=== PATIENT | male | born 1945 | race Caucasian/White ===

== ENCOUNTER 2022-05-15 17:42 | Inpatient (IN) ==
--- NOTE | 2022-05-15 18:13 | Emergency Department Note ---
History of Present Illness General Chief complaint: Referred by Doctor Stated complaint: WHITE BLOOD COUNT ELEVATED, Time Seen by Provider: 05/15/22 17:55 History of Present Illness Maximum Pain Intensity: 0 76-year-old male presents emergency department with a an ongoing treatment for pneumonia that started a few weeks ago. Patient was on doxycycline he did stop taking that 1 week ago. Patient was on prednisone as well and stopped that this week. Patient's been feeling short of breath and had a outpatient evaluation from [facility] today and repeat labs is white blood cell count in April was 11.7 and today it is 40,000. There was a concern for increased potential for infection. Patient has some burning with urination a cough and complains of shortness of breath. Patient denies chest pain. Patient denies nausea vomiting diarrhea denies fever. There are no other mitigating or alleviating factors Home Medications Medication Instructions Recorded Confirmed Type albuterol sulfate 90 mcg/actuation 2 puff inhalation Q4 PRN Shortness 06/18/19 08/02/19 History aerosol inhaler (Ventolin HFA) Of Breath amlodipine 5 mg tablet 2.5 mg PO QAM 06/18/19 08/02/19 History amoxicillin 500 mg capsule 2,000 mg PO UD PRN prior to dental 06/18/19 08/02/19 History appointments aspirin 81 mg tablet,delayed 81 mg PO QAM 06/18/19 08/02/19 History release atorvastatin 80 mg tablet 80 mg PO PM 06/18/19 08/02/19 History hydrocodone 5 mg-acetaminophen 325 1 tab PO BID 06/18/19 08/02/19 History mg tablet isosorbide mononitrate 30 mg 30 mg PO QAM 06/18/19 08/02/19 History tablet,extended release 24 hr lamotrigine 100 mg tablet 100 mg PO BID 06/18/19 08/02/19 History (Lamictal) latanoprost 0.005 % eye drops 1 drp ophthalmic (eye) HS 06/18/19 08/02/19 Histor y levetiracetam 750 mg tablet 1,500 mg PO BID 06/18/19 08/02/19 History losartan 25 mg tablet 25 mg PO QAM 06/18/19 08/02/19 History nitroglycerin 0.4 mg sublingual 0.4 mg sublingual UD PRN Angina 06/18/19 06/18/19 History tablet warfarin 5 mg tablet 5 mg PO USEASDIRECTD 06/18/19 08/02/19 History white petrolatum-mineral oil 83 1 applic ophthalmic (eye) Q4 PRN 06/18/19 08/02/19 History %-15 % eye ointment Dry Eye(S) Jardiance 10 mg PO DAILY 05/15/22 05/15/22 History Vitamin D3 25 mcg PO DAILY 05/15/22 05/15/22 History atenolol 25 mg tablet 25 mg PO DAILY 05/15/22 05/15/22 History brimonidine 0.2 % eye drops 1 drp ophthalmic (eye) BID 05/15/22 05/15/22 History fluticasone 250 mcg-salmeterol 50 1 inh inhalation BID 05/15/22 05/15/22 History mcg/dose blistr powdr for inhalation furosemide 20 mg tablet 20 mg PO USEASDIRECTD 05/15/22 05/15/22 History levetiracetam 500 mg tablet 500 mg PO BID 05/15/22 05/15/22 History omeprazole 20 mg PO DAILY 05/15/22 05/15/22 History potassium chloride 10 mEq 10 meq PO USEASDIRECTD 05/15/22 05/15/22 History tablet,extended release(part/cryst) Allergies Allergy/AdvReac Type Severity Reaction Status Date / Time lisinopril Allergy Mild HIVES Verified 08/02/19 10:23 Past Med/Surg History Medical History (Updated 05/15/22 @ 21:32 by Deejay Palacios DO) Singh's palsy Bulging lumbar disc Diabetes mellitus, [facility]not on any medications Difficulty swallowing Glaucoma Heart disease "s/p PTCA and RCA stent placement in 2005" follows with Dr. 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 Escobar--on keppra/lamictal Sleep apnea 2L oxygen via N/C Tremor of right hand Surgical History History of arthroscopy of right knee History of cardiac cath x2---1 prior to 2006 ([place]) and then 2006 (@ [facility] [place], [place]) History of colonoscopy with polypectomy History of heart artery stent x2--last 2005 per pt 2 stents total History of tonsillectomy History of tooth extraction all upper teeth History of wisdom tooth extraction Family History Sister Family history of diabetes mellitus Sister Family history of diabetes mellitus Brother Family history of esophageal cancer Other No family history of adverse response to anesthesia Social History Smoking Status: Never smoker Second Hand Exposure: Yes (parents smoked/ environment); Hx Alcohol Use: Yes Alcohol type: hard liquor Hx Substance Use: No Preferred Language: Maltese Communication Ability: Effective Slackman Required: No Beliefs That Will Affect Care: None Current Living Situation: Spouse Feels Safe at Home: Yes Assistive Devices: Cane, Denture - Upper, Glasses and Oxygen - at Night Review of Systems A total of 10 systems reviewed and were otherwise negative Constitutional: + body aches; no fever Respiratory: + cough and + dyspnea Cardiovascular: no chest pain Gastrointestinal: no abdominal pain Genitourinary (Male): + urinary frequency and + urinary hesitancy Physical Exam Vital Signs Vital Signs - 24 hr 05/15/22 17:45 05/15/22 18:23 05/15/22 18:26 Temperature 37.1 C Temperature Source Temporal Artery Scan Pulse Rate 76 73 Pulse Rate [Apical] 67 Pulse Rate from SpO2 Sensor Pulse Rhythm Irregular Pulse Rhythm [Apical] Irregular Respiratory Rate 18 20 20 Respiratory Effort / Characteristics Non-Labored Respiratory Depth Normal Blood Pressure 121/81 Blood Pressure [Right Arm] 111/65 Blood Pressure Mean 94 Blood Pressure Mean [Right Arm] 80 Pulse Oximetry 92 90 94 Oxygen Delivery Method Room Air Room Air Room Air Oxygen Flow Rate Sepsis Recent Fever Within 48 Hours No Sepsis New/Unexplained Change in Mental Status No Sepsis Action Taken by Nursing No Action Required 05/15/22 18:30 05/15/22 18:45 05/15/22 18:46 Temperature Temperature Source Pulse Rate Pulse Rate [Apical] 63 67 Pulse Rate from SpO2 Sensor Pulse Rhythm Pulse Rhythm [Apical] Respiratory Rate 16 17 Respiratory Effort / Characteristics Respiratory Depth Blood Pressure Blood Pressure [Right Arm] 105/66 129/69 Blood Pressure Mean Blood Pressure Mean [Right Arm] 79 89 Pulse Oximetry 92 88 L 95 Oxygen Delivery Method Room Air Room Air Nasal Cannula Oxygen Flow Rate 2 Sepsis Recent Fever Within 48 Hours Sepsis New/Unexplained Change in Mental Status Sepsis Action Taken by Nursing 05/15/22 19:15 05/15/22 18:59 05/15/22 18:59 Temperature Temperature Source Pulse Rate 67 Pulse Rate [Apical] 71 Pulse Rate from SpO2 Sensor Pulse Rhythm Pulse Rhythm [Apical] Respiratory Rate 20 15 Respiratory Effort / Characteristics Respiratory Depth Blood Pressure 126/69 Blood Pressure [Right Arm] 136/85 Blood Pressure Mean 88 Blood Pressure Mean [Right Arm] 102 Pulse Oximetry 96 Oxygen Delivery Method Nasal Cannula Oxygen Flow Rate 2 Sepsis Recent Fever Within 48 Hours Sepsis New/Unexplained Change in Mental Status Sepsis Action Taken by Nursing 05/15/22 19:00 05/15/22 19:00 05/15/22 19:13 Temperature Temperature Source Pulse Rate 64 Pulse Rate [Apical] Pulse Rate from SpO2 Sensor Pulse Rhythm Pulse Rhythm [Apical] Respiratory Rate 19 18 Respiratory Effort / Characteristics Respiratory Depth Blood Pressure 101/70 Blood Pressure [Right Arm] Blood Pressure Mean 80 Blood Pressure Mean [Right Arm] Pulse Oximetry Oxygen Delivery Method Oxygen Flow Rate Sepsis Recent Fever Within 48 Hours Sepsis New/Unexplained Change in Mental Status Sepsis Action Taken by Nursing 05/15/22 19:15 05/15/22 19:15 05/15/22 19:20 Temperature Temperature Source Pulse Rate 71 68 Pulse Rate [Apical] Pulse Rate from SpO2 Sensor 71 67 Pulse Rhythm Pulse Rhythm [Apical] Respiratory Rate 18 22 Respiratory Effort / Characteristics Respiratory Depth Blood Pressure 136/85 Blood Pressure [Right Arm] Blood Pressure Mean 102 Blood Pressure Mean [Right Arm] Pulse Oximetry 95 97 Oxygen Delivery Method Oxygen Flow Rate Sepsis Recent Fever Within 48 Hours Sepsis New/Unexplained Change in Mental Status Sepsis Action Taken by Nursing 05/15/22 19:30 05/15/22 19:30 05/15/22 19:40 Temperature Temperature Source Pulse Rate 70 67 Pulse Rate [Apical] Pulse Rate from SpO2 Sensor 71 68 Pulse Rhythm Pulse Rhythm [Apical] Respiratory Rate 21 15 Respiratory Effort / Characteristics Respiratory Depth Blood Pressure 140/82 Blood Pressure [Right Arm] Blood Pressure Mean 101 Blood Pressure Mean [Right Arm] Pulse Oximetry 95 94 Oxygen Delivery Method Oxygen Flow Rate Sepsis Recent Fever Within 48 Hours Sepsis New/Unexplained Change in Mental Status Sepsis Action Taken by Nursing 05/15/22 20:00 05/15/22 19:50 05/15/22 20:00 Temperature Temperature Source Pulse Rate 67 Pulse Rate [Apical] 67 Pulse Rate from SpO2 Sensor 73 Pulse Rhythm Pulse Rhythm [Apical] Respiratory Rate 18 18 Respiratory Effort / Characteristics Respiratory Depth Blood Pressure 109/83 Blood Pressure [Right Arm] 109/83 Blood Pressure Mean 91 Blood Pressure Mean [Right Arm] 91 Pulse Oximetry 96 95 Oxygen Delivery Method Nasal Cannula Oxygen Flow Rate 2 Sepsis Recent Fever Within 48 Hours Sepsis New/Unexplained Change in Mental Status Sepsis Action Taken by Nursing 05/15/22 20:00 05/15/22 20:10 05/15/22 20:20 Temperature Temperature Source Pulse Rate 71 76 78 Pulse Rate [Apical] Pulse Rate from SpO2 Sensor 68 71 79 Pulse Rhythm Pulse Rhythm [Apical] Respiratory Rate 22 20 20 Respiratory Effort / Characteristics Respiratory Depth Blood Pressure Blood Pressure [Right Arm] Blood Pressure Mean Blood Pressure Mean [Right Arm] Pulse Oximetry 96 96 96 Oxygen Delivery Method Oxygen Flow Rate Sepsis Recent Fever Within 48 Hours Sepsis New/Unexplained Change in Mental Status Sepsis Action Taken by Nursing 05/15/22 20:30 05/15/22 20:30 05/15/22 20:40 Temperature Temperature Source Pulse Rate 69 79 Pulse Rate [Apical] Pulse Rate from SpO2 Sensor 75 76 Pulse Rhythm Pulse Rhythm [Apical] Respiratory Rate 21 22 Respiratory Effort / Characteristics Respiratory Depth Blood Pressure 126/91 Blood Pressure [Right Arm] Blood Pressure Mean 102 Blood Pressure Mean [Right Arm] Pulse Oximetry 93 93 Oxygen Delivery Method Oxygen Flow Rate Sepsis Recent Fever Within 48 Hours Sepsis New/Unexplained Change in Mental Status Sepsis Action Taken by Nursing GENERAL: Patient is awake alert in no acute distress patient is resting comfortably and showing no signs of anxiety; patient is smiling interactive and in great spirits when conversing with me EYES: The conjunctivae are clear. The pupils are round and reactive. EARS, NOSE, MOUTH AND THROAT: The nose is without any evidence of any deformity. Mucous membranes are moist. Tongue is midline. NECK: The neck is nontender and supple. RESPIRATORY: Normal respiratory effort is noted there is no evidence of wheezing rhonchi or rales CARDIOVASCULAR: Irregularly irregular noted there no murmurs rubs or gallops normal S1 normal S2. GASTROINTESTINAL: The abdomen is soft. Abdomen is nontender. PELVIS: The Pelvis is stable. No tenderness to palpation is noted. BACK: No midline tenderness or or step-off noted range of motion in flexion extension as well as rotation no signs of muscle spasm noted MUSCULOSKELETAL/EXTREMITIES: There is no evidence of gross deformity full range of motion is noted in the hips and shoulders. SKIN: There is no obvious evidence of any rash. There are no petechiae, pallor or cyanosis noted. Patient has bruising to the right lower extremity that appears to be in different stages of healing in the right medrano region NEUROLOGIC: Patient is awake alert and oriented x3 strength is symmetric Course Reevaluation(s) Reevaluation #1: Patient was started on oxygen at 2 L due to pulse ox of 88%, patient was given IV Lasix, patient was empirically given IV Rocephin. Patient has an elevated white blood cell count chest x-ray concerning for CHF questionable pneumonia. Patient has stable A. fib and is on Coumadin. Patient is resting in no distress conversant with me speaking in full sentences. Time: 19:11 Consultations Consultation #1: Case was discussed with the [facility] hospitalist for admission Time: 19:34 Administered Medications Discontinued Medications Furosemide (Furosemide 40 Mg/4 Ml Vial) 40 mg IV ONE ONE Stop: 05/15/22 19:02 Last Admin: 05/15/22 19:15 Dose: 40 mg Documented By: SHLEBY Ceftriaxone Sodium (Rocephin) 2,000 mg in 70 mls @ 140 mls/hr IV NOW STA Stop: 05/15/22 19:30 Last Infusion: 05/15/22 19:45 Dose: 0 mls/hr Documented By: Admin: 05/15/22 19:15 Dose: 140 mls/hr Documented By: SHELBY Medical Decision Making Medical Records Attestation: I reviewed the patient's medical records. Home Medications Current Medication List: was personally reviewed by me Laboratory Data Attestation: I reviewed the patient's lab results. Leukocytosis which is increasing since April when the patient had a white blood cell count of 11 Result diagrams: 05/15/22 18:15 05/15/22 18:15 Lab Results 05/15/22 05/15/22 05/15/22 Range/Units 18:15 18:15 18:15 WBC 40.80 H* (4.8-10.8) K/ul RBC 5.47 (4.63-6.08) M/uL Hgb 16.8 (14.0-18.0) g/dl Hct 49.4 (40.1-51.0) % MCV 90.3 (80.0-100.0) fL MCH 30.7 (25.0-34.0) pg MCHC 34.0 (32.0-36.0) g/dL RDW Std Deviation 47.3 H (36.4-46.3) fL RDW Coeff of Ton 14.4 (11.5-14.5) % Plt Count 157 (130-400) K/uL MPV 11.0 (9.4-12.4) fL Immature Gran % (Auto) 2.0 % Neut % (Auto) 64.8 % Lymph % (Auto) 9.8 % Kleberg % (Auto) 23.0 % Eos % (Auto) 0.2 % Baso % (Auto) 0.2 % Neut # (Auto) 26.39 H (1.4-6.5) K/uL Lymph # (Auto) 4.01 H (1.2-3.4) K/uL Kleberg # (Auto) 9.40 H (0.24-0.82) K/uL Eos # (Auto) 0.08 (0-0.50) K/uL Baso # (Auto) 0.10 (0-0.2) K/uL Immature Gran # (Auto) 0.82 H (0.00-0.02) K/uL Echinocytes 2+ Acanthocytes (Spur) 1+ PT (9.0-12.0) Seconds INR (0.9-1.1) Sodium 133 L (136-145) mmol/L Potassium 4.0 (3.5-5.1) mmol/L Chloride 100 (98-107) mmol/L Carbon Dioxide 27 (21-32) mmol/L Anion Gap 6 (3-11) BUN 22 (6-23) mg/dl Creatinine 0.77 (0.6-1.4) mg/dl Est Cr Clr Drug Dosing 111.4 ml/min Est GFR ( Amer) 102.9 ml/min Est GFR (Non-Af Amer) 88.8 ml/min BUN/Creatinine Ratio 28.6 H (10-20) Glucose 108 H (70-99(Fasting)) mg/dl Lactate 1.4 (0.4-2.0) mmol/L Calcium 8.8 (8.5-10.1) mg/dl Magnesium 2.5 H (1.7-2.4) mg/dl Total Bilirubin 1.7 H (0.2-1.0) mg/dl Direct Bilirubin 0.4 H (0-0.2) mg/dl AST 16 (13-39) U/L ALT 36 (7-52) U/L Alkaline Phosphatase 56 (34-104) U/L Troponin I High Sens 13.4 (0-20) pg/ml B-Natriuretic Peptide (0-100) pg/ml Total Protein 6.6 (6.0-8.3) gm/dl Albumin 3.6 (3.4-5.0) gm/dl Procalcitonin (0-0.5) ng/ml Urine Color Urine Appearance (Clear) Urine pH (4.5-7.5) Ur Specific [place] (1.000-1.030) Urine Protein (Negative) Urine Glucose (UA) (Negative) Urine Ketones (Negative) Urine Blood (Negative) Urine Nitrite (Negative) Urine Bilirubin (Negative) Urine Urobilinogen (Negative) Ur Leukocyte Esterase (Negative) Urine WBC (Auto) (0-5) /hpf Urine RBC (Auto) (0-4) /hpf U Hyaline Cast (Auto) (0-5) /lpf U Epithel Cells (Auto) (0-5) /lpf Urine Bacteria (Auto) (Negative) SARS-CoV-2, RNA, NAAT (NEGATIVE) 05/15/22 05/15/22 05/15/22 Range/Units 18:15 18:15 18:15 WBC (4.8-10.8) K/ul RBC (4.63-6.08) M/uL Hgb (14.0-18.0) g/dl Hct (40.1-51.0) % MCV (80.0-100.0) fL MCH (25.0-34.0) pg MCHC (32.0-36.0) g/dL RDW Std Deviation (36.4-46.3) fL RDW Coeff of Ton (11.5-14.5) % Plt Count (130-400) K/uL MPV (9.4-12.4) fL Immature Gran % (Auto) % Neut % (Auto) % Lymph % (Auto) % Kleberg % (Auto) % Eos % (Auto) % Baso % (Auto) % Neut # (Auto) (1.4-6.5) K/uL Lymph # (Auto) (1.2-3.4) K/uL Kleberg # (Auto) (0.24-0.82) K/uL Eos # (Auto) (0-0.50) K/uL Baso # (Auto) (0-0.2) K/uL Immature Gran # (Auto) (0.00-0.02) K/uL Echinocytes Acanthocytes (Spur) PT 24.0 H (9.0-12.0) Seconds INR 2.4 H (0.9-1.1) Sodium (136-145) mmol/L Potassium (3.5-5.1) mmol/L Chloride (98-107) mmol/L Carbon Dioxide (21-32) mmol/L Anion Gap (3-11) BUN (6-23) mg/dl Creatinine (0.6-1.4) mg/dl Est Cr Clr Drug Dosing ml/min Est GFR ( Amer) ml/min Est GFR (Non-Af Amer) ml/min BUN/Creatinine Ratio (10-20) Glucose (70-99(Fasting)) mg/dl Lactate (0.4-2.0) mmol/L Calcium (8.5-10.1) mg/dl Magnesium (1.7-2.4) mg/dl Total Bilirubin (0.2-1.0) mg/dl Direct Bilirubin (0-0.2) mg/dl AST (13-39) U/L ALT (7-52) U/L Alkaline Phosphatase (34-104) U/L Troponin I High Sens (0-20) pg/ml B-Natriuretic Peptide (0-100) pg/ml Total Protein (6.0-8.3) gm/dl Albumin (3.4-5.0) gm/dl Procalcitonin 0.17 (0-0.5) ng/ml Urine Color Urine Appearance (Clear) Urine pH (4.5-7.5) Ur Specific [place] (1.000-1.030) Urine Protein (Negative) Urine Glucose (UA) (Negative) Urine Ketones (Negative) Urine Blood (Negative) Urine Nitrite (Negative) Urine Bilirubin (Negative) Urine Urobilinogen (Negative) Ur Leukocyte Esterase (Negative) Urine WBC (Auto) (0-5) /hpf Urine RBC (Auto) (0-4) /hpf U Hyaline Cast (Auto) (0-5) /lpf U Epithel Cells (Auto) (0-5) /lpf Urine Bacteria (Auto) (Negative) SARS-CoV-2, RNA, NAAT NEGATIVE (NEGATIVE) 05/15/22 05/15/22 Range/Units 18:15 19:18 WBC (4.8-10.8) K/ul RBC (4.63-6.08) M/uL Hgb (14.0-18.0) g/dl Hct (40.1-51.0) % MCV (80.0-100.0) fL MCH (25.0-34.0) pg MCHC (32.0-36.0) g/dL RDW Std Deviation (36.4-46.3) fL RDW Coeff of Ton (11.5-14.5) % Plt Count (130-400) K/uL MPV (9.4-12.4) fL Immature Gran % (Auto) % Neut % (Auto) % Lymph % (Auto) % Kleberg % (Auto) % Eos % (Auto) % Baso % (Auto) % Neut # (Auto) (1.4-6.5) K/uL Lymph # (Auto) (1.2-3.4) K/uL Kleberg # (Auto) (0.24-0.82) K/uL Eos # (Auto) (0-0.50) K/uL Baso # (Auto) (0-0.2) K/uL Immature Gran # (Auto) (0.00-0.02) K/uL Echinocytes Acanthocytes (Spur) PT (9.0-12.0) Seconds INR (0.9-1.1) Sodium (136-145) mmol/L Potassium (3.5-5.1) mmol/L Chloride (98-107) mmol/L Carbon Dioxide (21-32) mmol/L Anion Gap (3-11) BUN (6-23) mg/dl Creatinine (0.6-1.4) mg/dl Est Cr Clr Drug Dosing ml/min Est GFR ( Amer) ml/min Est GFR (Non-Af Amer) ml/min BUN/Creatinine Ratio (10-20) Glucose (70-99(Fasting)) mg/dl Lactate (0.4-2.0) mmol/L Calcium (8.5-10.1) mg/dl Magnesium (1.7-2.4) mg/dl Total Bilirubin (0.2-1.0) mg/dl Direct Bilirubin (0-0.2) mg/dl AST (13-39) U/L ALT (7-52) U/L Alkaline Phosphatase (34-104) U/L Troponin I High Sens (0-20) pg/ml B-Natriuretic Peptide 163 H (0-100) pg/ml Total Protein (6.0-8.3) gm/dl Albumin (3.4-5.0) gm/dl Procalcitonin (0-0.5) ng/ml Urine Color Yellow Urine Appearance Cloudy A (Clear) Urine pH 5.0 (4.5-7.5) Ur Specific [place] 1.024 (1.000-1.030) Urine Protein Trace H (Negative) Urine Glucose (UA) 3+ H (Negative) Urine Ketones Negative (Negative) Urine Blood Trace H (Negative) Urine Nitrite Positive A (Negative) Urine Bilirubin Negative (Negative) Urine Urobilinogen Negative (Negative) Ur Leukocyte Esterase Trace H (Negative) Urine WBC (Auto) 10-30 H (0-5) /hpf Urine RBC (Auto) 0-4 (0-4) /hpf U Hyaline Cast (Auto) 1-5 (0-5) /lpf U Epithel Cells (Auto) 0-5 (0-5) /lpf Urine Bacteria (Auto) 4+ H (Negative) SARS-CoV-2, RNA, NAAT (NEGATIVE) Imaging Data Attestation: I personally reviewed and interpreted this imaging study as follows: Radiologist's Impression: Chest X-Ray 05/15/22 17:53 XR chest 1V portable HISTORY: Sepsis COMPARISON: Chest 02/23/2016. FINDINGS: No pneumothorax. No pleural effusions. The cardiac silhouette is mildly enlarged. There is perihilar interstitial/vascular thickening suggestive of mild congestive change. A few bibasilar linear densities favor subsegmental atelectasis. IMPRESSION: 1. Cardiomegaly and mild congestive change. 2. A few bibasilar linear densities favor subsegmental atelectasis. ACT 112: Negative or not required by law. Electronically signed by: Panchito Rivas M.D. 05/15/2022 6:24 PM ECG Data Attestation: I personally reviewed and interpreted this ECG as follows: Additional Comments: EKG interpreted by me atrial fibrillation rate of 66 left axis deviation no obvious ST segment elevation or depression MDM Narrative Medical decision making differential diagnosis includes sepsis, pneumonia, reaction to prednisone,urinary tract infection dehydration, chf. Plan is to initiate sepsis protocol and observe; patient was found to have CHF on chest x- ray possible pneumonia has an elevated white blood cell count this seems a lot higher than if the patient was on prednisone alone. Patient may have an inflammatory or infectious process. Patient was started on Lasix. Patient was also given empiric Rocephin. Patient started on oxygen. My concern is the patient has CHF has stable A. fib and potentially continued pulmonary infiltrate. Patient will be admitted to the hospitalist for further treatment and evaluation Impression & Plan CHF (congestive heart failure), Pneumonia, Leukocytosis, Hypoxia, Acute UTI (urinary tract infection) Discharge Plan Visit Data Chief Complaint: Referred by Doctor Stated Complaint: WHITE BLOOD COUNT ELEVATED, ED Provider: Deejay Palacios Discharge Problem: CHF (congestive heart failure), Pneumonia, Leukocytosis, Hypoxia, Acute UTI (ur inary tract infection) Patient Disposition: Being Evaluated by Hospitalist Forms Stand Alone Forms: [facility] Prescriptions Prescriptions: No Action amoxicillin 500 mg Capsule 2,000 mg PO UD PRN (Reason: prior to dental appointments) latanoprost 0.005 % Drops 1 drp OPHTHALMIC (EYE) HS atorvastatin 80 mg Tablet 80 mg PO PM hydrocodone-acetaminophen 5-325 mg Tablet 1 tab PO BID isosorbide mononitrate 30 mg Tablet Extended Release 24 Hr 30 mg PO QAM amlodipine 5 mg Tablet 2.5 mg PO QAM aspirin 81 mg Tablet,Delayed Release (Dr/Ec) 81 mg PO QAM warfarin 5 mg Tablet 5 mg PO USEASDIRECTD Rx Instructions: coumadin 7.5mg po every Tuesday and tuesday and 5mg po all other days. losartan 25 mg Tablet 25 mg PO QAM nitroglycerin 0.4 mg Tablet, Sublingual 0.4 mg sublingual UD PRN (Reason: Angina) Label Comments: Patient states "I've never head to use this yet" levetiracetam 750 mg Tablet 1,500 mg PO BID albuterol sulfate [Ventolin HFA] 90 mcg/actuation Hfa Aerosol Inhaler 2 puff INHALATION Q4 PRN (Reason: Shortness Of Breath) lamotrigine [Lamictal] 100 mg Tablet 100 mg PO BID white petrolatum-mineral oil 83-15 % Ointment 1 applic OPHTHALMIC (EYE) Q4 PRN (Reason: Dry Eye(S)) fluticasone propion-salmeterol 250-50 mcg/dose blister with device 1 inh INHALATION BID atenolol 25 mg Tablet 25 mg PO DAILY levetiracetam 500 mg tablet 500 mg PO BID furosemide 20 mg tablet 20 mg PO USEASDIRECTD potassium chloride 10 mEq tablet,ER particles/crystals 10 meq PO USEASDIRECTD Rx Instructions: two tab on tue, tue and tuesday and one tablet other days. brimonidine [Alphagan] 0.2 % Drops 1 drp OPHTHALMIC (EYE) BID Jardiance 10 mg PO DAILY Vitamin D3 25 mcg PO DAILY omeprazole 20 mg PO DAILY Referrals Referrals: Domo Mcfarlane MD [Primary Care Provider] -
--- NOTE | 2022-05-15 18:26 | XRay Report ---
XR chest 1V portable HISTORY: Sepsis COMPARISON: Chest 02/23/2016. FINDINGS: No pneumothorax. No pleural effusions. The cardiac silhouette is mildly enlarged. There is perihilar interstitial/vascular thickening suggestive of mild congestive change. A few bibasilar line ar densities favor subsegmental atelectasis. IMPRESSION: 1. Cardiomegaly and mild congestive change. 2. A few bibasilar linear densities favor subsegmental atelectasis. ACT 112: Negative or not required by law. Electronically signed by: Panchito Rivas M.D. 05/15/2022 6:24 PM
[2022-05-15 18:42] LABS: INR 2.4 (0.9-1.1)
[2022-05-15 18:52] LABS: Hematocrit (blood only) 49.4 % (40.1-51.0); Hemoglobin 16.8 g/dl (14.0-18.0); Mean Corpuscular Hemoglobin 30.7 pg (25.0-34.0); Mean Corpuscular Volume 90.3 fL (80.0-100.0); Platelet Count 157 K/uL (130-400); RDW Coefficient of Variation 14.4 % (11.5-14.5); RDW Standard Deviation 47.3 fL (36.4-46.3); Red Blood Count 5.47 M/uL (4.63-6.08)
[2022-05-15 18:57] LABS: Acanthocytes 1+; Basophils % (auto) 0.2 %; Echinocytes 2+; Eosinophils # (auto) 0.08 K/uL (0-0.50); Eosinophils % (auto) 0.2 %; Immature Granulocytes # (auto) 0.82 K/uL (0.00-0.02); Lymphocytes # (auto) 4.01 K/uL (1.2-3.4); Lymphocytes % (auto) 9.8 %; Neutrophils # (auto) 26.39 K/uL (1.4-6.5); Neutrophils % (auto) 64.8 %
[2022-05-15 18:58] LABS: Albumin Level 3.6 gm/dl (3.4-5.0); BUN Creatinine Ratio 28.6 (10-20); Bilirubin Direct 0.4 mg/dl (0-0.2); Bilirubin,Total 1.7 mg/dl (0.2-1.0); Calcium 8.8 mg/dl (8.5-10.1); Creatinine Clr Calc Pharmacy 111.4 ml/min; Est GFR (African American) 102.9 ml/min; Est GFR (Non-African American) 88.8 ml/min; Magnesium 2.5 mg/dl (1.7-2.4); Total Protein 6.6 gm/dl (6.0-8.3); Troponin I High Sensitivity 13.4 pg/ml (0-20)
[2022-05-15] MEDS ORDERED: FUROSEMIDE 40 MG/4 ML VIAL IV ONE (19:01)
[2022-05-15] MEDS ORDERED: cefTRIAXone SODIUM 2,000 MG/70 ML BAG IV STA (19:01)
[2022-05-15 19:32] LABS: Appearance Urine Cloudy (Clear); Bacteria Urine Automated 4+ (Negative); Bilirubin Urine Negative (Negative); Blood Urine Trace (Negative); Color Urine Yellow; Epithelial Cell Urine Auto 0-5 /lpf (0-5); Glucose Urine UA 3+ (Negative); Ketones Urine Negative (Negative); Leukocyte Esterase Urine Trace (Negative); Nitrite Urine Positive (Negative); Protein Urine Trace (Negative); RBC Urine Automated 0-4 /hpf (0-4); Specific Gravity Urine 1.024 (1.000-1.030); Urobilinogen Urine Negative (Negative)
[2022-05-15] MEDS ORDERED: POLYETHYLENE (MIRALAX) 17 GM PACK PO PRN (22:18)
[2022-05-15] MEDS ORDERED: ARTIFICIAL TEARS OP OINT 3.5 GM TUBE OP PRN (22:18)
[2022-05-15] MEDS ORDERED: levETIRAcetam 500 MG TAB PO SCH (22:18)
[2022-05-15] MEDS ORDERED: ACETAMINOPHEN 325 MG TAB PO PRN (22:18)
[2022-05-15] MEDS ORDERED: NITROGLYCERIN SL 0.4 MG/TAB TAB SL PRN ×2 (22:18)
[2022-05-15] MEDS ORDERED: ALBUTEROL HFA 8 GM INHALER INH PRN (22:18)
[2022-05-15] MEDS ORDERED: WARFARIN SOD 7.5 MG TAB PO SCH (23:00)
--- NOTE | 2022-05-15 23:00 | History and Physical Report ---
DATE OF ADMISSION: 05/15/2022. CHIEF COMPLAINT: Cough, shortness of breath. HISTORY OF PRESENT ILLNESS: This is a 76-year-old male with past medical history significant for type 2 diabetes, hyperlipidemia, male hypogonadism, Rathke's cleft cyst, dyspnea on exertion, nocturnal hypoxemia, paroxysmal atrial fibrillation, ascending aortic enlargement, CAD, hypertension, exercise-induced angina, diverticulosis, morbid obesity, GERD, history of dysphagia, glaucoma, seizure disorder, simple partial; retroperitoneal lymphadenopathy, leukocytosis, history of central sleep apnea, history of ITP, presents with ongoing cough and shortness of breath. Cough has been going on since April and he was initially treated for pneumonia with doxycycline and prednisone. He finished prednisone course 3 days ago, doxycycline 1 week ago. Cough is slightly better.Gets short of breath on exertion. Has orthopnea. He is taking Lasix currently alternative 40 mg and 20 mg. Today he is feeling weak and tired. He is also complaining of burning micturition going on for 1 week out patient lab study, found to have leukocytosis and sent him here. Here, he is saturating okay on 2 liters, hemodynamically stable. His white count is 40,000. His urinalysis is grossly positive. Chest x-ray showed pulmonary congestion. Denies any fever or chills. Denies any headache, no dizziness, no blurred visions, no earache, no runny nose, no sore throat. Has dry cough. No difficulty swallowing. Appetite is okay. No chest pain. No nausea, no vomiting, no abdominal pain. Normal bowel movements. Has burning micturition, increased frequency of micturition. No swelling in the legs. Ambulates with a cane. ALLERGIES: LISINOPRIL. PAST MEDICAL HISTORY: As mentioned above. PAST SURGICAL HISTORY: Colonoscopy, right coronary artery stent placement, pilonidal cyst removed, heart catheterization, left knee arthroscopy, tonsillectomy. MEDICATIONS: The patient is on albuterol 2 puffs inhalation q.4 hours p.r.n., amlodipine 2.5 mg p.o. a.m., amoxicillin prior to dental appointments, aspirin 81 mg p.o. daily, atenolol 25 mg p.o. daily, atorvastatin 80 mg p.o. daily, Alphagan 1 ophthalmic drop b.i.d., fluticasone/salmeterol 1 puff inhalation b.i.d., Lasix 20 mg p.o. daily alternating with 40 mg p.o. daily, isosorbide mononitrate 30 mg p.o. a.m., Jardiance 10 mg p.o. daily, Lamictal 100 mg p.o. b.i.d., latanoprost 1 ophthalmic drop at bedtime, Keppra, 2000 mg p.o. b.i.d.; losartan 25 mg p.o. daily, nitroglycerin 0.4 mg sublingual p.r.n., omeprazole 20 mg p.o. daily, potassium chloride 10 mEq alternating with 20 mEq daily, vitamin D 25 mcg p.o. daily, Coumadin 7.5 mg on Tuesdays and Saturdays and 5 mg all other days. FAMILY HISTORY: Significant for mother has leukemia, heart disorder, hypertension; father has heart disorder, hypertension, lung disorder; brother has throat cancer, heart disorder, hypertension; sister has lung disorder, colon cancer, diabetes, heart disorder. SOCIAL HISTORY: , former smoker, only socially smoked. Alcohol, rarely. No drug use. REVIEW OF SYSTEMS: As per HPI. Rest of review of systems is negative. PHYSICAL EXAMINATION: GENERAL: The patient is morbidly obese, not in acute distress. VITAL SIGNS: Temperature 37.1, pulse 79, respiratory rate 22, blood pressure 126/91, oxygen 93% on 2 liters. HEENT: Pupils equal, round and reactive to light. Oral mucosa moist. NECK: No JVD. No neck masses. CARDIOVASCULAR: S1 and S2 heard. Regular rate and rhythm. Ejection systolic murmur heard in mitral area. RESPIRATORY SYSTEM: Normal AP diameter. No accessory muscle use. No obvious wheezing or crackles. ABDOMEN: Soft, bowel sounds present, nontender, no distention. CENTRAL NERVOUS SYSTEM: Alert and oriented. No facial droop. Speech is clear. Insight is okay. Obeys simple commands. Moves extremities. EXTREMITIES: No edema, no erythema. LABORATORY DATA: WBC 14.8, hemoglobin 16.8, hematocrit 49.4, platelets 157. PT 24, INR 2.4. Sodium 133, potassium 4, chloride 100, CO2 of 27, BUN 22, creatinine 0.7, serum glucose 108. Lactate 1.4, calcium 8.8, magnesium 2.5, total bilirubin 1.7, direct bilirubin 0.4, AST 16, ALT 36, alkaline phosphatase 56. Troponin I high sensitivity 13.4. BNP is 163. Procalcitonin 0.17. Urinalysis positive for nitrite and +4 bacteria. SARS-CoV-2 rapid test negative. IMAGING DATA: Chest x-ray: Cardiomegaly and mild congestive changes, few bibasilar linear densities,mostly subsegmental atelectasis. EKG: Atrial fibrillation at a rate of 66. ASSESSMENT AND PLAN: This is a 76-year-old male who presents with ongoing cough and shortness of breath and also found to have urinary tract infection. 1. Shortness of breath, possibly acute on chronic diastolic congestive heart failure. Recently treated for pneumonia with doxycycline and steroids, received a dose of IV Lasix 40 in the ER. Continue with IV Lasix 40 daily. Daily weights, I's and O's. Follow echocardiogram. Monitor in the tele floor. Consult cardiology in the a.m. 2. Leukocytosis, possibly from recent steroid use and also urinary tract infection. Empirically start Rocephin. Follow the cultures. Follow the response. Follow the labs. 3. History of seizure disorder, simple partial: On Keppra and Lamictal, which will be continued. 4. History of paroxysmal atrial fibrillation, rate controlled with atenolol: On Coumadin. INR is 2.4. Follow the PT/INR. 5. History of diabetes: Holding Jardiance. Place on insulin sliding scale. Follow the blood sugar. Follow HbA1c levels. 6. History of hyperlipidemia: Continue statin. 7. History of coronary artery disease, status post stent: Continue aspirin, statin, and beta arlyn. 8. History of nocturnal hypoxia: On oxygen while sleeping. 9. Hypertension: On amlodipine, atenolol, losartan and diuretics. We will monitor the blood pressure. 10. Gastroesophageal reflux disease: On omeprazole. 11. Morbid obesity: Needs counseling. 12. Glaucoma. Continue home eye drops. 13. History of idiopathic thrombocytopenic purpura We will follow the labs. 14. Deep venous thrombosis prophylaxis: On Coumadin. INR therapeutic. DISPOSITION: Closely monitor in the tele floor. Level 1 full code. PT, OT prior to discharge. Expect to discharge home and follow with family doctor. Job ID: [id number] [facility]
[2022-05-15] MEDS: levETIRAcetam 500 MG TAB PO SCH (23:39)
[2022-05-15] MEDS: ATORVASTATIN 40 MG TAB PO SCH (23:41)
[2022-05-15] MEDS: INSULIN ASPART PER UNIT SC SCH (23:41)
[2022-05-15] MEDS: lamoTRIgine 100 MG TAB PO SCH (23:41)
[2022-05-15] MEDS: LATANOPROST 0.005% OP SOLN 2.5 ML BTL OP SCH (23:42)
[2022-05-15] MEDS: BRIMONIDINE TARTRATE 0.2% 5ML OP SCH (23:42)
[2022-05-16 06:06] LABS: INR 2.1 (0.9-1.1); Prothrombin Time 21.9 Seconds (9.0-12.0)
[2022-05-16 06:16] LABS: BUN Creatinine Ratio 29.9 (10-20); Calcium 8.6 mg/dl (8.5-10.1); Creatinine Clr Calc Pharmacy 109.5 ml/min; Est GFR (African American) 102.9 ml/min; Est GFR (Non-African American) 88.8 ml/min; Magnesium 2.5 mg/dl (1.7-2.4); Potassium 3.7 mmol/L (3.5-5.1)
[2022-05-16 06:35] LABS: Basophils # (auto) 0.07 K/uL (0-0.2); Basophils % (auto) 0.3 %; Eosinophils % (auto) 0.7 %; Hematocrit (blood only) 47.4 % (40.1-51.0); Hemoglobin 15.9 g/dl (14.0-18.0); Immature Granulocytes # (auto) 0.55 K/uL (0.00-0.02); Immature Granulocytes % (auto) 2.1 %; Lymphocytes # (auto) 3.14 K/uL (1.2-3.4); Lymphocytes % (auto) 11.7 %; Mean Corpuscular Hemoglobin 30.6 pg (25.0-34.0); Mean Corpuscular Hgb Conc 33.5 g/dL (32.0-36.0); Mean Corpuscular Volume 91.3 fL (80.0-100.0); Mean Platelet Volume 11.2 fL (9.4-12.4); Monocytes # (auto) 4.82 K/uL (0.24-0.82); Neutrophils # (auto) 18.01 K/uL (1.4-6.5); Neutrophils % (auto) 67.2 %; Platelet Count 127 K/uL (130-400); Platelet Estimate Decreased (Normal); RDW Coefficient of Variation 14.3 % (11.5-14.5); RDW Standard Deviation 47.9 fL (36.4-46.3); Red Blood Count 5.19 M/uL (4.63-6.08); White Blood Count 26.79 K/ul (4.8-10.8)
[2022-05-16] MEDS: INSULIN ASPART PER UNIT SC SCH ×4 (08:20→20:00)
[2022-05-16] MEDS: amLODIPine BESYLATE 5 MG TAB PO SCH (08:21)
[2022-05-16] MEDS: ASPIRIN 81 MG ECTAB PO SCH (08:21)
[2022-05-16] MEDS: ISOSORBIDE MONO EXTENDED REL 30 MG TABCR PO SCH (08:21)
[2022-05-16] MEDS: FLUTICASONE/VILANTEROL 200/25MCG 14 PUFFS/INHALER INH SCH (08:21)
[2022-05-16] MEDS: CHOLECALCIFEROL 1,000 UNITS 25 MCG TAB PO SCH (08:21)
[2022-05-16] MEDS: ATENOLOL 25 MG TABLET PO SCH (08:21)
[2022-05-16] MEDS: PANTOprazole 40 MG TAB PO SCH (08:22)
[2022-05-16] MEDS: BRIMONIDINE TARTRATE 0.2% 5ML OP SCH ×2 (08:22→20:00)
[2022-05-16] MEDS: LOSARTAN POTASSIUM 25 MG TAB PO SCH (08:22)
[2022-05-16] MEDS: lamoTRIgine 100 MG TAB PO SCH ×2 (08:22→20:01)
[2022-05-16] MEDS: FUROSEMIDE 40 MG/4 ML VIAL IV SCH (08:22)
[2022-05-16] MEDS: levETIRAcetam 500 MG TAB PO SCH ×2 (08:22→20:01)
[2022-05-16] MEDS ORDERED: POTASSIUM CHLORIDE 10 MEQ TABCR PO SCH (09:00)
--- NOTE | 2022-05-16 09:16 | Cardiology Consultation ---
Date of Consultation May 16, 2022 Assessment & Plan (1) Acute UTI (urinary tract infection): (2) CHF (congestive heart failure): (3) PAF (paroxysmal atrial fibrillation): (4) Heart disease: Plan I think this patient essentially presented with a gram-negative UTI. He has an extensive cardiac history but has been stable until this recent illness. He most likely had mild congestive heart failure causing his shortness of breath and is evidence on his chest x-ray. He was given IV Lasix x1 in the emergency department and he feels markedly improved. At this point I would continue Lasix IV as needed. Continue to treat his UTI and consider a urology consult. History of Present Illness Attending Physician: Cezar Collins MD History of Present Illness This is a 76-year-old male patient with previous history as outlined below. He has multiple medical problems including ischemic heart disease, paroxysmal atrial fibrillation, diabetes and sleep apnea. He presented with a UTI and has been started on antibiotics. He probably had some mild congestive heart failure on admission and was given IV Lasix with marked improvement in his symptoms. He is currently on a rate controlled atrial fibrillation on the monitor. He is anticoagulated with warfarin. Past medical history: 1.ASCVD 1.Status post December 2005 PCI of the mid RCA, distal RCA occlusion, [place] 2.Angina, similar to his prior angina leading to PCI in 2005, leading to abnormal nuclear stress testing and ultimately January 06, 2017 cardiac catheterization demonstrating a 100% mid-LAD lesion status post PCI with a drug- eluting stent. The RCA was noted to have a mid vessel 70-80% lesion threatening a big RV acute marginal branch and a chronic total occlusion distally. He did no t undergo intervention of the mid RCA lesion due to contrast load concerns though the lesion was felt to be easily PCI'd if he has any angina. 2.Aortic root and proximal ascending thoracic aorta enlargement. 3.Valvular heart diease. 4.Paroxysmal atrial fibrillation, diagnosed in April 2015 5.Chronic coumadin anticoagulation. 6.Central sleep apnea. Unable to tolerate PAP therapy 7.Nocturnal hypoxemia, prescribed supplemental oxygen therapy, 2 L/min QHS 8.Hypertension. 9.Hyperlipidemia. 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 Last seizure was November 2011, none since initiation of Lamictal. 12.Essential tremor 13.Rathke's cleft cyst 14.Bronchiectasis, right upper lobe nodule, numerous calcified bilateral hiatal and mediastinal nodes indicating prior granulomatous disease. Followed by Pulmonary Medicine. 15.GERD Allergies Allergy/AdvReac Type Severity Reaction Status Date / Time lisinopril Allergy Mild HIVES Verified 08/02/19 10:23 Home Medications Medication Instructions Recorded Confirmed Type albuterol sulfate 90 mcg/actuation 2 puff inhalation Q4 PRN Shortness 06/18/19 08/02/19 History aerosol inhaler (Ventolin HFA) Of Breath amlodipine 5 mg tablet 2.5 mg PO QAM 06/18/19 08/02/19 History amoxicillin 500 mg capsule 2,000 mg PO UD PRN prior to dental 06/18/19 08/02/19 History appointments aspirin 81 mg tablet,delayed 81 mg PO QAM 06/18/19 08/02/19 History release atorvastatin 80 mg tablet 80 mg PO PM 06/18/19 08/02/19 History hydrocodone 5 mg-acetaminophen 325 1 tab PO BID 06/18/19 08/02/19 History mg tablet isosorbide mononitrate 30 mg 30 mg PO QAM 06/18/19 08/02/19 History tablet,extended release 24 hr lamotrigine 100 mg tablet 100 mg PO BID 06/18/19 08/02/19 History (Lamictal) latanoprost 0.005 % eye drops 1 drp ophthalmic (eye) HS 06/18/19 08/02/19 History levetiracetam 750 mg tablet 1,500 mg PO BID 06/18/19 08/02/19 History losartan 25 mg tablet 25 mg PO QAM 06/18/19 08/02/19 History nitroglycerin 0.4 mg sublingual 0.4 mg sublingual UD PRN Angina 06/18/19 06/18/19 History tablet warfarin 5 mg tablet 5 mg PO USEASDIRECTD 06/18/19 08/02/19 History white petrolatum-mineral oil 83 1 applic ophthalmic (eye) Q4 PRN 06/18/19 08/02/19 History %-15 % eye ointment Dry Eye(S) Jardiance 10 mg PO DAILY 05/15/22 05/15/22 History Vitamin D3 25 mcg PO DAILY 05/15/22 05/15/22 History atenolol 25 mg tablet 25 mg PO DAILY 05/15/22 05/15/22 History brimonidine 0.2 % eye drops 1 drp ophthalmic (eye) BID 05/15/22 05/15/22 History fluticasone 250 mcg-salmeterol 50 1 inh inhalation BID 05/15/22 05/15/22 History mcg/dose blistr powdr for inhalation furosemide 20 mg tablet 20 mg PO USEASDIRECTD 05/15/22 05/15/22 History levetiracetam 500 mg tablet 500 mg PO BID 05/15/22 05/15/22 History omeprazole 20 mg PO DAILY 05/15/22 05/15/22 History potassium chloride 10 mEq 10 meq PO USEASDIRECTD 05/15/22 05/15/22 History tablet,extended release(part/cryst) Patient History Medical History (Updated 05/16/22 @ 14:40 by Cezar Collins MD) Singh's palsy Bulging lumbar disc Diabetes mellitus, [facility]--not on any medications Difficulty swallowing Glaucoma Heart disease "s/p PTCA and RCA stent placement in 2005" follows with Dr. 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 Escobar--on keppra/lamictal Sleep apnea 2L oxygen via N/C Tremor of right hand Surgical History History of arthroscopy of right knee History of cardiac cath x2---1 prior to 2005 [place] then [place] [facility] [place] History of colonoscopy with polypectomy History of heart artery stent x2--last 2005 per pt 2 stents total History of tonsillectomy History of tooth extraction all upper teeth History of wisdom tooth extraction Family History Sister Family history of diabetes mellitus Sister Family history of diabetes mellitus Brother Family history of esophageal cancer Other No family history of adverse response to anesthesia Social History Smoking Status: Never smoker Second Hand Exposure: Yes (parents smoked/ environment); Hx Alcohol Use: Yes Alcohol type: hard liquor Hx Substance Use: No Preferred Language: Estonian Communication Ability: Effective 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 All other 10 point review of systems are negative. Physical Exam Physical Exam: General: no acute distress and stated age Head: normocephalic, no masses, lesions, tenderness or abnormalities Eyes: conjunctiva are pink and non-injected, sclera clear Neck: supple, no adenopathy, no bruits, normal jugular venous pulse, no hepatojugular reflux Chest: normal shape and normal respiratory effort Lungs: clear to auscultation and percussion Cardiac Exam: - irregular rate & rhythm, no murmurs gallops or rubs - normal S1, normal S2 Pulses: 2(+) throughout Abdomen: abdomen soft, non-tender, no abnormal masses and no hepatosplenomegaly Musculoskeletal: no gait disturbance, no joint inflammation, no deforming arthritis Extremities: no edema and no cyanosis Neuro: grossly normal exam Results & Data ([facility]) Vital Signs (Past 12 Hours) Vital Signs Temp Pulse Pulse Resp BP BP Pulse Ox 05/16/22 07:32 36.6 C 75 18 122/82 98 05/16/22 02:50 36.3 C L 73 20 130/84 95 05/15/22 22:32 85 05/15/22 22:25 05/15/22 22:25 36.8 C 86 20 143/92 H 93 05/15/22 22:00 72 17 121/70 95 05/15/22 21:40 77 21 96 05/15/22 21:30 80 19 89 L 05/15/22 21:30 128/86 05/15/22 21:20 78 21 93 O2 Del Method O2 Flow Rate 05/16/22 07:32 Nasal Cannula 2 05/16/22 02:50 Nasal Cannula 2 05/15/22 22:32 05/15/22 22:25 Nasal Cannula 2 05/15/22 22:25 2 05/15/22 22:00 Nasal Cannula 2 05/15/22 21:40 05/15/22 21:30 05/15/22 21:30 05/15/22 21:20 Laboratory Results Laboratory Results - last 24 hr 05/15/22 05/15/22 05/15/22 18:15 18:15 18:15 WBC 40.80 H* RBC 5.47 Hgb 16.8 Hct 49.4 MCV 90.3 MCH 30.7 MCHC 34.0 RDW Std Deviation 47.3 H RDW Coeff of Ton 14.4 Plt Count 157 MPV 11.0 Immature Gran % (Auto) 2.0 Neut % (Auto) 64.8 Lymph % (Auto) 9.8 Jones % (Auto) 23.0 Eos % (Auto) 0.2 Baso % (Auto) 0.2 Neut # (Auto) 26.39 H Lymph # (Auto) 4.01 H Jones # (Auto) 9.40 H Eos # (Auto) 0.08 Baso # (Auto) 0.10 Immature Gran # (Auto) 0.82 H Platelet Estimate Echinocytes 2+ Acanthocytes (Spur) 1+ PT INR Sodium 133 L Potassium 4.0 Chloride 100 Carbon Dioxide 27 Anion Gap 6 BUN 22 Creatinine 0.77 Est Cr Clr Drug Dosing 111.4 Est GFR ( Amer) 102.9 Est GFR (Non-Af Amer) 88.8 BUN/Creatinine Ratio 28.6 H Glucose 108 H POC Glucose Estimat Average Glucose Hemoglobin A1c Lactate 1.4 Calcium 8.8 Magnesium 2.5 H Total Bilirubin 1.7 H Direct Bilirubin 0.4 H AST 16 ALT 36 Alkaline Phosphatase 56 Troponin I High Sens 13.4 B-Natriuretic Peptide Total Protein 6.6 Albumin 3.6 Procalcitonin Urine Color Urine Appearance Urine pH Ur Specific Phillips Urine Protein Urine Glucose (UA) Urine Ketones Urine Blood Urine Nitrite Urine Bilirubin Urine Urobilinogen Ur Leukocyte Esterase Urine WBC (Auto) Urine RBC (Auto) U Hyaline Cast (Auto) U Epithel Cells (Auto) Urine Bacteria (Auto) Levetiracetam SARS-CoV-2, RNA, NAAT 05/15/22 05/15/22 05/15/22 18:15 18:15 18:15 WBC RBC Hgb Hct MCV MCH MCHC RDW Std Deviation RDW Coeff of Ton Plt Count MPV Immature Gran % (Auto) Neut % (Auto) Lymph % (Auto) Jones % (Auto) Eos % (Auto) Baso % (Auto) Neut # (Auto) Lymph # (Auto) Jones # (Auto) Eos # (Auto) Baso # (Auto) Immature Gran # (Auto) Platelet Estimate Echinocytes Acanthocytes (Spur) PT 24.0 H INR 2.4 H Sodium Potassium Chloride Carbon Dioxide Anion Gap BUN Creatinine Est Cr Clr Drug Dosing Est GFR ( Amer) Est GFR (Non-Af Amer) BUN/Creatinine Ratio Glucose POC Glucose Estimat Average Glucose Hemoglobin A1c Lactate Calcium Magnesium Total Bilirubin Direct Bilirubin AST ALT Alkaline Phosphatase Troponin I High Sens B-Natriuretic Peptide Total Protein Albumin Procalcitonin 0.17 Urine Color Urine Appearance Urine pH Ur Specific Phillips Urine Protein Urine Glucose (UA) Urine Ketones Urine Blood Urine Nitrite Urine Bilirubin Urine Urobilinogen Ur Leukocyte Esterase Urine WBC (Auto) Urine RBC (Auto) U Hyaline Cast (Auto) U Epithel Cells (Auto) Urine Bacteria (Auto) Levetiracetam SARS-CoV-2, RNA, NAAT NEGATIVE 05/15/22 05/15/22 05/15/22 18:15 19:18 22:23 WBC RBC Hgb Hct MCV MCH MCHC RDW Std Deviation RDW Coeff of Ton Plt Count MPV Immature Gran % (Auto) Neut % (Auto) Lymph % (Auto) Jones % (Auto) Eos % (Auto) Baso % (Auto) Neut # (Auto) Lymph # (Auto) Jones # (Auto) Eos # (Auto) Baso # (Auto) Immature Gran # (Auto) Platelet Estimate Echinocytes Acanthocytes (Spur) PT INR Sodium Potassium Chloride Carbon Dioxide Anion Gap BUN Creatinine Est Cr Clr Drug Dosing Est GFR ( Amer) Est GFR (Non-Af Amer) BUN/Creatinine Ratio Glucose POC Glucose 123 H Estimat Average Glucose Hemoglobin A1c Lactate Calcium Magnesium Total Bilirubin Direct Bilirubin AST ALT Alkaline Phosphatase Troponin I High Sens B-Natriuretic Peptide 163 H Total Protein Albumin Procalcitonin Urine Color Yellow Urine Appearance Cloudy A Urine pH 5.0 Ur Specific Phillips 1.024 Urine Protein Trace H Urine Glucose (UA) 3+ H Urine Ketones Negative Urine Blood Trace H Urine Nitrite Positive A Urine Bilirubin Negative Urine Urobilinogen Negative Ur Leukocyte Esterase Trace H Urine WBC (Auto) 10-30 H Urine RBC (Auto) 0-4 U Hyaline Cast (Auto) 1-5 U Epithel Cells (Auto) 0-5 Urine Bacteria (Auto) 4+ H Levetiracetam SARS-CoV-2, RNA, NAAT 05/16/22 05/16/22 05/16/22 05:14 05:14 05:14 WBC 26.79 H RBC 5.19 Hgb 15.9 Hct 47.4 MCV 91.3 MCH 30.6 MCHC 33.5 RDW Std Deviation 47.9 H RDW Coeff of Ton 14.3 Plt Count 127 L MPV 11.2 Immature Gran % (Auto) 2.1 Neut % (Auto) 67.2 Lymph % (Auto) 11.7 Jones % (Auto) 18.0 Eos % (Auto) 0.7 Baso % (Auto) 0.3 Neut # (Auto) 18.01 H Lymph # (Auto) 3.14 Jones # (Auto) 4.82 H Eos # (Auto) 0.20 Baso # (Auto) 0.07 Immature Gran # (Auto) 0.55 H Platelet Estimate Decreased L Echinocytes Acanthocytes (Spur) PT 21.9 H INR 2.1 H Sodium 135 L Potassium 3.7 Chloride 99 Carbon Dioxide 31 Anion Gap 5 BUN 23 Creatinine 0.77 Est Cr Clr Drug Dosing 109.5 Est GFR ( Amer) 102.9 Est GFR (Non-Af Amer) 88.8 BUN/Creatinine Ratio 29.9 H Glucose 106 H POC Glucose Estimat Average Glucose Hemoglobin A1c Lactate Calcium 8.6 Magnesium 2.5 H Total Bilirubin Direct Bilirubin AST ALT Alkaline Phosphatase Troponin I High Sens 17.0 B-Natriuretic Peptide Total Protein Albumin Procalcitonin Urine Color Urine Appearance Urine pH Ur Specific Phillips Urine Protein Urine Glucose (UA) Urine Ketones Urine Blood Urine Nitrite Urine Bilirubin Urine Urobilinogen Ur Leukocyte Esterase Urine WBC (Auto) Urine RBC (Auto) U Hyaline Cast (Auto) U Epithel Cells (Auto) Urine Bacteria (Auto) Levetiracetam SARS-CoV-2, RNA, NAAT 05/16/22 05/16/22 05/16/22 05:14 07:08 09:26 WBC RBC Hgb Hct MCV MCH MCHC RDW Std Deviation RDW Coeff of Ton Plt Count MPV Immature Gran % (Auto) Neut % (Auto) Lymph % (Auto) Jones % (Auto) Eos % (Auto) Baso % (Auto) Neut # (Auto) Lymph # (Auto) Jones # (Auto) Eos # (Auto) Baso # (Auto) Immature Gran # (Auto) Platelet Estimate Echinocytes Acanthocytes (Spur) PT INR Sodium Potassium Chloride Carbon Dioxide Anion Gap BUN Creatinine Est Cr Clr Drug Dosing Est GFR ( Amer) Est GFR (Non-Af Amer) BUN/Creatinine Ratio Glucose POC Glucose 108 H Estimat Average Glucose Pending Hemoglobin A1c Pending Lactate Calcium Magnesium Total Bilirubin Direct Bilirubin AST ALT Alkaline Phosphatase Troponin I High Sens B-Natriuretic Peptide Total Protein Albumin Procalcitonin Urine Color Urine Appearance Urine pH Ur Specific Phillips Urine Protein Urine Glucose (UA) Urine Ketones Urine Blood Urine Nitrite Urine Bilirubin Urine Urobilinogen Ur Leukocyte Esterase Urine WBC (Auto) Urine RBC (Auto) U Hyaline Cast (Auto) U Epithel Cells (Auto) Urine Bacteria (Auto) Levetiracetam Pending SARS-CoV-2, RNA, NAAT Medications Administered Current Inpatient Medications Acetaminophen (Acetaminophen 325 Mg Tab) 650 mg PO Q4H PRN PRN Reason: Pain or Fever Stop: 06/14/22 22:17 Albuterol (Albuterol Hfa 8 Gm Inhaler) 2 puffs INH Q4 PRN PRN Reason: Shortness Of Breath Stop: 06/14/22 22:17 Amlodipine Besylate (Amlodipine Besylate 5 Mg Tab) 2.5 mg PO QAM [facility] Stop: 06/15/22 08:59 Last Admin: 05/16/22 08:21 Dose: 2.5 mg Aspirin (Aspirin 81 Mg Ectab) 81 mg PO QAM [facility] Stop: 06/15/22 08:59 Last Admin: 05/16/22 08:21 Dose: 81 mg Atenolol (Atenolol 25 Mg Tablet) 25 mg PO DAILY [facility] Stop: 06/15/22 08:59 Last Admin: 05/16/22 08:21 Dose: 25 mg Atorvastatin Calcium (Atorvastatin 40 Mg Tab) 80 mg PO PM [facility] Stop: 06/14/22 22:17 Last Admin: 05/15/22 23:41 Dose: 80 mg Brimonidine Tartrate (Brimonidine Tartrate 0.2% 5ml) 1 drops OP BID [facility] Stop: 06/14/22 22:17 Last Admin: 05/16/22 08:22 Dose: 1 drops Fluticasone/Vilanterol (Fluticasone/Vilanterol 200/25mcg 14 Puffs/Inhaler) 1 puffs INH DAILY [facility] Stop: 06/15/22 08:59 Last Admin: 05/16/22 08:21 Dose: 1 puffs Furosemide (Furosemide 40 Mg/4 Ml Vial) 40 mg IV DAILY [facility] Stop: 06/15/22 08:59 Last Admin: 05/16/22 08:22 Dose: 40 mg Ceftriaxone Sodium 2,000 mg/ (Dextrose) 70 mls @ 100 mls/hr IV Q24H [facility]; Protocol Stop: 05/26/22 18:59 Insulin Aspart (Insulin Aspart Per Unit) 0 units SC ACHS [facility] Stop: 06/14/22 22:17 Last Admin: 05/16/22 08:20 Dose: Not Given Isosorbide Mononitrate (Isosorbide Jones Extended Rel 30 Mg Tabcr) 30 mg PO QAM [facility] Stop: 06/15/22 08:59 Last Admin: 05/16/22 08:21 Dose: 30 mg Lamotrigine (Lamotrigine 100 Mg Tab) 100 mg PO BID [facility] Stop: 06/14/22 22:17 Last Admin: 05/16/22 08:22 Dose: 100 mg Latanoprost (Latanoprost 0.005% Op Soln 2.5 Ml Btl) 1 drops OP HS [facility] Stop: 06/14/22 22:17 Last Admin: 05/15/22 23:42 Dose: 1 drops Levetiracetam (Levetiracetam 500 Mg Tab) 2,000 mg PO BID [facility] Stop: 06/14/22 22:17 Last Admin: 05/16/22 08:22 Dose: 2,000 mg Losartan Potassium (Losartan Potassium 25 Mg Tab) 25 mg PO QAM [facility] Stop: 06/15/22 08:59 Last Admin: 05/16/22 08:22 Dose: 25 mg Multi-Ingredient Cream (Artificial Tears Op Oint 3.5 Gm Tube) 1 appln OP Q4 PRN PRN Reason: Dry Eye(S) Stop: 06/14/22 22:17 Nitroglycerin (Nitroglycerin Sl 0.4 Mg/Tab Tab) 0.4 mg SL UD PRN PRN Reason: Chest Pain Stop: 06/14/22 22:17 Pantoprazole Sodium (Pantoprazole 40 Mg Tab) 40 mg PO DAILY [facility] Stop: 06/15/22 08:59 Last Admin: 05/16/22 08:22 Dose: 40 mg Polyethylene Glycol (Polyethylene (Miralax) 17 Gm Pack) 17 gm PO DAILY PRN PRN Reason: Constipation Stop: 06/14/22 22:17 Potassium Chloride (Potassium Chloride 10 Meq Tabcr) 10 meq PO [id number]@0900 [facility] Stop: 06/15/22 08:59 Last Admin: 05/16/22 08:22 Dose: 10 meq Potassium Chloride (Potassium Chloride Crtab 20 Meq Tabcr) 20 meq PO MoWeFr@0900 [facility] Stop: 06/16/22 08:59 Vitamin D (Cholecalciferol 1,000 Units 25 Mcg Tab) 1,000 units PO DAILY [facility] Stop: 06/15/22 08:59 Last Admin: 05/16/22 08:21 Dose: 1,000 units Warfarin Sodium (Warfarin Sod 5 Mg Tab) 5 mg PO [id number]@1600 [facility] Stop: 06/15/22 15:59 Warfarin Sodium (Warfarin Sod 7.5 Mg Tab) 7.5 mg PO TuSa@1600 [facility] Stop: 06/14/22 22:59 Last Admin: 05/15/22 23:38 Dose: 7.5 mg
--- NOTE | 2022-05-16 11:17 | Electrocardiogram Report ---
Test Reason : Blood Pressure : / mmHG Vent. Rate : 066 BPM Atrial Rate : 050 BPM P-R Int : 000 ms QRS Dur : 112 ms QT Int : 416 ms P-R-T Axes : 000 -49 000 degrees QTc Int : 436 ms Atrial fibrillation Left axis deviation Non-specific intra-ventricular conduction delay Abnormal ECG When compared with ECG of 26-FEB-2016 07:07, No significant change Confirmed by Clarke Flowers ([id number]) on 05/16/2022 11:17:28 AM Referred By: REFERRED SELF Confirmed By:Clarke Flowers
--- NOTE | 2022-05-16 14:47 | Hospitalist Progress Note ---
Date of Service May 16, 2022 Assessment & Plan (1) CHF (congestive heart failure): Plan: - acute on chronic exacerbation of HFpEF - received IV Lasix overnight with improvement - Cardiology consulted - continue IV Lasix daily for now - continue home medications - on baseline home O2 at 2L NC - telemetry monitoring (2) Acute UTI (urinary tract infection): Plan: - positive UA and GNR in urine culture and symptomatic with dysuria and leukocytosis - patient reports improvement in symptoms with abx - will continue ceftriaxone while inpatient - has possible history of ascending aorta so will avoid fluoroquinolones on transition to PO, consider amoxicillin/augmentin - will treat for 7 days (3) PAF (paroxysmal atrial fibrillation): Plan: - rate controlled - continue atenolol - on Coumadin - continue - daily INR while inpatient - goal INR 2-3 - telemetry monitoring (4) GERD (gastroesophageal reflux disease): Plan: - continue PPI (5) Hypertension: Plan: - continue home medications (6) Hyperlipidemia: Plan: - continue statin (7) CAD (coronary artery disease): Plan: - no chest pain, stable - continue BB, Coumadin, aspirin (8) Seizure disorder: Plan: - continue home AEDs Plan DVT ppx: Coumadin Code Status: Full Code Dispo: telemetry [facility] Admission and Anticipated Discharge Date Admission Date: May 15, 2022 Subjective PAtient with DM2, HLD, hypogonadism, chronic hypoxia on home O2 2L NC, pAF, CAD, HTN, GERD, HFpEF, seizure disorder who presented with worsening shortness of breath and fatigue. Found to be in mild CHF exacerbation and UTI, started on IV lasix, abx. Cardiology consulted. Patient improved. Patient denies chest pain, shortness of breath. Feels he is at baseline respiratory status. Denies cough, abdominal pain, dysuria resolved, diarrhea, n/v, fever or chills. Review of Systems Review of Systems: All systems reviewed & are unremarkable except as noted in Subjective Physical Exam Physical Exam: GENERAL: The patient is morbidly obese, not in acute distress. HEENT: Pupils equal, round and reactive to light. Oral mucosa moist. NECK: No JVD. No neck masses. CARDIOVASCULAR: S1 and S2 heard. Regular rate and rhythm. Ejection systolic murmur heard in mitral area. RESPIRATORY SYSTEM: Normal AP diameter. No accessory muscle use. No wheezing or crackles. ABDOMEN: Soft, bowel sounds present, nontender, no distention. CENTRAL NERVOUS SYSTEM: Alert and oriented. No facial droop. Speech is clear. Insight is okay. Obeys simple commands. Moves extremities. EXTREMITIES: No edema, no erythema. Results & Data Results & Data ([facility]) Vital Signs (Past 12 Hours) Vital Signs Temp Pulse Resp BP Pulse Ox O2 Del Method O2 Flow Rate 05/16/22 12:50 Room Air 05/16/22 11:32 36.5 C 61 20 94/56 L 95 Nasal Cannula 2 05/16/22 07:32 36.6 C 75 18 122/82 98 Nasal Cannula 2 05/16/22 02:50 36.3 C L 73 20 130/84 95 Nasal Cannula 2 Diagnostic Findings Laboratory Results WBC 26.79 K/ul (4.8-10.8) H 05/16/22 05:14 RBC 5.19 M/uL (4.63-6.08) 05/16/22 05:14 Hgb 15.9 g/dl (14.0-18.0) 05/16/22 05:14 Hct 47.4 % (40.1-51.0) 05/16/22 05:14 MCV 91.3 fL (80.0-100.0) 05/16/22 05:14 MCH 30.6 pg (25.0-34.0) 05/16/22 05:14 MCHC 33.5 g/dL (32.0-36.0) 05/16/22 05:14 RDW Std Deviation 47.9 fL (36.4-46.3) H 05/16/22 05:14 RDW Coeff of Ton 14.3 % (11.5-14.5) 05/16/22 05:14 Plt Count 127 K/uL (130-400) L 05/16/22 05:14 MPV 11.2 fL (9.4-12.4) 05/16/22 05:14 Immature Gran % (Auto) 2.1 % 05/16/22 05:14 Neut % (Auto) 67.2 % 05/16/22 05:14 Lymph % (Auto) 11.7 % 05/16/22 05:14 Boundary % (Auto) 18.0 % 05/16/22 05:14 Eos % (Auto) 0.7 % 05/16/22 05:14 Baso % (Auto) 0.3 % 05/16/22 05:14 Neut # (Auto) 18.01 K/uL (1.4-6.5) H 05/16/22 05:14 Lymph # (Auto) 3.14 K/uL (1.2-3.4) 05/16/22 05:14 Boundary # (Auto) 4.82 K/uL (0.24-0.82) H 05/16/22 05:14 Eos # (Auto) 0.20 K/uL (0-0.50) 05/16/22 05:14 Baso # (Auto) 0.07 K/uL (0-0.2) 05/16/22 05:14 Immature Gran # (Auto) 0.55 K/uL (0.00-0.02) H 05/16/22 05:14 Platelet Estimate Decreased (Normal) L 05/16/22 05:14 Echinocytes 2+ 05/15/22 18:15 Acanthocytes (Spur) 1+ 05/15/22 18:15 PT 21.9 Seconds (9.0-12.0) H 05/16/22 05:14 INR 2.1 (0.9-1.1) H 05/16/22 05:14 Sodium 135 mmol/L (136-145) L 05/16/22 05:14 Potassium 3.7 mmol/L (3.5-5.1) 05/16/22 05:14 Chloride 99 mmol/L (98-107) 05/16/22 05:14 Carbon Dioxide 31 mmol/L (21-32) 05/16/22 05:14 Anion Gap 5 (3-11) 05/16/22 05:14 BUN 23 mg/dl (6-23) 05/16/22 05:14 Creatinine 0.77 mg/dl (0.6-1.4) 05/16/22 05:14 Est Cr Clr Drug Dosing 109.5 ml/min 05/16/22 05:14 Est GFR ( Amer) 102.9 ml/min 05/16/22 05:14 Est GFR (Non-Af Amer) 88.8 ml/min 05/16/22 05:14 BUN/Creatinine Ratio 29.9 (10-20) H 05/16/22 05:14 Glucose 106 mg/dl (70-99(Fasting)) H 05/16/22 05:14 POC Glucose 112 mg/dl (70-99) H 05/16/22 11:16 Lactate 1.4 mmol/L (0.4-2.0) 05/15/22 18:15 Calcium 8.6 mg/dl (8.5-10.1) 05/16/22 05:14 Magnesium 2.5 mg/dl (1.7-2.4) H 05/16/22 05:14 Total Bilirubin 1.7 mg/dl (0.2-1.0) H 05/15/22 18:15 Direct Bilirubin 0.4 mg/dl (0-0.2) H 05/15/22 18:15 AST 16 U/L (13-39) 05/15/22 18:15 ALT 36 U/L (7-52) 05/15/22 18:15 Alkaline Phosphatase 56 U/L (34-104) 05/15/22 18:15 Troponin I High Sens 17.0 pg/ml (0-20) 05/16/22 05:14 B-Natriuretic Peptide 163 pg/ml (0-100) H 05/15/22 18:15 Total Protein 6.6 gm/dl (6.0-8.3) 05/15/22 18:15 Albumin 3.6 gm/dl (3.4-5.0) 05/15/22 18:15 Procalcitonin 0.17 ng/ml (0-0.5) 05/15/22 18:15 Urine Color Yellow 05/15/22 19:18 Urine Appearance Cloudy (Clear) A 05/15/22 19:18 Urine pH 5.0 (4.5-7.5) 05/15/22 19:18 Ur Specific [place] 1.024 (1.000-1.030) 05/15/22 19:18 Urine Protein Trace (Negative) H 05/15/22 19:18 Urine Glucose (UA) 3+ (Negative) H 05/15/22 19:18 Urine Ketones Negative (Negative) 05/15/22 19:18 Urine Blood Trace (Negative) H 05/15/22 19:18 Urine Nitrite Positive (Negative) A 05/15/22 19:18 Urine Bilirubin Negative (Negative) 05/15/22 19:18 Urine Urobilinogen Negative (Negative) 05/15/22 19:18 Ur Leukocyte Esterase Trace (Negative) H 05/15/22 19:18 Urine WBC (Auto) 10-30 /hpf (0-5) H 05/15/22 19:18 Urine RBC (Auto) 0-4 /hpf (0-4) 05/15/22 19:18 U Hyaline Cast (Auto) 1-5 /lpf (0-5) 05/15/22 19:18 U Epithel Cells (Auto) 0-5 /lpf (0-5) 05/15/22 19:18 Urine Bacteria (Auto) 4+ (Negative) H 05/15/22 19:18 SARS-CoV-2, RNA, NAAT NEGATIVE (NEGATIVE) 05/15/22 18:15 Impressions Chest X-Ray 05/15/22 17:53 XR chest 1V portable HISTORY: Sepsis COMPARISON: Chest 02/23/2016. FINDINGS: No pneumothorax. No pleural effusions. The cardiac silhouette is mildly enlarged. There is perihilar interstitial/vascular thickening suggestive of mild congestive change. A few bibasilar linear densities favor subsegmental atelectasis. IMPRESSION: 1. Cardiomegaly and mild congestive change. 2. A few bibasilar linear densities favor subsegmental atelectasis. ACT 112: Negative or not required by law. Electronically signed by: Panchito Rivas M.D. 05/15/2022 6:24 PM Medications Administered Current Inpatient Medications Acetaminophen (Acetaminophen 325 Mg Tab) 650 mg PO Q4H PRN PRN Reason: Pain or Fever Stop: 06/14/22 22:17 Albuterol (Albuterol Hfa 8 Gm Inhaler) 2 puffs INH Q4 PRN PRN Reason: Shortness Of Breath Stop: 06/14/22 22:17 Amlodipine Besylate (Amlodipine Besylate 5 Mg Tab) 2.5 mg PO QAM [facility] Stop: 06/15/22 08:59 Last Admin: 05/16/22 08:21 Dose: 2.5 mg Aspirin (Aspirin 81 Mg Ectab) 81 mg PO QAM [facility] Stop: 06/15/22 08:59 Last Admin: 05/16/22 08:21 Dose: 81 mg Atenolol (Atenolol 25 Mg Tablet) 25 mg PO DAILY [facility] Stop: 06/15/22 08:59 Last Admin: 05/16/22 08:21 Dose: 25 mg Atorvastatin Calcium (Atorvastatin 40 Mg Tab) 80 mg PO PM [facility] Stop: 06/14/22 22:17 Last Admin: 05/15/22 23:41 Dose: 80 mg Brimonidine Tartrate (Brimonidine Tartrate 0.2% 5ml) 1 drops OP BID [facility] Stop: 06/14/22 22:17 Last Admin: 05/16/22 08:22 Dose: 1 drops Fluticasone/Vilanterol (Fluticasone/Vilanterol 200/25mcg 14 Puffs/Inhaler) 1 puffs INH DAILY [facility] Stop: 06/15/22 08:59 Last Admin: 05/16/22 08:21 Dose: 1 puffs Furosemide (Furosemide 40 Mg/4 Ml Vial) 40 mg IV DAILY [facility] Stop: 06/15/22 08:59 Last Admin: 05/16/22 08:22 Dose: 40 mg Ceftriaxone Sodium 2,000 mg/ (Dextrose) 70 mls @ 100 mls/hr IV Q24H [facility]; Protocol Stop: 05/26/22 18:59 Insulin Aspart (Insulin Aspart Per Unit) 0 units SC ACHS [facility] Stop: 06/14/22 22:17 Last Admin: 05/16/22 12:01 Dose: Not Given Isosorbide Mononitrate (Isosorbide [place] Extended Rel 30 Mg Tabcr) 30 mg PO QAM [facility] Stop: 06/15/22 08:59 Last Admin: 05/16/22 08:21 Dose: 30 mg Lamotrigine (Lamotrigine 100 Mg Tab) 100 mg PO BID [facility] Stop: 06/14/22 22:17 Last Admin: 05/16/22 08:22 Dose: 100 mg Latanoprost (Latanoprost 0.005% Op Soln 2.5 Ml Btl) 1 drops OP HS [facility] Stop: 06/14/22 22:17 Last Admin: 05/15/22 23:42 Dose: 1 drops Levetiracetam (Levetiracetam 500 Mg Tab) 2,000 mg PO BID [facility] Stop: 06/14/22 22:17 Last Admin: 05/16/22 08:22 Dose: 2,000 mg Losartan Potassium (Losartan Potassium 25 Mg Tab) 25 mg PO QAM [facility] Stop: 06/15/22 08:59 Last Admin: 05/16/22 08:22 Dose: 25 mg Multi-Ingredient Cream (Artificial Tears Op Oint 3.5 Gm Tube) 1 appln OP Q4 PRN PRN Reason: Dry Eye(S) Stop: 06/14/22 22:17 Nitroglycerin (Nitroglycerin Sl 0.4 Mg/Tab Tab) 0.4 mg SL UD PRN PRN Reason: Chest Pain Stop: 06/14/22 22:17 Pantoprazole Sodium (Pantoprazole 40 Mg Tab) 40 mg PO DAILY [facility] Stop: 06/15/22 08:59 Last Admin: 05/16/22 08:22 Dose: 40 mg Polyethylene Glycol (Polyethylene (Miralax) 17 Gm Pack) 17 gm PO DAILY PRN PRN Reason: Constipation Stop: 06/14/22 22:17 Potassium Chloride (Potassium Chloride 10 Meq Tabcr) 10 meq PO SuTuThSa@0900 [facility] Stop: 06/15/22 08:59 Last Admin: 05/16/22 08:22 Dose: 10 meq Potassium Chloride (Potassium Chloride Crtab 20 Meq Tabcr) 20 meq PO MoWeFr@0900 [facility] Stop: 06/16/22 08:59 Vitamin D (Cholecalciferol 1,000 Units 25 Mcg Tab) 1,000 units PO DAILY [facility] Stop: 06/15/22 08:59 Last Admin: 05/16/22 08:21 Dose: 1,000 units Warfarin Sodium (Warfarin Sod 5 Mg Tab) 5 mg PO SuMoWeThFr@1600 [facility] Stop: 06/15/22 15:59 Warfarin Sodium (Warfarin Sod 7.5 Mg Tab) 7.5 mg PO TuSa@1600 [facility] Stop: 06/14/22 22:59 Last Admin: 05/15/22 23:38 Dose: 7.5 mg
[2022-05-16] MEDS ORDERED: WARFARIN SOD 5 MG TAB PO SCH (16:00)
[2022-05-16] MEDS ORDERED: cefTRIAXone SODIUM 2,000 MG in DEXTROSE 5% 50 ML IV SCH (19:00)
[2022-05-16] MEDS: ATORVASTATIN 40 MG TAB PO SCH (20:00)
[2022-05-16] MEDS: LATANOPROST 0.005% OP SOLN 2.5 ML BTL OP SCH (20:01)
[2022-05-17 06:34] LABS: Estimated Average Glucose 143 mg/dl; Hemoglobin A1C 6.6 % (4.5-5.6)
[2022-05-17 07:02] LABS: Hematocrit (blood only) 48.8 % (40.1-51.0); Hemoglobin 16.5 g/dl (14.0-18.0); Mean Corpuscular Hemoglobin 30.8 pg (25.0-34.0); Mean Corpuscular Hgb Conc 33.8 g/dL (32.0-36.0); Mean Corpuscular Volume 91.2 fL (80.0-100.0); Mean Platelet Volume 11.1 fL (9.4-12.4); Platelet Count 119 K/uL (130-400); RDW Coefficient of Variation 14.3 % (11.5-14.5); RDW Standard Deviation 47.8 fL (36.4-46.3); Red Blood Count 5.35 M/uL (4.63-6.08)
[2022-05-17 07:04] LABS: INR 2.2 (0.9-1.1); Prothrombin Time 22.3 Seconds (9.0-12.0)
[2022-05-17 07:08] LABS: BUN Creatinine Ratio 31.7 (10-20); Calcium 8.6 mg/dl (8.5-10.1); Creatinine Clr Calc Pharmacy 102.6 ml/min; Est GFR (African American) 100.3 ml/min; Est GFR (Non-African American) 86.5 ml/min; Magnesium 2.5 mg/dl (1.7-2.4); Phosphorus 3.5 mg/dl (2.5-4.9); Potassium 3.8 mmol/L (3.5-5.1)
[2022-05-17] MEDS: INSULIN ASPART PER UNIT SC SCH ×2 (08:17→12:18)
[2022-05-17] MEDS: LOSARTAN POTASSIUM 25 MG TAB PO SCH (08:23)
[2022-05-17] MEDS: levETIRAcetam 500 MG TAB PO SCH (08:23)
[2022-05-17] MEDS: ISOSORBIDE MONO EXTENDED REL 30 MG TABCR PO SCH (08:24)
[2022-05-17] MEDS: lamoTRIgine 100 MG TAB PO SCH (08:24)
[2022-05-17] MEDS: CHOLECALCIFEROL 1,000 UNITS 25 MCG TAB PO SCH (08:24)
[2022-05-17] MEDS: PANTOprazole 40 MG TAB PO SCH (08:25)
[2022-05-17] MEDS: ATENOLOL 25 MG TABLET PO SCH (08:25)
[2022-05-17] MEDS: ASPIRIN 81 MG ECTAB PO SCH (08:25)
[2022-05-17] MEDS: amLODIPine BESYLATE 5 MG TAB PO SCH (08:25)
[2022-05-17] MEDS: FLUTICASONE/VILANTEROL 200/25MCG 14 PUFFS/INHALER INH SCH (08:27)
[2022-05-17] MEDS: FUROSEMIDE 40 MG/4 ML VIAL IV SCH (08:30)
[2022-05-17] MEDS: BRIMONIDINE TARTRATE 0.2% 5ML OP SCH (08:32)
[2022-05-17] MEDS ORDERED: POTASSIUM CHLORIDE CRTAB 20 MEQ TABCR PO SCH (09:00)
--- NOTE | 2022-05-17 09:33 | Cardiology Progress Note ---
Date of Service May 17, 2022 Assessment & Plan (1) Acute UTI (urinary tract infection): (2) CHF (congestive heart failure): (3) PAF (paroxysmal atrial fibrillation): (4) Heart disease: Plan The patient is doing well. He is in a controlled atrial fibrillation. He has a history of PAF and is currently anticoagulated and his heart rates are controlled. I would recommend no additional treatment at this time. The patient can be discharged home from a cardiac standpoint and I will arrange follow-up through our clinic. Admission and Anticipated Discharge Date Admission Date: May 15, 2022 Subjective The patient had an uneventful night. No new cardiac complaints. Review of Systems Review of Systems: Review of Systems: See HPI for pertinent positives. All other 10 point review of systems are negative. Physical Exam Physical Exam: General: no acute distress and stated age Head: normocephalic, no masses, lesions, tenderness or abnormalities Eyes: conjunctiva are pink and non-injected, sclera clear Neck: supple, no adenopathy, no bruits, normal jugular venous pulse, no hepatojugular reflux Chest: normal shape and normal respiratory effort Lungs: clear to auscultation and percussion Cardiac Exam: - irregular rate & rhythm, no murmurs gallops or rubs - normal S1, normal S2 Pulses: 2(+) throughout Abdomen: abdomen soft, non-tender, no abnormal masses and no hepatosplenomegaly Musculoskeletal: no gait disturbance, no joint inflammation, no deforming arthritis Extremities: no edema and no cyanosis Neuro: grossly normal exam Results & Data ([facility]) Vital Signs (Past 12 Hours) Vital Signs Temp Pulse Pulse Resp BP Pulse Ox Pulse Ox 05/17/22 07:20 36.5 C 87 20 161/92 H 99 05/17/22 06:57 63 05/16/22 22:18 92 05/17/22 03:06 36.4 C L 72 18 128/85 94 05/16/22 22:05 62 05/16/22 23:51 36.8 C 61 18 130/88 92 O2 Del Method O2 Del Method O2 Flow Rate O2 Flow Rate 05/17/22 07:20 Nasal Cannula 2 05/17/22 06:57 05/16/22 22:18 Nasal Cannula 2 05/17/22 03:06 Nasal Cannula 05/16/22 22:05 05/16/22 23:51 Nasal Cannula Laboratory Results Laboratory Results - last 24 hr 05/16/22 05/16/22 05/16/22 05:14 11:16 16:17 WBC RBC Hgb Hct MCV MCH MCHC RDW Std Deviation RDW Coeff of Ton Plt Count MPV PT INR Sodium Potassium Chloride Carbon Dioxide Anion Gap BUN Creatinine Est Cr Clr Drug Dosing Est GFR ( Amer) Est GFR (Non-Af Amer) BUN/Creatinine Ratio Glucose POC Glucose 112 H 147 H Estimat Average Glucose 143 Hemoglobin A1c 6.6 H Calcium Phosphorus Magnesium 05/16/22 05/17/22 05/17/22 19:18 06:25 06:25 WBC 18.50 H RBC 5.35 Hgb 16.5 Hct 48.8 MCV 91.2 MCH 30.8 MCHC 33.8 RDW Std Deviation 47.8 H RDW Coeff of Ton 14.3 Plt Count 119 L MPV 11.1 PT 22.3 H INR 2.2 H Sodium Potassium Chloride Carbon Dioxide Anion Gap BUN Creatinine Est Cr Clr Drug Dosing Est GFR ( Amer) Est GFR (Non-Af Amer) BUN/Creatinine Ratio Glucose POC Glucose 127 H Estimat Average Glucose Hemoglobin A1c Calcium Phosphorus Magnesium 05/17/22 05/17/22 06:25 07:09 WBC RBC Hgb Hct MCV MCH MCHC RDW Std Deviation RDW Coeff of Ton Plt Count MPV PT INR Sodium 137 Potassium 3.8 Chloride 101 Carbon Dioxide 33 H Anion Gap 3 BUN 26 H Creatinine 0.82 Est Cr Clr Drug Dosing 102.6 Est GFR ( Amer) 100.3 Est GFR (Non-Af Amer) 86.5 BUN/Creatinine Ratio 31.7 H Glucose 111 H POC Glucose 109 H Estimat Average Glucose Hemoglobin A1c Calcium 8.6 Phosphorus 3.5 Magnesium 2.5 H Medications Administered Current Inpatient Medications Acetaminophen (Acetaminophen 325 Mg Tab) 650 mg PO Q4H PRN PRN Reason: Pain or Fever Stop: 06/14/22 22:17 Albuterol (Albuterol Hfa 8 Gm Inhaler) 2 puffs INH Q4 PRN PRN Reason: Shortness Of Breath Stop: 06/14/22 22:17 Amlodipine Besylate (Amlodipine Besylate 5 Mg Tab) [facility] [place] Stop: 06/15/22 08:59 Last Admin: 05/17/22 08:25 Dose: 2.5 mg Aspirin (Aspirin 81 Mg Ectab) 81 mg PO QAM [facility] Stop: 06/15/22 08:59 Last Admin: 05/17/22 08:25 Dose: 81 mg Atenolol (Atenolol 25 Mg Tablet) 25 mg PO DAILY [facility] Stop: 06/15/22 08:59 Last Admin: 05/17/22 08:25 Dose: 25 mg Atorvastatin Calcium (Atorvastatin 40 Mg Tab) 80 mg PO PM [facility] Stop: 06/14/22 22:17 Last Admin: 05/16/22 20:00 Dose: 80 mg Brimonidine Tartrate (Brimonidine Tartrate 0.2% 5ml) 1 drops OP BID [facility] Stop: 06/14/22 22:17 Last Admin: 05/17/22 08:32 Dose: 1 drops Fluticasone/Vilanterol (Fluticasone/Vilanterol 200/25mcg 14 Puffs/Inhaler) 1 puffs INH DAILY [facility] Stop: 06/15/22 08:59 Last Admin: 05/17/22 08:27 Dose: 1 puffs Furosemide (Furosemide 40 Mg/4 Ml Vial) 40 mg IV DAILY [facility] Stop: 06/15/22 08:59 Last Admin: 05/17/22 08:30 Dose: 40 mg Ceftriaxone Sodium 2,000 mg/ (Dextrose) 70 mls @ 100 mls/hr IV Q24H [facility]; Protocol Stop: 05/26/22 18:59 Last Infusion: 05/16/22 19:32 Dose: Infused Insulin Aspart (Insulin Aspart Per Unit) 0 units SC ACHS [facility] Stop: 06/14/22 22:17 Last Admin: 05/17/22 08:17 Dose: Not Given Isosorbide Mononitrate (Isosorbide [place] Extended Rel 30 Mg Tabcr) 30 mg PO QAM [facility] Stop: 06/15/22 08:59 Last Admin: 05/17/22 08:24 Dose: 30 mg Lamotrigine (Lamotrigine 100 Mg Tab) 100 mg PO BID [facility] Stop: 06/14/22 22:17 Last Admin: 05/17/22 08:24 Dose: 100 mg Latanoprost (Latanoprost 0.005% Op Soln 2.5 Ml Btl) 1 drops OP HS [facility] Stop: 06/14/22 22:17 Last Admin: 05/16/22 20:01 Dose: 1 drops Levetiracetam (Levetiracetam 500 Mg Tab) 2,000 mg PO BID [facility] Stop: 06/14/22 22:17 Last Admin: 05/17/22 08:23 Dose: 2,000 mg Losartan Potassium (Losartan Potassium 25 Mg Tab) 25 mg PO QAM [facility] Stop: 06/15/22 08:59 Last Admin: 05/17/22 08:23 Dose: 25 mg Multi-Ingredient Cream (Artificial Tears Op Oint 3.5 Gm Tube) 1 appln OP Q4 PRN PRN Reason: Dry Eye(S) Stop: 06/14/22 22:17 Nitroglycerin (Nitroglycerin Sl 0.4 Mg/Tab Tab) 0.4 mg SL UD PRN PRN Reason: Chest Pain Stop: 06/14/22 22:17 Pantoprazole Sodium (Pantoprazole 40 Mg Tab) 40 mg PO DAILY [facility] Stop: 06/15/22 08:59 Last Admin: 05/17/22 08:25 Dose: 40 mg Polyethylene Glycol (Polyethylene (Miralax) 17 Gm Pack) 17 gm PO DAILY PRN PRN Reason: Constipation Stop: 06/14/22 22:17 Potassium Chloride (Potassium Chloride 10 Meq Tabcr) 10 meq PO SuTuThSa@0900 [facility] Stop: 06/15/22 08:59 Last Admin: 05/16/22 08:22 Dose: 10 meq Potassium Chloride (Potassium Chloride Crtab 20 Meq Tabcr) 20 meq PO MoWeFr@0900 [facility] Stop: 06/16/22 08:59 Last Admin: 05/17/22 08:23 Dose: 20 meq Vitamin D (Cholecalciferol 1,000 Units 25 Mcg Tab) 1,000 units PO DAILY [facility] Stop: 06/15/22 08:59 Last Admin: 05/17/22 08:24 Dose: 1,000 units Warfarin Sodium (Warfarin Sod 5 Mg Tab) 5 mg PO SuMoWeThFr@1600 [facility] Stop: 06/15/22 15:59 Last Admin: 05/16/22 16:04 Dose: 5 mg Warfarin Sodium (Warfarin Sod 7.5 Mg Tab) 7.5 mg PO TuSa@1600 [facility] Stop: 06/14/22 22:59 Last Admin: 05/15/22 23:38 Dose: 7.5 mg
--- NOTE | 2022-05-17 16:19 | Discharge Summary ---
Date of Service May 17, 2022 Admission HPI Per Admitting Provider This is a 76-year-old male with past medical history significant for type 2 diabetes, hyperlipidemia, male hypogonadism, Rathke's cleft cyst, dyspnea on exertion, nocturnal hypoxemia, paroxysmal atrial fibrillation, ascending aortic enlargement, CAD, hypertension, exercise-induced angina, diverticulosis, morbid obesity, GERD, history of dysphagia, glaucoma, seizure disorder, simple partial; retroperitoneal lymphadenopathy, leukocytosis, history of central sleep apnea, history of ITP, presents with ongoing cough and shortness of breath. Cough has been going on since April and he was initially treated for pneumonia with doxycycline and prednisone. He finished prednisone course 3 days ago, doxycycline 1 week ago. Cough is slightly better.Gets short of breath on exertion. Has orthopnea. He is taking Lasix currently alternative 40 mg and 20 mg. Today he is feeling weak and tired. He is also complaining of burning micturition going on for 1 week out patient lab study, found to have leukocytosis and sent him here. Here, he is saturating okay on 2 liters, hemodynamically stable. His white count is 40,000. His urinalysis is grossly positive. Chest x-ray showed pulmonary congestion. Denies any fever or chills. Denies any headache, no dizziness, no blurred visions, no earache, no runny nose, no sore throat. Has dry cough. No difficulty swallowing. Appetite is okay. No chest pain. No nausea, no vomiting, no abdominal pain. Normal bowel movements. Has burning micturition, increased frequency of micturition. No swelling in the legs. Ambulates with a cane. Admission Exam Per Admitting Provider GENERAL: The patient is morbidly obese, not in acute distress. VITAL SIGNS: Temperature 37.1, pulse 79, respiratory rate 22, blood pressure 126/91, oxygen 93% on 2 liters. HEENT: Pupils equal, round and reactive to light. Oral mucosa moist. NECK: No JVD. No neck masses. CARDIOVASCULAR: S1 and S2 heard. Regular rate and rhythm. Ejection systolic murmur heard in mitral area. RESPIRATORY SYSTEM: Normal AP diameter. No accessory muscle use. No obvious wheezing or crackles. ABDOMEN: Soft, bowel sounds present, nontender, no distention. CENTRAL NERVOUS SYSTEM: Alert and oriented. No facial droop. Speech is clear. Insight is okay. Obeys simple commands. Moves extremities. EXTREMITIES: No edema, no erythema. Principal Diagnosis CHF exacerbation, UTI Discharge Exam GENERAL: The patient is morbidly obese, not in acute distress. HEENT: Pupils equal, round and reactive to light. Oral mucosa moist. NECK: No JVD. No neck masses. CARDIOVASCULAR: S1 and S2 heard. Regular rate and rhythm. Ejection systolic murmur heard in mitral area. RESPIRATORY SYSTEM: Normal AP diameter. No accessory muscle use. No wheezing or crackles. ABDOMEN: Soft, bowel sounds present, nontender, no distention. CENTRAL NERVOUS SYSTEM: Alert and oriented. No facial droop. Speech is clear. Insight is okay. Obeys simple commands. Moves extremities. EXTREMITIES: No edema, no erythema. Discharge Data Allergies Allergy/AdvReac Type Severity Reaction Status Date / Time lisinopril Allergy Mild HIVES Verified 08/02/19 10:23 Consultations 05/15/22 19:32 ED Decision to Admit Stat 05/16/22 08:00 Consult Cardiology Routine Hospital Course (1) CHF (congestive heart failure): - acute on chronic exacerbation of HFpEF - received IV Lasix overnight with improvement - Cardiology consulted - [facility] back to home PO lasix - continue home medications - on baseline home O2 at 2L NC - telemetry monitoring - ok for discharge from cardiology standpoint (2) Acute UTI (urinary tract infection): - positive UA and GNR in urine culture and symptomatic with dysuria and leukocytosis - patient reports improvement in symptoms with abx - will continue ceftriaxone while inpatient - has possible history of ascending aorta so will avoid fluoroquinolones on transition to PO - will treat for 7 days - discharged on cefdinir for total of 7 day course (3) PAF (paroxysmal atrial fibrillation): - rate controlled - continue atenolol - on Coumadin - continue - daily INR while inpatient - goal INR 2-3 - telemetry monitoring (4) GERD (gastroesophageal reflux disease): - continue PPI (5) Hypertension: - continue home medications (6) Hyperlipidemia: - continue statin (7) CAD (coronary artery disease): - no chest pain, stable - continue BB, Coumadin, aspirin (8) Seizure disorder: - continue home AEDs Plan DVT ppx: Coumadin Code Status: Full Code Dispo: telemetry Cezar Collins MD [facility] Medicine Total Time Total Time Spent Total Time Spent (In Minutes): 25 Total Time Includes: Examination of the Patient, Discharge Planning, Medication Reconciliation and Communication With Other Providers Discharge Plan Discharge Items Patient Disposition: Home - Self-Care Reason For Visit: SOB, COUGH Discharge Diagnosis: UTI, CHF Activity: Resume your previous activity Non-emergency contact: Primary Care Provider and Flat Machine Cutter Call non-emergency contact if: you have any medication questions and your symptoms worsen Follow-up/Referrals: Domo Mcfarlane MD [Primary Care Provider] - (Date & Time 05/21/2022 2:20 PM Provider Domo Mcfarlane MD Department Family Medicine [facility] ) Josse Parra, [Flat Machine Cutter] - ( ) Diet: Carb Consistent or DM2 and Heart Healthy Addtl Attending Provider Instructions: You were admitted for exacerbation of your heart failure and responded well to IV lasix. You were also found to have a Urinary tract infection that responded to antibiotics. You will be discharged with 5 more days of antibiotics. You should continue your home medications and follow up with your primary care doctor and Flat Machine Cutter. Pending Studies at Discharge: No Stand-Alone Forms: [facility] [employer], Smoking Cessation Medications and DC Order Prescriptions: New cefdinir 300 mg capsule 300 mg PO BID 10 Days Qty: 10 0RF Continued latanoprost 0.005 % Drops 1 drp OPHTHALMIC (EYE) HS atorvastatin 80 mg Tablet 80 mg PO PM hydrocodone-acetaminophen 5-325 mg Tablet 1 tab PO BID isosorbide mononitrate 30 mg Tablet Extended Release 24 Hr 30 mg PO QAM amlodipine 5 mg Tablet 2.5 mg PO QAM aspirin 81 mg Tablet,Delayed Release (Dr/Ec) 81 mg PO QAM warfarin 5 mg Tablet 5 mg PO USEASDIRECTD Rx Instructions: coumadin 7.5mg po every Tuesday and tuesday and 5mg po all other days. losartan 25 mg Tablet 25 mg PO QAM nitroglycerin 0.4 mg Tablet, Sublingual 0.4 mg sublingual UD PRN (Reason: Angina) Label Comments: Patient states "I've never head to use this yet" levetiracetam 750 mg Tablet 1,500 mg PO BID albuterol sulfate [Ventolin HFA] 90 mcg/actuation Hfa Aerosol Inhaler 2 puff INHALATION Q4 PRN (Reason: Shortness Of Breath) lamotrigine [Lamictal] 100 mg Tablet 100 mg PO BID white petrolatum-mineral oil 83-15 % Ointment 1 applic OPHTHALMIC (EYE) Q4 PRN (Reason: Dry Eye(S)) fluticasone propion-salmeterol 250-50 mcg/dose blister with device 1 inh INHALATION BID atenolol 25 mg Tablet 25 mg PO DAILY levetiracetam 500 mg tablet 500 mg PO BID furosemide 20 mg tablet 20 mg PO USEASDIRECTD potassium chloride 10 mEq tablet,ER particles/crystals 10 meq PO USEASDIRECTD Rx Instructions: two tab on tue, tue and tuesday and one tablet other days. brimonidine 0.2 % Drops 1 drp OPHTHALMIC (EYE) BID Jardiance 10 mg PO DAILY Vitamin D3 25 mcg PO DAILY omeprazole 20 mg PO DAILY Discontinued amoxicillin 500 mg Capsule 2,000 mg PO UD PRN (Reason: prior to dental appointments) Discharge Orders: Discharge Order (Routine); Ordered 05/17/22 Ordered By: Cezar Collins Admission Data Admit Date/Time: 05/15/22 20:42 Attending Provider: Cezar Collins Admit Provider: Raymond Marie Primary Care Provider: Domo Mcfarlane Other Providers: Raymond Marie ; Deejay Gilman ; Edwar Hatfield ; Ian Olmstead ; Myke Medel ; Josse Parra ; Tad Gale ; Iris Velasco ; Natali Lees ; Alexsandra Kohler ; Saw Jaquez Other Interventions: Discharge Summary Assessment (RN) Last Done: 05/17/22 12:09
== END 2022-05-17 13:43 | disposition home or self-care (01) | DRG 291 ==
LOC: ED 17:42 → 2S 20:42

== ENCOUNTER 2023-03-05 05:35 | Inpatient (IN) ==
[2023-03-05 06:09] LABS: Basophils # (auto) 0.12 K/uL (0.00-0.20); Basophils % (auto) 0.9 %; Eosinophils # (auto) 0.19 K/uL (0.00-0.50); Eosinophils % (auto) 1.4 %; Hematocrit (blood only) 48.5 % (42.0-52.0); Hemoglobin 15.8 g/dl (14.0-18.0); Immature Granulocytes # (auto) 0.17 K/uL (0.01-0.20); Immature Granulocytes % (auto) 1.2 %; Lymphocytes # (auto) 2.22 K/uL (1.20-3.40); Mean Corpuscular Hemoglobin 29.8 pg (25.0-34.0); Mean Corpuscular Hgb Conc 32.6 g/dL (32.0-36.0); Mean Corpuscular Volume 91.3 fL (80.0-100.0); Mean Platelet Volume 11.5 fL (9.4-12.4); Monocytes # (auto) 2.05 K/uL (0.11-0.59); Monocytes % (auto) 14.8 %; Neutrophils # (auto) 9.09 K/uL (1.40-6.50); Neutrophils % (auto) 65.7 %; Platelet Count 154 K/uL (130-400); RDW Coefficient of Variation 14.4 % (11.5-14.5); RDW Standard Deviation 48.3 fL (36.4-46.3); Red Blood Count 5.31 M/uL (4.70-6.10); White Blood Count 13.84 K/ul (4.8-10.8)
[2023-03-05 06:19] LABS: Albumin Level 3.8 gm/dl (3.4-5.0); Bilirubin,Total 0.6 mg/dl (0.2-1.0); Calcium 9.5 mg/dl (8.6-10.3); Potassium 4.3 mmol/L (3.5-5.1)
[2023-03-05 06:25] LABS: Albumin Globulin Ratio 1.3 (0.9-2); BUN Creatinine Ratio 31.3 (10-20); Creatinine Clr Calc Pharmacy 129.6 ml/min; Est GFR (African American) 108.2 ml/min; Est GFR (Non-African American) 93.3 ml/min; Total Protein 6.8 gm/dl (6.0-8.3)
[2023-03-05 06:30] LABS: Troponin I High Sensitivity 15.7 pg/ml (0-20)
[2023-03-05] MEDS ORDERED: FUROSEMIDE 40 MG/4 ML VIAL IV ONE (06:50)
[2023-03-05 07:22] LABS: INR 1.5 (0.9-1.1); Partial Thromboplastin Ratio 1.2; Partial Thromboplastin Time 33.5 Seconds (21.0-31.0); Prothrombin Time 16.1 Seconds (9.0-12.0)
--- NOTE | 2023-03-05 09:17 | XRay Report ---
XR chest 1V portable CLINICAL HISTORY: Chest pain, nonspecific TECHNIQUE: Single frontal radiograph of the chest was obtained. Comparison: Comparison is made to chest radiograph 05/15/2022 FINDINGS: No lines and tubes are seen. The cardiomediastinal silhouette is normal. Right lower lung airspace op acity is seen. Small right pleural effusion. IMPRESSION: Small right pleural effusion with underlying airspace opacity which represent atelectasis, pneumonia, and/or aspiration. ACT 112: Negative or not required by law. Electronically signed by: Doug Peralta M.D. 03/05/2023 9:15 AM
[2023-03-05] MEDS ORDERED: HEPARIN SOD (PORCINE) 1000 UNIT/ML IV ONE (09:23)
[2023-03-05] MEDS ORDERED: DEXTROSE 50% 50 ML SYRINGE IV PRN (09:57)
[2023-03-05] MEDS ORDERED: CARBOHYDRATES FOR HYPOGLYCEMIA PO PRN (09:57)
[2023-03-05] MEDS ORDERED: ACETAMINOPHEN 325 MG TAB PO PRN (09:57)
[2023-03-05] MEDS ORDERED: GLUCOSE 40% GEL 15 GM TUBE PO PRN (09:57)
[2023-03-05] MEDS ORDERED: ALUMINUM/MAGNESIUM SUSP 30 ML UDC PO PRN (09:57)
[2023-03-05] MEDS ORDERED: NITROGLYCERIN SL 0.4 MG/TAB TAB SL PRN (09:57)
[2023-03-05] MEDS ORDERED: MAGNESIUM HYDROXIDE SUSP 30 ML UDC PO PRN (09:57)
[2023-03-05] MEDS ORDERED: GLUCAGON FOR INJ 1 MG VIAL SQ PRN (09:57)
[2023-03-05] MEDS ORDERED: GLUCOSE 10 TAB/TUBE PO PRN (09:57)
[2023-03-05] MEDS ORDERED: Heparin IV Adult Wt-Based Low-Dose WITH Bolus Protocol IV SCH (10:07)
[2023-03-05] MEDS: HEPARIN SODIUM/DEXTROSE 25,000 UNITS/500 ML BAG IV SCH (10:09)
--- NOTE | 2023-03-05 10:24 | History & Physical Report ---
Date of Service March 05, 2023 Assessment & Plan (1) Acute chest pain: Plan Chest pain, rule out ACS History of paroxysmal A-fib, on Coumadin History of CAD, status post stents. Presents with chest tightness on and off, found to have uptrending troponin. EKG with no acute ST or T changes. INR subtherapeutic at presentation. Trend troponin, EKG with chest pain and daily. Uptrending troponin, hence heparin drip started, cardiology consult. Telemetry monitoring. Nitroglycerin sublingual as needed. Patient already took his a.m. medications. Continue home medications as able. H/o GERD: w/ do PPI BID for now, takes omeprazole daily at home. History of seizure: Patient takes Keppra 2000 mg twice daily and Lamictal 100 mg twice daily, continue same. Patient already took his a.m. medication. Leukocytosis: History of, patient with no febrile illness lately, monitor. Other chronic medical conditions: Continue with/resume home meds as and when able. History of Present Illness Chief Complaint: Chest tightness Primary Care Provider: Domo Mcfarlane MD 77-year-old male with PMH of T2DM, MORALES/nocturnal hypoxemia on 2 L oxygen at home with sleep, HLD, paroxysmal A-fib on Coumadin [5 mg tablet 1.5 tab on , 1 tablet daily rest of the days], chronic diastolic CHF, HTN, CAD status post stent, actinic keratosis, seizure disorder on Keppra and Lamictal, leukocytosis, thrombocytopenia presented to the ED 03/05 with complaint of chest tightness. Patient reports having pizza last night and then going to bed. He started having chest tightness on and off throughout the night. He took 3 Tums with no relief. He also took 3 nitroglycerin sprays (each 5 min apart) with no relief. At 3:30 AM in the morning, he took all his morning medications, still did not feel any better. Then he called the ambulance and got to the hospital. He describes chest tightness being worse at 8/10, radiating to his left shoulder, associated with some sweating, denies any nausea or palpitation. Patient does have a history of CAD status post stents. Patient denies any headache or dizziness, reports chronic dry cough for more than 6 months, denies palpitation/belly pain/acute changes in bowel or bladder habit. Patient reports his appetite has been at his baseline. Denies any febrile illness lately. Patient is still complaining of occasional chest tightness, his troponin has been uptrending, EKG without acute ST or T changes, will get EKG with chest tightness/pain, will trend troponin, consult cardiology. Patient denies using tobacco [smoking/chewing], drinks alcohol very occasionally, denies use of recreational drugs. CODE STATUS: DNR/DNI as per my discussion with the patient. Medications were reviewed with the patient. Plan of care discussed with the patient and he voiced understanding. Allergies Allergy/AdvReac Type Severity Reaction Status Date / Time lisinopril Allergy Intermediate HIVES Verified 12/07/22 13:02 Home Medications Medication Instructions Recorded Confirmed Type albuterol sulfate 90 mcg/actuation 2 puff inhalation Q4 PRN Shortness 06/18/19 03/05/23 History aerosol inhaler (Ventolin HFA) Of Breath amlodipine 5 mg tablet 2.5 mg PO QAM 06/18/19 03/05/23 History aspirin 81 mg tablet,delayed 81 mg PO QAM 06/18/19 03/05/23 History release atorvastatin 80 mg tablet 80 mg PO PM 06/18/19 03/05/23 History hydrocodone 5 mg-acetaminophen 325 1 tab PO Q6 PRN Pain 06/18/19 03/05/23 History mg tablet isosorbide mononitrate 30 mg 30 mg PO QAM 06/18/19 03/05/23 History tablet,extended release 24 hr lamotrigine 100 mg tablet 100 mg PO BID 06/18/19 03/05/23 History (Lamictal) latanoprost 0.005 % eye drops 1 drp ophthalmic (eye) HS 06/18/19 03/05/23 History levetiracetam 750 mg tablet 1,500 mg PO BID 06/18/19 03/05/23 History losartan 25 mg tablet 25 mg PO QAM 06/18/19 03/05/23 History nitroglycerin 0.4 mg sublingual 0.4 mg sublingual UD PRN Angina 06/18/19 03/05/23 History tablet warfarin 5 mg tablet 5 mg PO USEASDIRECTD 06/18/19 03/05/23 History white petrolatum-mineral oil 83 1 applic ophthalmic (eye) Q4 PRN 06/18/19 03/05/23 History %-15 % eye ointment Dry Eye(S) atenolol 25 mg tablet 12.5 mg PO QAM 05/15/22 03/05/23 History brimonidine 0.2 % eye drops 1 drp ophthalmic (eye) BID 05/15/22 03/05/23 History fluticasone 250 mcg-salmeterol 50 1 inh inhalation BID 05/15/22 03/05/23 History mcg/dose blistr powdr for inhalation furosemide 20 mg tablet 20 mg PO DAILY 05/15/22 03/05/23 History levetiracetam 500 mg tablet 500 mg PO BID 05/15/22 03/05/23 History amoxicillin 500 mg capsule 2,000 mg PO UD PRN prior to dental 12/07/22 03/05/23 History procedures cholecalciferol (vitamin D3) 25 25 mcg PO QAM 12/07/22 03/05/23 History mcg (1,000 unit) tablet (Vitamin D3) empagliflozin 10 mg tablet 10 mg PO QAM 12/07/22 03/05/23 History (Jardiance) omeprazole 20 mg tablet,delayed 20 mg PO QAM 12/07/22 03/05/23 History release spironolactone 25 mg tablet 12.5 mg PO QAM 12/07/22 03/05/23 History Past Med/Surg History Medical History 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 Escobar--on keppra/lamictal Sleep apnea 2L oxygen via N/C Tremor of right hand Surgical History History of arthroscopy of right knee History of cardiac cath x2---1 prior to 2005 ([place]) and then 2005 (@ [facility] [place]) History of colonoscopy with polypectomy History of excision of pilonidal cyst History of heart artery stent x2--last 2005 per pt 2 stents total History of tonsillectomy History of tooth extraction all upper teeth History of wisdom tooth extraction Family History Sister Family history of diabetes mellitus Sister Family history of diabetes mellitus Brother Family history of esophageal cancer Other No family history of adverse response to anesthesia Social History Smoking Status: Never smoker Second Hand Exposure: No; Do You Dip or Chew Tobacco: No; Hx Alcohol Use: Yes ("once a year has a whiskey sour for his birthday") Alcohol type: hard liquor Hx Substance Use: No Preferred Language: Kazakh Communication Ability: Effective Sys Dir Required: No Beliefs That Will Affect Care: None marital status: Current Living Situation: Spouse How many Children do You have: 2 Feels Safe at Home: Yes Assistive Devices: Cane, Denture - Upper, Glasses and Oxygen - at Night Review of Systems Review of Systems: Negative otherwise mentioned in HPI. Physical Exam Physical Exam: GENERAL: Alert and oriented x3. NAD, on RA. Obese class II. HEENT: No pallor, no icterus. Pupils equal, round and reactive to light. Oral mucosa moist. NECK: No JVD, no neck masses. HEART: S1 and S2 heard. irregular rate and rhythm. No murmur, no gallop. RESPIRATORY SYSTEM: Normal AP diameter. No accessory muscle use. No wheezing, no crackles. ABDOMEN: Soft, bowel sounds present, nontender, no distention. CENTRAL NERVOUS SYSTEM: No facial droop. Speech is clear. Obeys simple co mmands. Moves extremities. EXTREMITIES: Trace edema, no erythema seen. Results & Data Results & Data Vital Signs (Past 12 Hours) Vital Signs Temp Pulse Pulse Resp BP BP Pulse Ox 03/05/23 09:00 52 L 18 138/98 95 03/05/23 07:00 55 L 19 120/68 97 03/05/23 06:00 52 L 03/05/23 05:43 50 L 20 96 03/05/23 05:40 36.4 C L 42 L 16 121/80 92 O2 Del Method O2 Flow Rate 03/05/23 09:00 Room Air 03/05/23 07:00 Room Air 03/05/23 06:00 03/05/23 05:43 Nasal Cannula 3 03/05/23 05:40 Nasal Cannula 3
[2023-03-05] MEDS ORDERED: ALBUTEROL HFA 8 GM INHALER INH PRN (13:05)
[2023-03-05] MEDS ORDERED: ARTIFICIAL TEARS OP PRN (13:12)
--- NOTE | 2023-03-05 13:13 | Emergency Department Note ---
Impression & Plan ACS (acute coronary syndrome), Bradycardia ED Provider Note CHIEF COMPLAINT: Chest pain HISTORY OF PRESENT ILLNESS: This 77-year-old patient with past medical history of prediabetes, atrial fibrillation, CAD status post stents, GERD, hypertension, hyperlipidemia, sleep apnea, morbid obesity, absence seizure presents to the emergency department with complaints of substernal chest discomfort. 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 He tried to wait it out but the pain returned. Patient states his pulse is always low. He does follow with cardiology. The doses of his medications have not changed recently, he states he is on 12.5 mg of atenolol. Patient denies any syncope or near syncope. He has been more winded recently with exertion but otherwise has been feeling well. REVIEW OF SYSTEMS: A review of systems was performed with positives and pertinent negatives listed in the history of present illness. 10 systems were reviewed and are otherwise negative. ALLERGIES: see below MEDICATIONS: see below PMH: see below SOCIAL HISTORY: see below DDx: Congestive heart failure, ACS, pneumonia, viral etiology, PE, pleural effusion among others. PHYSICAL EXAM: Vital signs reviewed. General: Chronically ill-appearing 77-year-old male, in no significant distress. HEENT: No scleral icterus, PERRLA, neck supple. Atraumatic. Cardiovascular: bradycardic and irregular, no extra sounds Pulmonary: Clear to auscultation bilaterally, normal work of breathing. Abdomen: Soft, obese, nontender, nondistended, positive bowel sounds. Musculoskeletal: Atraumatic, no peripheral edema. Neurologic: Patient awake alert and oriented x 3, speech is clear Skin: Warm, dry, no rash EMERGENCY DEPARTMENT COURSE/MDM: This patient was evaluated and appeared to be in no significant distress. Patient's heart rate is noted to be bradycardic however his family stated this is his baseline. Upon review of our records, does not appear that he is usually this low. IV access had been obtained and laboratory work was drawn. 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 EKG is consistent with atrial fibrillation with slow ventricular response, no ST elevation appreciated. Laboratory work revealed a normal initial troponin with an elevated repeat troponin. IV heparin drip was initiated. The patient and family were informed of the findings and plan for admission and cardiology consultation. Given the patient's strong cardiac history, this would be consistent with his presentation. Case was discussed with the hospitalist service who has agreed to evaluate the patient for admission and further management. MONITORING: An order for cardiac monitoring was placed and the patient is noted to be in a atrial fibrillation with slow ventricular rate at 52 beats per minute. RADIOLOGY: chest x-ray to my interpretation reveals evidence of right lower airspace consolidation. Otherwise defer to radiology. EKG: #1 to my interpretation reveals atrial fibrillation with slow ventricular response at 49 bpm. Left axis deviation and nonspecific ST change. QTc of 386. #2 to my interpretation reveals atrial fibrillation with slow ventricular response of 59 bpm. Left axis deviation, previous septal infarct. When compared to previous same day at 05 40, no significant changes have been found. DISPOSITION: Admission I have personally spent greater than 45 minutes of critical care time in the direct management of this patient. This includes bedside care, interpretation of diagnostic studies, and testing, discussion with consultants, patient, and family members, and other required patient management activities. This 45 minutes is in excess of all separately billable procedures. 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 Escobar--on keppra/lamictal Sleep apnea 2L oxygen via N/C Tremor of right hand Surgical History History of arthroscopy of right knee History of cardiac cath x2---1 prior to 2005 ([facility]) and then 2005 (@ [facility]) History of colonoscopy with polypectomy History of excision of pilonidal cyst History of heart artery stent x2--last 2005 per pt 2 stents total History of tonsillectomy History of tooth extraction all upper teeth History of wisdom tooth extraction Family History Sister Family history of diabetes mellitus Sister Family history of diabetes mellitus Brother Family history of esophageal cancer Other No family history of adverse response to anesthesia Social History Smoking Status: Never smoker Second Hand Exposure: No; Do You Dip or Chew Tobacco: No; Tobacco Cessation Education Requested by Patient: No Hx Alcohol Use: Yes Alcohol type: hard liquor Hx Substance Use: No Preferred Language: Urdu Communication Ability: Effective Beet Flumer Required: No Beliefs That Will Affect Care: None marital status: Current Living Situation: Spouse Current Living Situation Comment: lives with How many Children do You have: 2 Other Information That Helps Us Care for You: No Feels Safe at Home: Yes Safety Concerns: Feels Safe At This Time Assistive Devices: Cane, Denture - Upper, Glasses and Oxygen - at Night Allergies Allergies Allergy/AdvReac Type Severity Reaction Status Date / Time lisinopril Allergy Intermediate HIVES Verified 12/07/22 13:02 Home Meds Home Medications Medication Instructions Recorded Confirmed albuterol sulfate 90 mcg/actuation 2 puff inhalation Q4 PRN Shortness 06/18/19 03/05/23 aerosol inhaler (Ventolin HFA) Of Breath amlodipine 5 mg tablet 2.5 mg PO QAM 06/18/19 03/05/23 aspirin 81 mg tablet,delayed 81 mg PO QAM 06/18/19 03/05/23 release atorvastatin 80 mg tablet 80 mg PO PM 06/18/19 03/05/23 hydrocodone 5 mg-acetaminophen 325 1 tab PO Q6 PRN Pain 06/18/19 03/05/23 mg tablet isosorbide mononitrate 30 mg 30 mg PO QAM 06/18/19 03/05/23 tablet,extended release 24 hr lamotrigine 100 mg tablet 100 mg PO BID 06/18/19 03/05/23 (Lamictal) latanoprost 0.005 % eye drops 1 drp ophthalmic (eye) HS 06/18/19 03/05/23 levetiracetam 750 mg tablet 1,500 mg PO BID 06/18/19 03/05/23 losartan 25 mg tablet 25 mg PO QAM 06/18/19 03/05/23 nitroglycerin 0.4 mg sublingual 0.4 mg sublingual UD PRN Angina 06/18/19 03/05/23 tablet warfarin 5 mg tablet 5 mg PO USEASDIRECTD 06/18/19 03/05/23 white petrolatum-mineral oil 83 1 applic ophthalmic (eye) Q4 PRN 06/18/19 03/05/23 %-15 % eye ointment Dry Eye(S) atenolol 25 mg tablet 12.5 mg PO QAM 05/15/22 03/05/23 brimonidine 0.2 % eye drops 1 drp ophthalmic (eye) BID 05/15/22 03/05/23 fluticasone 250 mcg-salmeterol 50 1 inh inhalation BID 05/15/22 03/05/23 mcg/dose blistr powdr for inhalation furosemide 20 mg tablet 20 mg PO DAILY 05/15/22 03/05/23 levetiracetam 500 mg tablet 500 mg PO BID 05/15/22 03/05/23 amoxicillin 500 mg capsule 2,000 mg PO UD PRN prior to dental 12/07/22 03/05/23 procedures cholecalciferol (vitamin D3) 25 25 mcg PO QAM 12/07/22 03/05/23 mcg (1,000 unit) tablet (Vitamin D3) empagliflozin 10 mg tablet 10 mg PO QAM 12/07/22 03/05/23 (Jardiance) omeprazole 20 mg tablet,delayed 20 mg PO QAM 12/07/22 03/05/23 release spironolactone 25 mg tablet 12.5 mg PO QAM 12/07/22 03/05/23 Results & Data (ED) Vital Signs Vital Signs - 24 hr 03/05/23 05:40 03/05/23 05:40 03/05/23 05:43 Temperature 36.4 C L Temperature Source Oral Pulse Rate 42 L 50 L Pulse Rate [Radial] Pulse Rhythm Irregular Pulse Rhythm [Radial] Respiratory Rate 16 20 Respiratory Effort / Characteristics Non-Labored Spontaneous SOB on Exertion Respiratory Depth Normal Respiratory Pattern Blood Pressure 121/80 Blood Pressure [Right Arm] Blood Pressure Mean 93 Blood Pressure Mean [Right Arm] Pulse Oximetry 92 96 Oxygen Delivery Method Nasal Cannula Nasal Cannula Oxygen Flow Rate 3 3 Sepsis Recent Fever Within 48 Hours No Sepsis New/Unexplained Change in Mental Status No Sepsis Action Taken by Nursing No Action Required 03/05/23 06:00 03/05/23 07:00 03/05/23 09:00 Temperature Temperature Source Pulse Rate 52 L Pulse Rate [Radial] 55 L 52 L Pulse Rhythm Pulse Rhythm [Radial] Irregular Irregular Respiratory Rate 19 18 Respiratory Effort / Characteristics Non-Labored Non-Labored Respiratory Depth Normal Normal Respiratory Pattern Regular Regular Blood Pressure Blood Pressure [Right Arm] 120/68 138/98 Blood Pressure Mean Blood Pressure Mean [Right Arm] 85 111 Pulse Oximetry 97 95 Oxygen Delivery Method Room Air Room Air Oxygen Flow Rate Sepsis Recent Fever Within 48 Hours Sepsis New/Unexplained Change in Mental Status Sepsis Action Taken by Shelter Medications Current Medication List: was personally reviewed by me Laboratory Data Attestation: I reviewed the patient's lab results. 03/05/23 05:45 03/05/23 05:45 Lab Results 03/05/23 03/05/23 03/05/23 Range/Units 05:45 05:45 05:45 WBC 13.84 H (4.8-10.8) K/ul RBC 5.31 (4.70-6.10) M/uL Hgb 15.8 (14.0-18.0) g/dl Hct 48.5 (42.0-52.0) % MCV 91.3 (80.0-100.0) fL MCH 29.8 (25.0-34.0) pg MCHC 32.6 (32.0-36.0) g/dL RDW Std Deviation 48.3 H (36.4-46.3) fL RDW Coeff of Ton 14.4 (11.5-14.5) % Plt Count 154 (130-400) K/uL MPV 11.5 (9.4-12.4) fL Immature Gran % (Auto) 1.2 % Neut % (Auto) 65.7 % Lymph % (Auto) 16.0 % Morrison % (Auto) 14.8 % Eos % (Auto) 1.4 % Baso % (Auto) 0.9 % Neut # (Auto) 9.09 H (1.40-6.50) K/uL Lymph # (Auto) 2.22 (1.20-3.40) K/uL Morrison # (Auto) 2.05 H (0.11-0.59) K/uL Eos # (Auto) 0.19 (0.00-0.50) K/uL Baso # (Auto) 0.12 (0.00-0.20) K/uL Immature Gran # (Auto) 0.17 (0.01-0.20) K/uL PT 16.1 H (9.0-12.0) Seconds INR 1.5 H (0.9-1.1) APTT 33.5 H (21.0-31.0) Seconds PTT Ratio 1.2 Sodium 138 (136-145) mmol/L Potassium 4.3 (3.5-5.1) mmol/L Chloride 104 (98-107) mmol/L Carbon Dioxide 27 (21-32) mmol/L Anion Gap 7 (3-11) BUN 21 (6-23) mg/dl Creatinine 0.67 (0.6-1.4) mg/dl Est Cr Clr Drug Dosing 129.6 ml/min Est GFR ( Amer) 108.2 ml/min Est GFR (Non-Af Amer) 93.3 ml/min BUN/Creatinine Ratio 31.3 H (10-20) Glucose 144 H (70-99(Fasting)) mg/dl Calcium 9.5 (8.6-10.3) mg/dl Total Bilirubin 0.6 (0.2-1.0) mg/dl AST 20 (13-39) U/L ALT 16 (7-52) U/L Alkaline Phosphatase 66 (34-104) U/L Troponin I High Sens 15.7 (0-20) pg/ml Total Protein 6.8 (6.0-8.3) gm/dl Albumin 3.8 (3.4-5.0) gm/dl Globulin 3.0 (2.5-4.0) gm/dl Albumin/Globulin Ratio 1.3 (0.9-2) 03/05/23 Range/Units 07:57 WBC (4.8-10.8) K/ul RBC (4.70-6.10) M/uL Hgb (14.0-18.0) g/dl Hct (42.0-52.0) % MCV (80.0-100.0) fL MCH (25.0-34.0) pg MCHC (32.0-36.0) g/dL RDW Std Deviation (36.4-46.3) fL RDW Coeff of Ton (11.5-14.5) % Plt Count (130-400) K/uL MPV (9.4-12.4) fL Immature Gran % (Auto) % Neut % (Auto) % Lymph % (Auto) % Morrison % (Auto) % Eos % (Auto) % Baso % (Auto) % Neut # (Auto) (1.40-6.50) K/uL Lymph # (Auto) (1.20-3.40) K/uL Morrison # (Auto) (0.11-0.59) K/uL Eos # (Auto) (0.00-0.50) K/uL Baso # (Auto) (0.00-0.20) K/uL Immature Gran # (Auto) (0.01-0.20) K/uL PT (9.0-12.0) Seconds INR (0.9-1.1) APTT (21.0-31.0) Seconds PTT Ratio Sodium (136-145) mmol/L Potassium (3.5-5.1) mmol/L Chloride (98-107) mmol/L Carbon Dioxide (21-32) mmol/L Anion Gap (3-11) BUN (6-23) mg/dl Creatinine (0.6-1.4) mg/dl Est Cr Clr Drug Dosing ml/min Est GFR ( Amer) ml/min Est GFR (Non-Af Amer) ml/min BUN/Creatinine Ratio (10-20) Glucose (70-99(Fasting)) mg/dl Calcium (8.6-10.3) mg/dl Total Bilirubin (0.2-1.0) mg/dl AST (13-39) U/L ALT (7-52) U/L Alkaline Phosphatase (34-104) U/L Troponin I High Sens 70.4 H* D (0-20) pg/ml Total Protein (6.0-8.3) gm/dl Albumin (3.4-5.0) gm/dl Globulin (2.5-4.0) gm/dl Albumin/Globulin Ratio (0.9-2) Administered Medications Discontinued Medications Acetaminophen (Acetaminophen 325 Mg Tab) 650 mg PO Q4H PRN PRN Reason: Pain or Fever Stop: 04/04/23 09:56 Last Admin: 03/05/23 17:49 Dose: 650 mg Documented By: DLF Hydrocodone Bitart/Acetaminophen (Hydrocodone/Acetamophen 5/325mg Tab) 1 tab PO Q6H PRN PRN Reason: Pain Stop: 03/19/23 13:04 Last Admin: 03/07/23 15:36 Dose: 1 tab Documented By: Admin: 03/07/23 09:44 Dose: 1 tab Documented By: Admin: 03/07/23 02:01 Dose: 1 tab Documented By: Admin: 03/06/23 18:48 Dose: 1 tab Documented By: Admin: 03/06/23 10:39 Dose: 1 tab Documented By: Admin: 03/06/23 03:28 Dose: 1 tab Documented By: Admin: 03/05/23 19:56 Dose: 1 tab Documented By: Admin: 03/05/23 14:01 Dose: 1 tab Documented By: FLORESITA Amlodipine Besylate (Amlodipine Besylate 5 Mg Tab) 2.5 mg PO QAM [facility] Stop: 04/05/23 08:59 Last Admin: 03/07/23 08:36 Dose: 2.5 mg Documented By: Admin: 03/06/23 08:13 Dose: 2.5 mg Documented By: FLORESITA Aspirin (Aspirin 81 Mg Ectab) 81 mg PO QAM CRISTIANO Stop: 04/05/23 08:59 Last Admin: 03/07/23 08:38 Dose: 81 mg Documented By: Admin: 03/06/23 08:14 Dose: 81 mg Documented By: FLORESITA Atorvastatin Calcium (Atorvastatin 40 Mg Tab) 80 mg PO PM CRISTIANO Stop: 04/04/23 20:59 Last Admin: 03/06/23 21:05 Dose: 80 mg Documented By: Admin: 03/05/23 19:54 Dose: 80 mg Documented By: TIRSO Brimonidine Tartrate (Brimonidine Tartrate 0.2% 5ml) 1 drops OP BID CRISTIANO Stop: 04/04/23 20:59 Last Admin: 03/07/23 08:39 Dose: 1 drops Documented By: Admin: 03/06/23 21:07 Dose: 1 drops Documented By: Admin: 03/06/23 08:14 Dose: 1 drops Documented By: Admin: 03/05/23 19:55 Dose: 1 drops Documented By: TIRSO Fluticasone/Vilanterol (Fluticasone/Vilanterol 100/25mcg 14 Puffs/Inhaler) 1 puffs INH QPM CRISTIANO; Protocol Stop: 04/04/23 20:59 Last Admin: 03/06/23 21:07 Dose: 1 puffs Documented By: Admin: 03/05/23 19:51 Dose: 1 puffs Documented By: TIRSO Furosemide (Furosemide 40 Mg/4 Ml Vial) 40 mg IV ONE ONE Stop: 03/05/23 06:51 Last Admin: 03/05/23 07:20 Dose: 40 mg Documented By: PEREZ Furosemide (Furosemide Inj 20 Mg/2 Ml Vial) 20 mg IV ONE ONE Stop: 03/06/23 13:24 Last Admin: 03/06/23 13:43 Dose: 20 mg Documented By: FLORESITA Heparin Sodium (Porcine) (Heparin Sod (Porcine) 1000 Unit/Ml) 1 units IV NOW ONE Stop: 03/05/23 09:24 Last Admin: 03/05/23 10:09 Dose: 4,000 units Documented By: PEREZ Co-signed By: MARIANGEL Heparin Sodium/Dextrose (Heparin Sodium/Dextrose) 25,000 units in 500 mls @ 16 mls/hr IV .Q24H CRISTIANO; Protocol Stop: 04/04/23 09:29 Last Admin: 03/07/23 12:04 Dose: 800 units/hr, 16 mls/hr Documented By: FLORESITA Co-signed By: YAMILKA Titration: 03/07/23 12:04 Dose: 800 units/hr, 16 mls/hr Documented By: DLF Co-signed By: YAMILKA Titration: 03/07/23 09:31 Dose: 800 units/hr, 16 mls/hr Documented By: DLF Co-signed By: Titration: 03/07/23 08:27 Dose: 0 units/hr, 0 mls/hr Documented By: DLF Co-signed By: YAMILKA Titration: 03/06/23 19:10 Dose: 1,000 units/hr, 20 mls/hr Documented By: DLF Co-signed By: GENNY Titration: 03/06/23 10:40 Dose: 1,000 units/hr, 20 mls/hr Documented By: DLF Co-signed By: YAMILKA Admin: 03/06/23 10:40 Dose: 1,000 units/hr, 20 mls/hr Documented By: DLF Co-signed By: YAMILKA Titration: 03/06/23 10:40 Dose: 1,000 units/hr, 20 mls/hr Documented By: FLORESITA Co-signed By: YAMILKA Titration: 03/05/23 19:17 Dose: 1,000 units/hr, 20 mls/hr Documented By: FLORESITA Co-signed By: TPB Titration: 03/05/23 18:36 Dose: 1,000 units/hr, 20 mls/hr Documented By: FLORESITA Co-signed By: HM Admin: 03/05/23 10:09 Dose: 1,000 units/hr, 20 mls/hr Documented By: PEREZ Co-signed By: MARIANGEL Insulin Aspart (Insulin Aspart Per Unit Charge) 0 units SC ACHS CRISTIANO Stop: 04/04/23 11:29 Last Admin: 03/07/23 11:29 Dose: Not Given Documented By: Admin: 03/07/23 07:09 Dose: Not Given Documented By: Admin: 03/06/23 21:08 Dose: Not Given Documented By: Admin: 03/06/23 16:32 Dose: Not Given Documented By: Admin: 03/06/23 11:40 Dose: Not Given Documented By: Admin: 03/06/23 07:54 Dose: Not Given Documented By: Admin: 03/05/23 20:44 Dose: Not Given Documented By: Admin: 03/05/23 16:45 Dose: Not Given Documented By: Admin: 03/05/23 13:56 Dose: Not Given Documented By: FLORESITA Insulin Glargine (Lantus Per Unit Charge) 5 units SQ BID CRISTIANO Stop: 04/04/23 20:59 Last Admin: 03/07/23 08:38 Dose: Not Given Documented By: Admin: 03/06/23 21:07 Dose: Not Given Documented By: Admin: 03/06/23 08:15 Dose: Not Given Documented By: Admin: 03/05/23 20:45 Dose: Not Given Documented By: TPB Isosorbide Mononitrate (Isosorbide Morrison Extended Rel 30 Mg Tabcr) 30 mg PO QAM CRISTIANO Stop: 04/05/23 08:59 Last Admin: 03/07/23 08:38 Dose: 30 mg Documented By: Admin: 03/06/23 08:15 Dose: 30 mg Documented By: FLORESITA Lamotrigine (Lamotrigine 100 Mg Tab) 100 mg PO BID CRISTIANO Stop: 04/04/23 20:59 Last Admin: 03/07/23 08:38 Dose: 100 mg Documented By: Admin: 03/06/23 21:05 Dose: 100 mg Documented By: Admin: 03/06/23 08:15 Dose: 100 mg Documented By: Admin: 03/05/23 19:54 Dose: 100 mg Documented By: TPB Latanoprost (Latanoprost 0.005% Op Soln 2.5 Ml Btl) 1 drops OP HS CRISTIANO Stop: 04/04/23 20:59 Last Admin: 03/06/23 21:09 Dose: 1 drops Documented By: Admin: 03/05/23 20:44 Dose: 1 drops Documented By: TPAracleis Levetiracetam (Levetiracetam 500 Mg Tab) 2,000 mg PO BID CRISTIANO Stop: 04/04/23 20:59 Last Admin: 03/07/23 08:37 Dose: 2,000 mg Documented By: Admin: 03/06/23 21:06 Dose: 2,000 mg Documented By: Admin: 03/06/23 08:15 Dose: 2,000 mg Documented By: Admin: 03/05/23 19:54 Dose: 2,000 mg Documented By: TPB Losartan Potassium (Losartan Potassium 25 Mg Tab) 25 mg PO QAM CRISTIANO Stop: 04/05/23 08:59 Last Admin: 03/07/23 08:38 Dose: 25 mg Documented By: Admin: 03/06/23 08:16 Dose: 25 mg Documented By: FLORESITA Melatonin (Melatonin 3 Mg Tab) 3 mg PO HS PRN PRN Reason: Sleep Stop: 04/04/23 23:02 Last Admin: 03/06/23 21:15 Dose: 3 mg Documented By: Admin: 03/05/23 23:56 Dose: 3 mg Documented By: TPB Nitroglycerin (Nitroglycerin Sl 0.4 Mg/Tab Tab) 0.4 mg SL Q5M PRN PRN Reason: Chest Pain Stop: 04/04/23 09:56 Last Admin: 03/07/23 08:25 Dose: 0.4 mg Documented By: ASMITAF Pantoprazole Sodium (Pantoprazole 40 Mg Tab) 40 mg PO BID [facility] Stop: 04/04/23 13:04 Last Admin: 03/07/23 08:38 Dose: 40 mg Documented By: Admin: 03/06/23 21:05 Dose: 40 mg Documented By: Admin: 03/06/23 08:16 Dose: 40 mg Documented By: Admin: 03/05/23 19:52 Dose: 40 mg Documented By: TPAracelis Admin: 03/05/23 14:02 Dose: 40 mg Documented By: DLF Spironolactone (Spironolactone 12.5 Mg Tab) 12.5 mg PO QAM [facility] Stop: 04/05/23 08:59 Last Admin: 03/07/23 08:38 Dose: 12.5 mg Documented By: Admin: 03/06/23 08:16 Dose: 12.5 mg Documented By: FLORESITA Vitamin D (Cholecalciferol 1,000 Units 25 Mcg Tab) [facility] [place] Stop: 04/05/23 08:59 Last Admin: 03/07/23 08:38 Dose: 1,000 units Documented By: Admin: 03/06/23 08:15 Dose: 1,000 units Documented By: FLORESITA Imaging Data Radiologist's Impression: Chest X-Ray 03/05/23 05:43 XR chest 1V portable CLINICAL HISTORY: Chest pain, nonspecific TECHNIQUE: Single frontal radiograph of the chest was obtained. Comparison: Comparison is made to chest radiograph 05/15/2022 FINDINGS: No lines and tubes are seen. The cardiomediastinal silhouette is normal. Right lower lung airspace opacity is seen. Small right pleural effusion. IMPRESSION: Small right pleural effusion with underlying airspace opacity which represent atelectasis, pneumonia, and/or aspiration. ACT 112: Negative or not required by law. Electronically signed by: Doug Peralta M.D. 03/05/2023 9:15 AM Discharge Plan Visit Data Chief Complaint: Chest Pain Stated Complaint: CHEST PAIN ED Provider: Tata Mac Discharge Problem: ACS (acute coronary syndrome), Bradycardia Patient Disposition: Admitted As Inpatient Discharge Instructions Interventions: ED Discharge Assessment Last Done: 03/05/23 12:40
[2023-03-05] MEDS: INSULIN ASPART PER UNIT CHARGE SC SCH ×3 (13:56→20:44)
[2023-03-05] MEDS: HYDROCODONE/ACETAMOPHEN 5/325MG TAB PO PRN ×2 (14:01→19:56)
[2023-03-05] MEDS: PANTOprazole 40 MG TAB PO SCH ×2 (14:02→19:52)
--- NOTE | 2023-03-05 16:06 | Cardiology Consultation ---
Date of Consultation March 05, 2023 Assessment & Plan (1) Acute coronary syndrome: -Patient presents with a non-ST segment elevation acute coronary syndrome. Initial high-sensitivity troponin at 5:45 AM was within normal limits at 15.5 PG per mL, but subsequently climbed to 70.4 PG per mL. INR was 1.5 and therefore Coumadin has been placed on hold in favor of unfractionated heparin. -Bradycardia noted on initial presentation which has improved in the interim. I agree with holding his prior to hospital treatment with atenolol 12.5 mg daily for now. He did have a Zio patch placed in 2020 which revealed predominant rhythm of atrial fibrillation with average rate in the 60s. -Per review of cardiac catheterization report of procedure performed at [facility] [place], PCI, drug-eluting stent to the LAD performed at that time, with noted 70% in-stent restenosis of the mid RCA and chronic occlusion distally. This has been treated medically in the interim. -Advance diet for now. Likely proceed with diagnostic coronary angiography on Tuesday. Continue unfractioned heparin, aspirin, losartan, spironolactone, amlodipine, atorvastatin, Imdur. -An Echocardiogram has been ordered and will be reviewed. History of Present Illness Attending Physician: Arline Nava MD History of Present Illness Myke Fuchs is a 77 year old male seen in cardiology consultation per the request of Dr Nava for the evaluation of chest discomfort. Patient states that he was in his normal state of health until about 9 PM last night when he started experiencing anterior chest pressure that radiated to his shoulders bilaterally while resting in bed. The symptoms persisted until about 3:30 in the morning when he told his about them, and due to ongoing symptoms he ultimately pr esented to the emergency department at 5:40 AM. At the time my assessment in room 203 the patient was comfortable and already on a heparin infusion. His most recent outpatient cardiology follow-up had been last month in February, at which time stable cardiac signs and symptoms were noted. Past Medical and Surgical History: 1.ASCVD 1.Status post December 2005 PCI of the mid RCA, distal RCA occlusion, [place] 2.Angina, similar to his prior angina leading to PCI in 2005, leading to abnormal nuclear stress testing and ultimately January 06, 2017 cardiac catheterization demonstrating a 100% mid-LAD lesion status post PCI with a drug- eluting stent. The RCA was noted to have a mid vessel 70-80% lesion threatening a big RV acute marginal branch and a chronic total occlusion distally. He did not undergo intervention of the mid RCA lesion due to contrast load concerns though the lesion was felt to be easily PCI'd if he has any angina. 2.Aortic root and proximal ascending thoracic aorta enlargement. 3.Valvular heart diease. 4.Atrial fibrillation, paroxysmal, diagnosed in April 2015, now persistent. 5.Chronic coumadin anticoagulation. 6.Central sleep apnea. Unable to tolerate PAP therapy 7.hypoxemia, prescribed supplemental oxygen therapy, 2 L/min QHS 8.Hypertension. 9.Hyperlipidemia. 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 Last seizure was November 2011, none since initiation of Lamictal. Allergies Allergy/AdvReac Type Severity Reaction Status Date / Time lisinopril Allergy Intermediate HIVES Verified 12/07/22 13:02 Home Medications Medication Instructions Recorded Confirmed Type albuterol sulfate 90 mcg/actuation 2 puff inhalation Q4 PRN Shortness 06/18/19 03/05/23 History aerosol inhaler (Ventolin HFA) Of Breath amlodipine 5 mg tablet 2.5 mg PO QAM 06/18/19 03/05/23 History aspirin 81 mg tablet,delayed 81 mg PO QAM 06/18/19 03/05/23 History release atorvastatin 80 mg tablet 80 mg PO PM 06/18/19 03/05/23 History hydrocodone 5 mg-acetaminophen 325 1 tab PO Q6 PRN Pain 06/18/19 03/05/23 History mg tablet isosorbide mononitrate 30 mg 30 mg PO QAM 06/18/19 03/05/23 History tablet,extended release 24 hr lamotrigine 100 mg tablet 100 mg PO BID 06/18/19 03/05/23 History (Lamictal) latanoprost 0.005 % eye drops 1 drp ophthalmic (eye) HS 06/18/19 03/05/23 History levetiracetam 750 mg tablet 1,500 mg PO BID 06/18/19 03/05/23 History losartan 25 mg tablet 25 mg PO QAM 06/18/19 03/05/23 History nitroglycerin 0.4 mg sublingual 0.4 mg sublingual UD PRN Angina 06/18/19 03/05/23 History tablet warfarin 5 mg tablet 5 mg PO USEASDIRECTD 06/18/19 03/05/23 History white petrolatum-mineral oil 83 1 applic ophthalmic (eye) Q4 PRN 06/18/19 03/05/23 History %-15 % eye ointment Dry Eye(S) atenolol 25 mg tablet 12.5 mg PO QAM 05/15/22 03/05/23 History brimonidine 0.2 % eye drops 1 drp ophthalmic (eye) BID 05/15/22 03/05/23 History fluticasone 250 mcg-salmeterol 50 1 inh inhalation BID 05/15/22 03/05/23 History mcg/dose blistr powdr for inhalation furosemide 20 mg tablet 20 mg PO DAILY 05/15/22 03/05/23 History levetiracetam 500 mg tablet 500 mg PO BID 05/15/22 03/05/23 History amoxicillin 500 mg capsule 2,000 mg PO UD PRN prior to dental 12/07/22 03/05/23 History procedures cholecalciferol (vitamin D3) 25 25 mcg PO QAM 12/07/22 03/05/23 History mcg (1,000 unit) tablet (Vitamin D3) empagliflozin 10 mg tablet 10 mg PO QAM 12/07/22 03/05/23 History (Jardiance) omeprazole 20 mg tablet,delayed 20 mg PO QAM 12/07/22 03/05/23 History release spironolactone 25 mg tablet 12.5 mg PO QAM 12/07/22 03/05/23 History Patient History Medical History 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 Escobar--on keppra/lamictal Sleep apnea 2L oxygen via N/C Tremor of right hand Surgical History History of arthroscopy of right knee History of cardiac cath x2---1 prior to 2005 ([place]) and then 2006 (@ [facility]) History of colonoscopy with polypectomy History of excision of pilonidal cyst History of heart artery stent x2--last 2006 per pt 2 stents total History of tonsillectomy History of tooth extraction all upper teeth History of wisdom tooth extraction Family History Sister Family history of diabetes mellitus Sister Family history of diabetes mellitus Brother Family history of esophageal cancer Other No family history of adverse response to anesthesia Social History Smoking Status: Never smoker Second Hand Exposure: No; Do You Dip or Chew Tobacco: No; Tobacco Cessation Education Requested by Patient: No Hx Alcohol Use: Yes Alcohol type: hard liquor Hx Substance Use: No Preferred Language: [place] Leonean Communication Ability: Effective Adjunct Professor Of Voice Required: No Beliefs That Will Affect Care: None marital status: Current Living Situation: Spouse Current Living Situation Comment: lives with How many Children do You have: 2 Other Information That Helps Us Care for You: No Feels Safe at Home: Yes Safety Concerns: Feels Safe At This Time Assistive Devices: Cane, Denture - Upper, Glasses and Oxygen - at Night Review of Systems Review of Systems: All systems reviewed & are unremarkable except as noted in HPI & below Physical Exam Constitutional: WD/WN, vitals as above Respiratory: normal respiratory effort, lungs clear to auscultation Cardiovascular: Rate/Rhythm: + irregularly irregular Heart Sounds: + murmur (2/6 systolic murmur) Extremities: + edema (Trace bilateral lower extremity edema) Gastrointestinal (Abdomen): normal bowel sounds, soft, nontender, no hepatosplenomegaly Neurologic: PERRL, EOMI, accommodation nl, no face palsy, no dysarthria Results & Data Vital Signs (Past 12 Hours) Vital Signs Temp Pulse Pulse Resp BP BP Pulse Ox 03/05/23 15:57 36.6 C 69 18 126/86 94 03/05/23 13:53 61 03/05/23 13:00 36.5 C 62 18 125/87 94 03/05/23 12:40 64 18 156/107 H 95 03/05/23 12:00 61 18 156/107 H 95 03/05/23 10:00 65 15 120/88 95 03/05/23 09:00 52 L 18 138/98 95 03/05/23 07:00 55 L 19 120/68 97 03/05/23 06:00 52 L 03/05/23 05:43 50 L 20 96 03/05/23 05:40 36.4 C L 42 L 16 121/80 92 O2 Del Method O2 Flow Rate 03/05/23 15:57 Room Air 03/05/23 13:53 03/05/23 13:00 03/05/23 12:40 Room Air 03/05/23 12:00 Nasal Cannula 3 03/05/23 10:00 Room Air 03/05/23 09:00 Room Air 03/05/23 07:00 Room Air 03/05/23 06:00 03/05/23 05:43 Nasal Cannula 3 03/05/23 05:40 Nasal Cannula 3 Laboratory Results Cardiac Enzymes 03/05/23 03/05/23 Range/Units 05:45 07:57 AST 20 (13-39) U/L Troponin I High Sens 15.7 70.4 H* D (0-20) pg/ml Coagulation 03/05/23 Range/Units 05:45 PT 16.1 H (9.0-12.0) Seconds APTT 33.5 H (21.0-31.0) Seconds CBC 03/05/23 Range/Units 05:45 WBC 13.84 H (4.8-10.8) K/ul RBC 5.31 (4.70-6.10) M/uL Hgb 15.8 (14.0-18.0) g/dl Hct 48.5 (42.0-52.0) % Plt Count 154 (130-400) K/uL Neut # (Auto) 9.09 H (1.40-6.50) K/uL Lymph # (Auto) 2.22 (1.20-3.40) K/uL [place] # (Auto) 2.05 H (0.11-0.59) K/uL Eos # (Auto) 0.19 (0.00-0.50) K/uL Baso # (Auto) 0.12 (0.00-0.20) K/uL Comprehensive Metabolic Panel 03/05/23 Range/Units 05:45 Sodium 138 (136-145) mmol/L Potassium 4.3 (3.5-5.1) mmol/L Chloride 104 (98-107) mmol/L Carbon Dioxide 27 (21-32) mmol/L BUN 21 (6-23) mg/dl Creatinine 0.67 (0.6-1.4) mg/dl Glucose 144 H (70-99(Fasting)) mg/dl Calcium 9.5 (8.6-10.3) mg/dl AST 20 (13-39) U/L ALT 16 (7-52) U/L Alkaline Phosphatase 66 (34-104) U/L Total Protein 6.8 (6.0-8.3) gm/dl Albumin 3.8 (3.4-5.0) gm/dl Intake and Output 03/05/23 03/05/23 03/05/23 06:59 14:59 22:59 Output Total 1375 / 1375 Balance -1375 / -1375 Output: Urine 1375 / 1375 Other: Other Intake Source NPO Weight 127.9 kg 120 kg Weight Measurement Method Built in [facility] Built in [facility] Patient Weight 03/06/23 06:59 Weight 120 kg Diagnostic Findings EKG performed today 03/05/2023 at 5:40 AM: Atrial fibrillation with slow ventricular sponsor at 49 bpm, nonspecific diffuse T wave flattening Repeat EKG at 7:48 AM today revealed atrial fibrillation at 59 bpm, age- indeterminate septal infarct, ongoing T wave flattening without ST depression or elevation. Most recent outpatient echocardiogram had been on 10/14/2022 LVEF 50 to 59%, moderate left ventricular chamber enlargement, biatrial dilatation, moderate mitral regurgitation
[2023-03-05 17:48] LABS: Partial Thromboplastin Ratio 1.9
[2023-03-05 18:17] LABS: Partial Thromboplastin Time 53.5 Seconds (21.0-31.0)
[2023-03-05] MEDS: FLUTICASONE/VILANTEROL 100/25MCG 14 PUFFS/INHALER INH SCH (19:51)
[2023-03-05] MEDS: lamoTRIgine 100 MG TAB PO SCH (19:54)
[2023-03-05] MEDS: levETIRAcetam 500 MG TAB PO SCH (19:54)
[2023-03-05] MEDS: ATORVASTATIN 40 MG TAB PO SCH (19:54)
[2023-03-05] MEDS: BRIMONIDINE TARTRATE 0.2% 5ML OP SCH (19:55)
[2023-03-05] MEDS: LATANOPROST 0.005% OP SOLN 2.5 ML BTL OP SCH (20:44)
[2023-03-05] MEDS: LANTUS PER UNIT CHARGE SQ SCH (20:45)
[2023-03-05] MEDS ORDERED: levETIRAcetam 500 MG TAB PO SCH (21:00)
[2023-03-05] MEDS: MELATONIN 3 MG TAB PO PRN (23:56)
[2023-03-06 02:10] LABS: Partial Thromboplastin Ratio 1.8
[2023-03-06 02:12] LABS: Partial Thromboplastin Time 51.3 Seconds (21.0-31.0)
[2023-03-06] MEDS: HYDROCODONE/ACETAMOPHEN 5/325MG TAB PO PRN ×3 (03:28→18:48)
[2023-03-06 06:24] LABS: Hematocrit (blood only) 45.8 % (42.0-52.0); Mean Corpuscular Hemoglobin 29.7 pg (25.0-34.0); Mean Corpuscular Hgb Conc 32.8 g/dL (32.0-36.0); Mean Corpuscular Volume 90.7 fL (80.0-100.0); Mean Platelet Volume 11.2 fL (9.4-12.4); Platelet Count 136 K/uL (130-400); RDW Coefficient of Variation 14.6 % (11.5-14.5); RDW Standard Deviation 48.2 fL (36.4-46.3); Red Blood Count 5.05 M/uL (4.70-6.10); White Blood Count 12.98 K/ul (4.8-10.8)
[2023-03-06 07:12] LABS: Albumin Globulin Ratio 1.3 (0.9-2); Albumin Level 3.7 gm/dl (3.4-5.0); BUN Creatinine Ratio 31.4 (10-20); Bilirubin,Total 0.9 mg/dl (0.2-1.0); Calcium 9.1 mg/dl (8.6-10.3); Creatinine Clr Calc Pharmacy 122.4 ml/min; Est GFR (African American) 106.2 ml/min; Est GFR (Non-African American) 91.7 ml/min; Globulin 2.9 gm/dl (2.5-4.0); Magnesium 2.1 mg/dl (1.7-2.4); Phosphorus 4.3 mg/dl (2.5-4.9); Total Protein 6.6 gm/dl (6.0-8.3)
[2023-03-06 07:21] LABS: Troponin I High Sensitivity 4245.2 pg/ml (0-20)
[2023-03-06 07:43] LABS: Partial Thromboplastin Ratio 2.1
[2023-03-06 07:44] LABS: Partial Thromboplastin Time 58.7 Seconds (21.0-31.0)
[2023-03-06] MEDS: INSULIN ASPART PER UNIT CHARGE SC SCH ×4 (07:54→21:08)
[2023-03-06] MEDS: amLODIPine BESYLATE 5 MG TAB PO SCH (08:13)
[2023-03-06] MEDS: BRIMONIDINE TARTRATE 0.2% 5ML OP SCH ×2 (08:14→21:07)
[2023-03-06] MEDS: ASPIRIN 81 MG ECTAB PO SCH (08:14)
[2023-03-06] MEDS: CHOLECALCIFEROL 1,000 UNITS 25 MCG TAB PO SCH (08:15)
[2023-03-06] MEDS: LANTUS PER UNIT CHARGE SQ SCH ×2 (08:15→21:07)
[2023-03-06] MEDS: lamoTRIgine 100 MG TAB PO SCH ×2 (08:15→21:05)
[2023-03-06] MEDS: levETIRAcetam 500 MG TAB PO SCH ×2 (08:15→21:06)
[2023-03-06] MEDS: ISOSORBIDE MONO EXTENDED REL 30 MG TABCR PO SCH (08:15)
[2023-03-06] MEDS: LOSARTAN POTASSIUM 25 MG TAB PO SCH (08:16)
[2023-03-06] MEDS: SPIRONOLACTONE 12.5 MG TAB PO SCH (08:16)
[2023-03-06] MEDS: PANTOprazole 40 MG TAB PO SCH ×2 (08:16→21:05)
[2023-03-06] MEDS: HEPARIN SODIUM/DEXTROSE 25,000 UNITS/500 ML BAG IV SCH (10:40)
--- NOTE | 2023-03-06 11:06 | Hospitalist Progress Note ---
Date of Service March 06, 2023 Assessment & Plan (1) Acute chest pain: Plan NSTEMI History of paroxysmal A-fib, on Coumadin History of CAD,; last cardiac catheterization in 2017 at [facility] [place]; stent placed in LAD with noted 70% in-stent restenosis of mid RCA and a chronic occlusion distally. Presents with chest tightness on and off. EKG on admission personally reviewed; atrial fibrillation with ventricular rate of 49; nonspecific ST segment changes. High sensitive troponin was 15 on admission; up trended to 4953; down trended to 4245 INR subtherapeutic at presentation. Currently on heparin drip for NSTEMI. Continue on aspirin, Lipitor. No beta-arlyn given low heart rate. Also on losartan, spironolactone and Imdur. Telemetry monitoring. Echocardiogram done and pending. Likely to have diagnostic coronary angiogram on Tuesday. H/o GERD: w/ do PPI BID for now, takes omeprazole daily at home. History of seizure: Patient takes Keppra 2000 mg twice daily and Lamictal 100 mg twice daily, continue same Chronic back pain; on hydrocodoneacetaminophen as needed every 6 hours. Leukocytosis: History of, patient with no febrile illness lately, monitor. Other chronic medical conditions: Continue with/resume home meds as and when able. Time spent evaluating patient, direct bedside care, chart review, placing orders, interpretation of diagnostic studies, discussion with consultants, patient, and family members, as well as other required patient management activities is 60 minutes. Please note the above document was generated using voice recognition software. It may contain grammatical, syntax or spelling errors. Any formal questions or concerns about the content, text or information contained within the body of this dictation should be directly addressed to the provider for clarification Admission and Anticipated Discharge Date Admission Date: March 05, 2023 Subjective Patient seen and examined at bedside. He is lying in the bed comfortably; not in distress. He reports resolution of chest pain. Telemetry shows atrial fibrillation with controlled ventricular rate. Review of Systems Review of Systems: All systems reviewed & are unremarkable except as noted in Subjective Physical Exam Physical Exam: GENERAL: Alert and oriented x3. NAD, on RA. Obese class II. HEENT: No pallor, no icterus. Pupils equal, round and reactive to light. Oral mucosa moist. NECK: No JVD, no neck masses. HEART: S1 and S2 heard. irregular rate and rhythm. No murmur, no gallop. RESPIRATORY SYSTEM: Normal AP diameter. No accessory muscle use. No wheezing, no crackles. ABDOMEN: Soft, bowel sounds present, nontender, no distention. CENTRAL NERVOUS SYSTEM: No facial droop. Speech is clear. Obeys simple commands. Moves extremities. EXTREMITIES: Trace edema, no erythema seen. Results & Data Results & Data Vital Signs (Past 12 Hours) Vital Signs Temp Pulse Pulse Resp BP Pulse Ox O2 Del Method 03/06/23 09:00 65 03/06/23 09:00 Nasal Cannula 03/06/23 08:00 36.5 C 53 L 18 123/89 97 Nasal Cannula 03/06/23 03:20 36.6 C 64 18 110/73 94 Nasal Cannula O2 Flow Rate 03/06/23 09:00 03/06/23 09:00 03/06/23 08:00 3 03/06/23 03:20 3 Laboratory Results Laboratory Results WBC 12.98 K/ul (4.8-10.8) H 03/06/23 06:08 RBC 5.05 M/uL (4.70-6.10) 03/06/23 06:08 Hgb 15.0 g/dl (14.0-18.0) 03/06/23 06:08 Hct 45.8 % (42.0-52.0) 03/06/23 06:08 MCV 90.7 fL (80.0-100.0) 03/06/23 06:08 MCH 29.7 pg (25.0-34.0) 03/06/23 06:08 MCHC 32.8 g/dL (32.0-36.0) 03/06/23 06:08 RDW Std Deviation 48.2 fL (36.4-46.3) H 03/06/23 06:08 RDW Coeff of Ton 14.6 % (11.5-14.5) H 03/06/23 06:08 Plt Count 136 K/uL (130-400) 03/06/23 06:08 MPV 11.2 fL (9.4-12.4) 03/06/23 06:08 Immature Gran % (Auto) 1.2 % 03/05/23 05:45 Neut % (Auto) 65.7 % 03/05/23 05:45 Lymph % (Auto) 16.0 % 03/05/23 05:45 [place] % (Auto) 14.8 % 03/05/23 05:45 Eos % (Auto) 1.4 % 03/05/23 05:45 Baso % (Auto) 0.9 % 03/05/23 05:45 Neut # (Auto) 9.09 K/uL (1.40-6.50) H 03/05/23 05:45 Lymph # (Auto) 2.22 K/uL (1.20-3.40) 03/05/23 05:45 [place] # (Auto) 2.05 K/uL (0.11-0.59) H 03/05/23 05:45 Eos # (Auto) 0.19 K/uL (0.00-0.50) 03/05/23 05:45 Baso # (Auto) 0.12 K/uL (0.00-0.20) 03/05/23 05:45 Immature Gran # (Auto) 0.17 K/uL (0.01-0.20) 03/05/23 05:45 PT 16.1 Seconds (9.0-12.0) H 03/05/23 05:45 INR 1.5 (0.9-1.1) H 03/05/23 05:45 APTT 58.7 Seconds (21.0-31.0) H* 03/06/23 06:08 PTT Ratio 2.1 03/06/23 06:08 Sodium 138 mmol/L (136-145) 03/06/23 06:08 Potassium 4.0 mmol/L (3.5-5.1) 03/06/23 06:08 Chloride 102 mmol/L (98-107) 03/06/23 06:08 Carbon Dioxide 31 mmol/L (21-32) 03/06/23 06:08 Anion Gap 5 (3-11) 03/06/23 06:08 BUN 22 mg/dl (6-23) 03/06/23 06:08 Creatinine 0.70 mg/dl (0.6-1.4) 03/06/23 06:08 Est Cr Clr Drug Dosing 122.4 ml/min 03/06/23 06:08 Est GFR ( Amer) 106.2 ml/min 03/06/23 06:08 Est GFR (Non-Af Amer) 91.7 ml/min 03/06/23 06:08 BUN/Creatinine Ratio 31.4 (10-20) H 03/06/23 06:08 Glucose 121 mg/dl (70-99(Fasting)) H 03/06/23 06:08 POC Glucose 119 mg/dl (70-99) H 03/06/23 07:27 Calcium 9.1 mg/dl (8.6-10.3) 03/06/23 06:08 Phosphorus 4.3 mg/dl (2.5-4.9) 03/06/23 06:08 Magnesium 2.1 mg/dl (1.7-2.4) 03/06/23 06:08 Total Bilirubin 0.9 mg/dl (0.2-1.0) 03/06/23 06:08 AST 42 U/L (13-39) H 03/06/23 06:08 ALT 18 U/L (7-52) 03/06/23 06:08 Alkaline Phosphatase 63 U/L (34-104) 03/06/23 06:08 Troponin I High Sens 4245.2 pg/ml (0-20) H* 03/06/23 06:08 Total Protein 6.6 gm/dl (6.0-8.3) 03/06/23 06:08 Albumin 3.7 gm/dl (3.4-5.0) 03/06/23 06:08 Globulin 2.9 gm/dl (2.5-4.0) 03/06/23 06:08 Albumin/Globulin Ratio 1.3 (0.9-2) 03/06/23 06:08 Impressions Chest X-Ray 03/05/23 05:43 XR chest 1V portable CLINICAL HISTORY: Chest pain, nonspecific TECHNIQUE: Single frontal radiograph of the chest was obtained. Comparison: Comparison is made to chest radiograph 05/15/2022 FINDINGS: No lines and tubes are seen. The cardiomediastinal silhouette is normal. Right lower lung airspace opacity is seen. Small right pleural effusion. IMPRESSION: Small right pleural effusion with underlying airspace opacity which represent atelectasis, pneumonia, and/or aspiration. ACT 112: Negative or not required by law. Electronically signed by: Doug Peralta M.D. 03/05/2023 9:15 AM
[2023-03-06] MEDS ORDERED: FUROSEMIDE INJ 20 MG/2 ML VIAL IV ONE (13:23)
--- NOTE | 2023-03-06 13:34 | Cardiology Progress Note ---
Date of Service March 06, 2023 Assessment & Plan (1) NSTEMI (non-ST elevated myocardial infarction): Plan: -Patient's symptoms and high sensitive troponin has trended up and peaked at 4953 pg/ml, consistent with a non-ST segment elevation myocardial infarction. -Patient currently comfortable. Coumadin on hold and heparin drip infusing. -Per review of cardiac catheterization report of procedure performed in [place] at [facility] [place], patient underwent PCI, drug-eluting stent to the mid LAD at that time. A 70% lesion which was an in-stent restenosis of the mid RCA noted at that time with high-grade occlusion of the distal RCA. The RCA lesion has been managed medically in the interim. -Given the technical complexities of his past cardiac catheterization, recommend patient is transferred to tertiary center for complex cardiac catheterization/PCI. Patient agreeable. I discussed his findings and plan with his daughter, Deysi, who is a home health nurse and questions and concerns answered. -Continue aspirin, unfractioned heparin, losartan, aspirin, spironolactone, amlodipine 2.5 mg daily, atorvastatin 80 mg daily, and isosorbide mononitrate. -Given findings of small pleural effusion on chest x-ray, and mild hypoxia, will administer furosemide 20 mg IV x1 now. His oral furosemide has been on hold pending consideration of catheterization. -Future considerations include transitioning him from Coumadin to Eliquis given need for anticoagulation and dual antiplatelet therapy. (2) Permanent atrial fibrillation: Plan: -Coumadin on hold favoring heparin for upcoming cardiac catheterization. Future considerations include transitioning him from Coumadin to Eliquis given need for antiplatelet therapy and anticoagulation. -Patient is not on any AV mellissa arlyn due to borderline bradycardia. Case discussed by telephone with Dr. Adrian Walker who accepts the patient in transfer. We will make arrangements for transfer by [facility] ground pending bed availability. Admission and Anticipated Discharge Date Admission Date: March 05, 2023 Subjective Patient seen in cardiology follow-up. He feels well this morning and was in the bedside chair. He did describe vague mild chest discomfort overnight last night that was short-lived. Telemetry reveals rate controlled atrial fibrillation with rates ranging from 59 to 60s. Review of Systems Review of Systems: All systems reviewed & are unremarkable except as noted in HPI & below Physical Exam Physical Exam: Temp Pulse Resp BP Pulse Ox O2 Del Method O2 Flow Rate 36.5 C 61 20 118/67 92 Nasal Cannula 3 03/06/23 11:24 03/06/23 11:24 03/06/23 11:24 03/06/23 11:24 03/06/23 11:24 03/06/23 11:24 03/06/23 11:24 Constitutional: WD/WN, vitals as above Respiratory: normal respiratory effort, lungs clear to auscultation Cardiovascular: Rate/Rhythm: + irregularly irregular Heart Sounds: + murmur (1/6 systolic murmur) Vessels: no JVD Extremities: no edema Gastrointestinal (Abdomen): normal bowel sounds, soft, nontender, no he patosplenomegaly Neurologic: PERRL, EOMI, accommodation nl, no face palsy, no dysarthria Results & Data Vital Signs (Past 12 Hours) Vital Signs Temp Pulse Pulse Resp BP Pulse Ox O2 Del Method 03/06/23 11:24 36.5 C 61 20 118/67 92 Nasal Cannula 03/06/23 09:00 65 03/06/23 09:00 Nasal Cannula 03/06/23 08:00 36.5 C 53 L 18 123/89 97 Nasal Cannula 03/06/23 03:20 36.6 C 64 18 110/73 94 Nasal Cannula O2 Flow Rate 03/06/23 11:24 3 03/06/23 09:00 03/06/23 09:00 03/06/23 08:00 3 03/06/23 03:20 3 Laboratory Results Cardiac Enzymes 03/05/23 03/05/23 03/06/23 Range/Units 16:24 20:06 06:08 AST 42 H (13-39) U/L Troponin I High Sens 3041.1 H* D 4953.9 H* D 4245.2 H* (0-20) pg/ml Coagulation 03/05/23 03/06/23 03/06/23 Range/Units 16:24 00:48 06:08 APTT 53.5 H* 51.3 H* 58.7 H* (21.0-31.0) Seconds CBC 03/06/23 Range/Units 06:08 WBC 12.98 H (4.8-10.8) K/ul RBC 5.05 (4.70-6.10) M/uL Hgb 15.0 (14.0-18.0) g/dl Hct 45.8 (42.0-52.0) % Plt Count 136 (130-400) K/uL Comprehensive Metabolic Panel 03/06/23 Range/Units 06:08 Sodium 138 (136-145) mmol/L Potassium 4.0 (3.5-5.1) mmol/L Chloride 102 (98-107) mmol/L Carbon Dioxide 31 (21-32) mmol/L BUN 22 (6-23) mg/dl Creatinine 0.70 (0.6-1.4) mg/dl Glucose 121 H (70-99(Fasting)) mg/dl Calcium 9.1 (8.6-10.3) mg/dl AST 42 H (13-39) U/L ALT 18 (7-52) U/L Alkaline Phosphatase 63 (34-104) U/L Total Protein 6.6 (6.0-8.3) gm/dl Albumin 3.7 (3.4-5.0) gm/dl Intake and Output 03/05/23 03/06/23 03/06/23 22:59 06:59 14:59 Intake Total 182.667 / 662.667 480 / 662.667 307.667 / 307.667 Balance 182.667 / -712.333 480 / -712.333 307.667 / 307.667 Intake: IV 182.667 / 182.667 307.667 / 307.667 Heparin Sodium/Dextrose 25,000 182.667 / 182.667 307.667 / 307.667 units In 500 ml @ 1,000 UNITS/ HR 20 mls/hr IV .Q24H [facility] Rx#: [id number] Oral 480 / 480 Other: # Unmeasured Voids 1 1 Weight 121.1 kg Weight Measurement Method Built in [facility] Diagnostic Findings EKG performed today 03/06/2023 reveals atrial fibrillation at 60 bpm, age-i ndeterminate inferior infarct pattern. Diffuse nonspecific T wave flattening without ST depression or elevation. A transthoracic echocardiogram was performed today and reviewed independently: Rate controlled atrial fibrillation noted at the time of the study Mild concentric left ventricular perjury, no left ventricular regional wall motion abnormalities, LVEF in the range of 55 to 60%, moderate left atrial lodgment, mild aortic valve calcification without aortic valve stenosis, trace mitral regurgitation, mild tricuspid regurgitation, the pulm artery systolic pressure is estimated be 35 mmHg.
--- NOTE | 2023-03-06 13:55 | Discharge Summary ---
Date of Service March 06, 2023 Admission HPI Per Admitting Provider 77-year-old male with PMH of T2DM, MORALES/nocturnal hypoxemia on 2 L oxygen at home with sleep, HLD, paroxysmal A-fib on Coumadin [5 mg tablet 1.5 tab on Sa, 1 tablet daily rest of the days], chronic diastolic CHF, HTN, CAD status post stent, actinic keratosis, seizure disorder on Keppra and Lamictal, leukocytosis, thrombocytopenia presented to the ED 03/05 with complaint of chest tightness. Patient reports having pizza last night and then going to bed. He started having chest tightness on and off throughout the night. He took 3 Tums with no relief. He also took 3 nitroglycerin sprays (each 5 min apart) with no relief. At 3:30 AM in the morning, he took all his morning medications, still did not feel any better. Then he called the ambulance and got to the hospital. He describes chest tightness being worse at 8/10, radiating to his left shoulder, associated with some sweating, denies any nausea or palpitation. Patient does have a history of CAD status post stents. Patient denies any headache or dizziness, reports chronic dry cough for more than 6 months, denies palpitation/belly pain/acute changes in bowel or bladder habit. Patient reports his appetite has been at his baseline. Denies any febrile illness lately. Patient is still complaining of occasional chest tightness, his troponin has been uptrending, EKG without acute ST or T changes, will get EKG with chest tightness/pain, will trend troponin, consult cardiology. Patient denies using tobacco [smoking/chewing], drinks alcohol very occasionally, denies use of recreational drugs. CODE STATUS: DNR/DNI as per my discussion with the patient. Medications were reviewed with the patient. Plan of care discussed with the patient and he voiced understanding. Admission Exam Per Admitting Provider GENERAL: Alert and oriented x3. NAD, on RA. Obese class II. HEENT: No pallor, no icterus. Pupils equal, round and reactive to light. Oral mucosa moist. NECK: No JVD, no neck masses. HEART: S1 and S2 heard. irregular rate and rhythm. No murmur, no gallop. RESPIRATORY SYSTEM: Normal AP diameter. No accessory muscle use. No wheezing, no crackles. ABDOMEN: Soft, bowel sounds present, nontender, no distention. CENTRAL NERVOUS SYSTEM: No facial droop. Speech is clear. Obeys simple commands. Moves extremities. EXTREMITIES: Trace edema, no erythema seen. Principal Diagnosis NSTEMI Discharge Exam GENERAL: Alert and oriented x3. NAD, on RA. Obese class II. HEENT: No pallor, no icterus. Pupils equal, round and reactive to light. Oral mucosa moist. NECK: No JVD, no neck masses. HEART: S1 and S2 heard. irregular rate and rhythm. No murmur, no gallop. RESPIRATORY SYSTEM: Normal AP diameter. No accessory muscle use. No wheezing, no crackles. ABDOMEN: Soft, bowel sounds present, nontender, no distention. CENTRAL NERVOUS SYSTEM: No facial droop. Speech is clear. Obeys simple commands. Moves extremities. EXTREMITIES: Trace edema, no erythema seen. Discharge Data Allergies Allergy/AdvReac Type Severity Reaction Status Date / Time lisinopril Allergy Intermediate HIVES Verified 12/07/22 13:02 Consultations 03/05/23 09:57 Consult Cardiology Routine 03/05/23 11:09 ED Decision to Admit Stat Hospital Course (1) Acute chest pain: Plan NSTEMI History of paroxysmal A-fib, on Coumadin History of CAD,; last cardiac catheterization in 2016 at [facility]; stent placed in LAD with noted 70% in-stent restenosis of mid RCA and a chronic occlusion distally. Presents with chest discomfort since the morning. EKG on admission personally reviewed; atrial fibrillation with ventricular rate of 49; nonspecific ST segment changes. High sensitive troponin was 15 on admission; up trended to 4953; down trended to 4245 Patient was admitted to telemetry floor; started on heparin drip for NSTEMI. Aspirin and Lipitor were continued. Coumadin was kept on hold. No beta-arlyn was given due to low ventricular rate. Losartan spironolactone and Imdur was continued. Echocardiogram was done; no regional wall motion abnormalities were noted. EF was 55 to 60%. Given the technical complexities of his past cardiac catheterization, cardiology recommend patient is transferred to tertiary center for complex cardiac catheterization/PCI. Patient to be transferred to [facility]. Accepting physician Dr. Adrian Walker Home medication were continued as before. Please note the above document was generated using voice recognition software. It may contain grammatical, syntax or spelling errors. Any formal questions or concerns about the content, text or information contained within the body of this dictation should be directly addressed to the provider for clarification Total Time Total Time Spent Total Time Spent (In Minutes): 40 Total Time Includes: Examination of the Patient, Discharge Planning, Medication Reconciliation, Communication With Other Providers and Other Discharge Plan Discharge Items Patient Disposition: Transfer Acute Care Hospital Reason For Visit: CHEST TIGHTNESS Discharge Diagnosis: NSTEMI Activity: Resume your previous activity Non-emergency contact: Primary Care Provider Call non-emergency contact if: you have any medication questions and your symptoms worsen Follow-up/Referrals: Domo Mcfarlane MD [Primary Care Provider] - [employer] Provider Instructions: Date of Service: March 06, 2023 Current Inpatient Medications Acetaminophen (Acetaminophen 325 Mg Tab) 650 mg PO Q4H PRN PRN Reason: Pain or Fever Stop: 04/04/23 09:56 Last Admin: 03/05/23 17:49 Dose: 650 mg Hydrocodone Bitart/Acetaminophen (Hydrocodone/Acetamophen 5/325mg Tab) 1 tab PO Q6H PRN PRN Reason: Pain Stop: 03/19/23 13:04 Last Admin: 03/06/23 10:39 Dose: 1 tab Al Hydrox/Mg Hydrox/Simethicone (Aluminum/Magnesium Susp 30 Ml Udc) 15 ml PO Q4H PRN PRN Reason: Dyspepsia Stop: 04/04/23 09:56 Albuterol (Albuterol Hfa 8 Gm Inhaler) 2 puffs INH Q4H PRN PRN Reason: Shortness Of Breath Stop: 04/04/23 13:04 Amlodipine Besylate (Amlodipine Besylate 5 Mg Tab) 2.5 mg PO QAM CRISTIANO Stop: 04/05/23 08:59 Last Admin: 03/06/23 08:13 Dose: 2.5 mg Artificial Tears (Artificial Tears) 1 drops OP Q4 PRN PRN Reason: Dry Eye(S) Stop: 04/04/23 13:11 Aspirin (Aspirin 81 Mg Ectab) 81 mg PO QAM CRISTIANO Stop: 04/05/23 08:59 Last Admin: 03/06/23 08:14 Dose: 81 mg Atorvastatin Calcium (Atorvastatin 40 Mg Tab) 80 mg PO PM CRISTIANO Stop: 04/04/23 20:59 Last Admin: 03/05/23 19:54 Dose: 80 mg Brimonidine Tartrate (Brimonidine Tartrate 0.2% 5ml) 1 drops OP BID [facility] Stop: 04/04/23 20:59 Last Admin: 03/06/23 08:14 Dose: 1 drops Dextrose (Dextrose 50% 50 Ml Syringe) 25 - 50 ml IV UD PRN; Protocol PRN Reason: Hypoglycemia Protocol Stop: 04/04/23 09:56 Fluticasone/Vilanterol (Fluticasone/Vilanterol 100/25mcg 14 Puffs/Inhaler) 1 puffs INH QPM [facility]; Protocol Stop: 04/04/23 20:59 Last Admin: 03/05/23 19:51 Dose: 1 puffs Glucagon (Glucagon For Inj 1 Mg Vial) 1 mg SQ UD PRN; Protocol PRN Reason: Hypoglycemia Protocol Stop: 04/04/23 09:56 Glucose (Glucose 10 Tab/Tube) 4 - 8 tab PO UD PRN; Protocol PRN Reason: Hypoglycemia Treatment Stop: 04/04/23 09:56 Glucose (Glucose 40% Gel 15 Gm Tube) 15 - 30 gm PO UD PRN; Protocol PRN Reason: Hypoglycemia Protocol Stop: 04/04/23 09:56 Heparin Sodium/Dextrose (Heparin Sodium/Dextrose) 25,000 units in 500 mls @ 20 mls/hr IV .Q24H [facility]; Protocol Stop: 04/04/23 09:29 Last Titration: 03/06/23 10:40 Dose: 1,000 units/hr, 20 mls/hr Insulin Aspart (Insulin Aspart Per Unit Charge) 0 units SC ACHS [facility] Stop: 04/04/23 11:29 Last Admin: 03/06/23 11:40 Dose: Not Given Insulin Glargine (Lantus Per Unit Charge) 5 units SQ BID [facility] Stop: 04/04/23 20:59 Last Admin: 03/06/23 08:15 Dose: Not Given Isosorbide Mononitrate (Isosorbide Rich Extended Rel 30 Mg Tabcr) 30 mg PO QAM [facility] Stop: 04/05/23 08:59 Last Admin: 03/06/23 08:15 Dose: 30 mg Lamotrigine (Lamotrigine 100 Mg Tab) 100 mg PO BID [facility] Stop: 04/04/23 20:59 Last Admin: 03/06/23 08:15 Dose: 100 mg Latanoprost (Latanoprost 0.005% Op Soln 2.5 Ml Btl) 1 drops OP HS CRISTIANO Stop: 04/04/23 20:59 Last Admin: 03/05/23 20:44 Dose: 1 drops Levetiracetam (Levetiracetam 500 Mg Tab) 2,000 mg PO BID CRISTIANO Stop: 04/04/23 20:59 Last Admin: 03/06/23 08:15 Dose: 2,000 mg Losartan Potassium (Losartan Potassium 25 Mg Tab) 25 mg PO QAM CRISTIANO Stop: 04/05/23 08:59 Last Admin: 03/06/23 08:16 Dose: 25 mg Magnesium Hydroxide (Magnesium Hydroxide Susp 30 Ml Udc) 30 ml PO Q12H PRN PRN Reason: Constipation Stop: 04/04/23 09:56 Melatonin (Melatonin 3 Mg Tab) 3 mg PO HS PRN PRN Reason: Sleep Stop: 04/04/23 23:02 Last Admin: 03/05/23 23:56 Dose: 3 mg Miscellaneous (Carbohydrates For Hypoglycemia ) 15 - 30 gm PO UD PRN PRN Reason: Hypoglycemia Protocol Stop: 04/04/23 09:56 Nitroglycerin (Nitroglycerin Sl 0.4 Mg/Tab Tab) 0.4 mg SL Q5M PRN PRN Reason: Chest Pain Stop: 04/04/23 09:56 Pantoprazole Sodium (Pantoprazole 40 Mg Tab) 40 mg PO BID [facility] Stop: 04/04/23 13:04 Last Admin: 03/06/23 08:16 Dose: 40 mg Spironolactone (Spironolactone 12.5 Mg Tab) [facility] [place] [facility] Stop: 04/05/23 08:59 Last Admin: 03/06/23 08:16 Dose: 12.5 mg Vitamin D (Cholecalciferol 1,000 Units 25 Mcg Tab) 1,000 units PO QAM [facility] Stop: 04/05/23 08:59 Last Admin: 03/06/23 08:15 Dose: 1,000 units Pending Studies at Discharge: No Stand-Alone Forms: [facility] Skilled Items Patient informed of condition?: No DNR: Yes Discharge Level of Care: Other Communicable Disease: No Discharge Prognosis: Stable Lines: Peripheral IV Urinary Catheter: No Medications and DC Order Prescriptions: Continued latanoprost 0.005 % Drops 1 drp OPHTHALMIC (EYE) HS atorvastatin 80 mg Tablet 80 mg PO PM hydrocodone-acetaminophen 5-325 mg Tablet 1 tab PO Q6 PRN (Reason: Pain) isosorbide mononitrate 30 mg Tablet Extended Release 24 Hr 30 mg PO QAM amlodipine 5 mg Tablet 2.5 mg PO QAM aspirin 81 mg Tablet,Delayed Release (Dr/Ec) 81 mg PO QAM warfarin 5 mg Tablet 5 mg PO USEASDIRECTD Rx Instructions: coumadin 7.5mg po every Tuesday and tuesday and 5mg po all other days. losartan 25 mg Tablet 25 mg PO QAM nitroglycerin 0.4 mg Tablet, Sublingual 0.4 mg sublingual UD PRN (Reason: Angina) Patient Comments: Patient states "I've never head to use this yet" levetiracetam 750 mg Tablet 1,500 mg PO BID albuterol sulfate [Ventolin HFA] 90 mcg/actuation Hfa Aerosol Inhaler 2 puff INHALATION Q4 PRN (Reason: Shortness Of Breath) lamotrigine [Lamictal] 100 mg Tablet 100 mg PO BID white petrolatum-mineral oil 83-15 % Ointment 1 applic OPHTHALMIC (EYE) Q4 PRN (Reason: Dry Eye(S)) fluticasone propion-salmeterol 250-50 mcg/dose blister with device 1 inh INHALATION BID atenolol 25 mg Tablet 12.5 mg PO QAM levetiracetam 500 mg tablet 500 mg PO BID furosemide 20 mg tablet 20 mg PO DAILY Patient Comments: takes 2 tablets tue/tue/tue and 1 tablet all other days brimonidine 0.2 % Drops 1 drp OPHTHALMIC (EYE) BID spironolactone 25 mg Tablet 12.5 mg PO QAM omeprazole 20 mg Tablet,Delayed Release (Dr/Ec) 20 mg PO QAM Jardiance 10 mg Tablet 10 mg PO QAM cholecalciferol (vitamin D3) [Vitamin D3] 25 mcg (1,000 unit) Tablet 25 mcg PO QAM amoxicillin 500 mg Capsule 2,000 mg PO UD PRN (Reason: prior to dental procedures) Admission Data Admit Date/Time: 03/05/23 09:57 Attending Provider: Apollo Montano Admit Provider: Arline Nava Primary Care Provider: Domo Mcfarlane Other Providers: Edwar Hatfield ; Arline Nava
--- NOTE | 2023-03-06 14:49 | Communication Note ---
Date of Service: March 06, 2023 COVID screen ordered per request of accepting facility. I called the patient's nurse to let her know about the order and the rationale for why the test was ordered.
[2023-03-06] MEDS: ATORVASTATIN 40 MG TAB PO SCH (21:05)
[2023-03-06] MEDS: FLUTICASONE/VILANTEROL 100/25MCG 14 PUFFS/INHALER INH SCH (21:07)
[2023-03-06] MEDS: LATANOPROST 0.005% OP SOLN 2.5 ML BTL OP SCH (21:09)
[2023-03-06] MEDS: MELATONIN 3 MG TAB PO PRN (21:15)
[2023-03-07] MEDS: HYDROCODONE/ACETAMOPHEN 5/325MG TAB PO PRN ×3 (02:01→15:36)
[2023-03-07 06:38] LABS: Basophils # (auto) 0.11 K/uL (0.00-0.20); Basophils % (auto) 0.9 %; Eosinophils # (auto) 0.27 K/uL (0.00-0.50); Eosinophils % (auto) 2.3 %; Hematocrit (blood only) 44.8 % (42.0-52.0); Hemoglobin 14.7 g/dl (14.0-18.0); Immature Granulocytes # (auto) 0.07 K/uL (0.01-0.20); Immature Granulocytes % (auto) 0.6 %; Lymphocytes # (auto) 2.61 K/uL (1.20-3.40); Lymphocytes % (auto) 22.1 %; Mean Corpuscular Hemoglobin 29.7 pg (25.0-34.0); Mean Corpuscular Hgb Conc 32.8 g/dL (32.0-36.0); Mean Corpuscular Volume 90.5 fL (80.0-100.0); Mean Platelet Volume 11.4 fL (9.4-12.4); Monocytes % (auto) 16.9 %; Neutrophils # (auto) 6.75 K/uL (1.40-6.50); Neutrophils % (auto) 57.2 %; Platelet Count 126 K/uL (130-400); RDW Coefficient of Variation 14.4 % (11.5-14.5); RDW Standard Deviation 47.5 fL (36.4-46.3); Red Blood Count 4.95 M/uL (4.70-6.10); White Blood Count 11.81 K/ul (4.8-10.8)
[2023-03-07] MEDS: INSULIN ASPART PER UNIT CHARGE SC SCH ×2 (07:09→11:29)
[2023-03-07 07:17] LABS: BUN Creatinine Ratio 28.1 (10-20); Calcium 8.8 mg/dl (8.6-10.3); Creatinine Clr Calc Pharmacy 134.9 ml/min; Est GFR (African American) 110.2 ml/min; Est GFR (Non-African American) 95.1 ml/min; Potassium 3.7 mmol/L (3.5-5.1)
[2023-03-07 07:42] LABS: Estimated Average Glucose 143 mg/dl; Hemoglobin A1C 6.6 % (4.5-5.6)
[2023-03-07 08:11] LABS: Partial Thromboplastin Time 85.7 Seconds (21.0-31.0)
[2023-03-07] MEDS: amLODIPine BESYLATE 5 MG TAB PO SCH (08:36)
[2023-03-07] MEDS: levETIRAcetam 500 MG TAB PO SCH (08:37)
[2023-03-07] MEDS: LANTUS PER UNIT CHARGE SQ SCH (08:38)
[2023-03-07] MEDS: lamoTRIgine 100 MG TAB PO SCH (08:38)
[2023-03-07] MEDS: SPIRONOLACTONE 12.5 MG TAB PO SCH (08:38)
[2023-03-07] MEDS: ASPIRIN 81 MG ECTAB PO SCH (08:38)
[2023-03-07] MEDS: ISOSORBIDE MONO EXTENDED REL 30 MG TABCR PO SCH (08:38)
[2023-03-07] MEDS: LOSARTAN POTASSIUM 25 MG TAB PO SCH (08:38)
[2023-03-07] MEDS: CHOLECALCIFEROL 1,000 UNITS 25 MCG TAB PO SCH (08:38)
[2023-03-07] MEDS: PANTOprazole 40 MG TAB PO SCH (08:38)
[2023-03-07] MEDS: BRIMONIDINE TARTRATE 0.2% 5ML OP SCH (08:39)
--- NOTE | 2023-03-07 11:35 | Cardiology Progress Note ---
Date of Service March 07, 2023 Assessment & Plan (1) NSTEMI (non-ST elevated myocardial infarction): Plan: -Patient's symptoms and high sensitive troponin has trended up and peaked at 4953 pg/ml, consistent with a non-ST segment elevation myocardial infarction. -Patient currently comfortable. Coumadin on hold and heparin drip infusing. -Per review of cardiac catheterization report of procedure performed in 2017 at [facility] [place], patient underwent PCI, drug-eluting stent to the mid LAD at that time. A 70% lesion which was an in-stent restenosis of the mid RCA noted at that time with high-grade occlusion of the distal RCA. The RCA lesion has been managed medically in the interim. -Given the technical complexities of his past cardiac catheterization, recommend patient is transferred to tertiary center for complex cardiac catheterization/PCI. Patient agreeable. I discussed his findings and plan with his daughter, Deysi, who is a home health nurse and questions and concerns answered. -Continue aspirin, unfractioned heparin, losartan, aspirin, spironolactone, amlodipine 2.5 mg daily, atorvastatin 80 mg daily, and isosorbide mononitrate. -Given findings of small pleural effusion on chest x-ray, and mild hypoxia, will administer furosemide 20 mg IV x1 now. His oral furosemide has been on hold pending consideration of catheterization. -Future considerations include transitioning him from Coumadin to Eliquis given need for anticoagulation and dual antiplatelet therapy. (2) Permanent atrial fibrillation: Plan: -Coumadin on hold favoring heparin for upcoming cardiac catheterization. Future considerations include transitioning him from Coumadin to Eliquis given need for antiplatelet therapy and anticoagulation. -Patient is not on any AV mellissa arlyn due to borderline bradycardia. Case discussed by telephone with Dr. Adrian Walker who accepts the patient in transfer. We will make arrangements for transfer by [facility] ground pending bed availability. Plan As above continue current medical regimen with planned diagnostic cardiac catheterization. Patient received single dose of IV furosemide yesterday. Oral furosemide held this morning Admission and Anticipated Discharge Date Admission Date: March 05, 2023 Subjective Patient was seen and examined, chart, medications, telemetry reviewed Noted transient chest tightness burning earlier this morning relieved by 1 sublingual nitroglycerin. Symptoms different from presenting complaint No acute EKG changes Currently asymptomatic no chest pains, shortness of breath. Hemodynamically stable with good heart rate and blood pressure control Patient anticoagulated with IV Awaiting transfer to [facility] Physical Exam Physical Exam: Temp Pulse Resp BP Pulse Ox O2 Del Method O2 Flow Rate 36.5 C 61 20 118/67 92 Nasal Cannula 3 03/06/23 11:24 03/06/23 11:24 03/06/23 11:24 03/06/23 11:24 03/06/23 11:24 03/06/23 11:24 03/06/23 11:24 Constitutional: WD/WN, vitals as above Respiratory: normal respiratory effort, lungs clear to auscultation Cardiovascular: Rate/Rhythm: + irregularly irregular Heart Sounds: + murmur (1/6 systolic murmur) Vessels: no JVD Extremities: no edema Gastrointestinal (Abdomen): normal bowel sounds, soft, nontender, no hepatosplenomegaly Neurologic: PERRL, EOMI, accommodation nl, no face palsy, no dysarthria Results & Data Vital Signs (Past 12 Hours) Vital Signs Temp Pulse Pulse Pulse Resp BP Pulse Ox 03/07/23 10:55 36.8 C 72 18 111/74 96 03/07/23 08:34 90 18 144/91 H 03/07/23 08:21 69 18 160/112 H 95 03/07/23 07:22 65 03/07/23 07:22 03/07/23 07:00 36.6 C 64 18 114/84 94 03/07/23 03:15 36.6 C 63 20 118/95 97 03/07/23 00:03 36.4 C 71 18 128/86 92 O2 Del Method O2 Flow Rate 03/07/23 10:55 Nasal Cannula 2 03/07/23 08:34 03/07/23 08:21 Nasal Cannula 2 03/07/23 07:22 03/07/23 07:22 Room Air 03/07/23 07:00 Room Air 03/07/23 03:15 Nasal Cannula 3 03/07/23 00:03 Room Air Laboratory Results Laboratory Results - last 24 hr 03/06/23 03/06/23 03/06/23 06:08 15:00 16:20 WBC RBC Hgb Hct MCV MCH MCHC RDW Std Deviation RDW Coeff of Ton Plt Count MPV Immature Gran % (Auto) Neut % (Auto) Lymph % (Auto) Casey % (Auto) Eos % (Auto) Baso % (Auto) Neut # (Auto) Lymph # (Auto) Casey # (Auto) Eos # (Auto) Baso # (Auto) Immature Gran # (Auto) APTT PTT Ratio Sodium Potassium Chloride Carbon Dioxide Anion Gap BUN Creatinine Est Cr Clr Drug Dosing Est GFR ( Amer) Est GFR (Non-Af Amer) BUN/Creatinine Ratio Glucose POC Glucose 115 H Estimat Average Glucose 143 Hemoglobin A1c 6.6 H Calcium SARS-CoV-2 (PCR) NEGATIVE 03/06/23 03/07/23 03/07/23 20:48 06:04 06:04 WBC 11.81 H RBC 4.95 Hgb 14.7 Hct 44.8 MCV 90.5 MCH 29.7 MCHC 32.8 RDW Std Deviation 47.5 H RDW Coeff of Ton 14.4 Plt Count 126 L MPV 11.4 Immature Gran % (Auto) 0.6 Neut % (Auto) 57.2 Lymph % (Auto) 22.1 Casey % (Auto) 16.9 Eos % (Auto) 2.3 Baso % (Auto) 0.9 Neut # (Auto) 6.75 H Lymph # (Auto) 2.61 Casey # (Auto) 2.00 H Eos # (Auto) 0.27 Baso # (Auto) 0.11 Immature Gran # (Auto) 0.07 APTT PTT Ratio Sodium 137 Potassium 3.7 Chloride 101 Carbon Dioxide 31 Anion Gap 5 BUN 18 Creatinine 0.64 Est Cr Clr Drug Dosing 134.9 Est GFR ( Amer) 110.2 Est GFR (Non-Af Amer) 95.1 BUN/Creatinine Ratio 28.1 H Glucose 107 H POC Glucose 106 H Estimat Average Glucose Hemoglobin A1c Calcium 8.8 SARS-CoV-2 (PCR) 03/07/23 03/07/23 03/07/23 06:04 06:58 10:58 WBC RBC Hgb Hct MCV MCH MCHC RDW Std Deviation RDW Coeff of Ton Plt Count MPV Immature Gran % (Auto) Neut % (Auto) Lymph % (Auto) Casey % (Auto) Eos % (Auto) Baso % (Auto) Neut # (Auto) Lymph # (Auto) Casey # (Auto) Eos # (Auto) Baso # (Auto) Immature Gran # (Auto) APTT 85.7 H* PTT Ratio 3.0 Sodium Potassium Chloride Carbon Dioxide Anion Gap BUN Creatinine Est Cr Clr Drug Dosing Est GFR ( Amer) Est GFR (Non-Af Amer) BUN/Creatinine Ratio Glucose POC Glucose 110 H 124 H Estimat Average Glucose Hemoglobin A1c Calcium SARS-CoV-2 (PCR)
--- NOTE | 2023-03-07 11:49 | Hospitalist Progress Note ---
Date of Service March 07, 2023 Assessment & Plan (1) Acute chest pain: Plan NSTEMI History of paroxysmal A-fib, on Coumadin History of CAD,; [place] [facility] [place] in [place] with noted 70% in-stent restenosis of mid RCA and a chronic occlusion distally. Presents with chest discomfort since the morning. EKG on admission personally reviewed; atrial fibrillation with ventricular rate of 49; nonspecific ST segment changes. High sensitive troponin was 15 on admission; up trended to 4953; down trended to 4245 Patient was admitted to telemetry floor; started on heparin drip for NSTEMI. Aspirin and Lipitor were continued. Coumadin was kept on hold. No beta-arlyn was given due to low ventricular rate. Losartan spironolactone and Imdur was continued. Echocardiogram was done; no regional wall motion abnormalities were noted. EF was 55 to 60%. Given the technical complexities of his past cardiac catheterization, cardiology recommend patient is transferred to tertiary center for complex cardiac catheterization/PCI. Patient to be transferred to [facility] when bed is available. Accepting physician Dr. Adrian Walker H/o GERD:w/ do PPI BID for now, takes omeprazole daily at home. History of seizure:Patient takes Keppra 2000 mg twice daily and Lamictal 100 mg twice daily, continue same Chronic back pain; on hydrocodoneacetaminophen as needed every 6 hours. Leukocytosis:History of, patient with no febrile illness lately, monitor. Other chronic medical conditions: Continue with/resume home meds as and when able. Time spent evaluating patient, direct bedside care, chart review, placing orders, interpretation of diagnostic studies, discussion with consultants, patient, and family members, as well as other required patient management activities is 60 minutes. Please note the above document was generated using voice recognition software. It may contain grammatical, syntax or spelling errors. Any formal questions or concerns about the content, text or information contained within the body of this dictation should be directly addressed to the provider for clarification Admission and Anticipated Discharge Date Admission Date: March 05, 2023 Subjective Patient seen and examined at bedside. Is sitting up on the side of the bed; not in distress. Reports an episode of chest discomfort; was given nitro. EKG reviewed; atrial fibrillation with With ventricular rate of 56 bpm Review of Systems Review of Systems: All systems reviewed & are unremarkable except as noted in Subjective Physical Exam Physical Exam: GENERAL: Alert and oriented x3. NAD, on RA. Obese class II. HEENT: No pallor, no icterus. Pupils equal, round and reactive to light. Oral mucosa moist. NECK: No JVD, no neck masses. HEART: S1 and S2 heard. irregular rate and rhythm. No murmur, no gallop. RESPIRATORY SYSTEM: Normal AP diameter. No accessory muscle use. No wheezing, no crackles. ABDOMEN: Soft, bowel sounds present, nontender, no distention. CENTRAL NERVOUS SYSTEM: No facial droop. Speech is clear. Obeys simple commands. Moves extremities. EXTREMITIES: Trace edema, no erythema seen. Results & Data Results & Data Vital Signs (Past 12 Hours) Vital Signs Temp Pulse Pulse Pulse Resp BP Pulse Ox 03/07/23 10:55 36.8 C 72 18 111/74 96 03/07/23 08:34 90 18 144/91 H 03/07/23 08:21 69 18 160/112 H 95 03/07/23 07:22 65 03/07/23 07:22 03/07/23 07:00 36.6 C 64 18 114/84 94 03/07/23 03:15 36.6 C 63 20 118/95 97 03/07/23 00:03 36.4 C 71 18 128/86 92 O2 Del Method O2 Flow Rate 03/07/23 10:55 Nasal Cannula 2 03/07/23 08:34 03/07/23 08:21 Nasal Cannula 2 03/07/23 07:22 03/07/23 07:22 Room Air 03/07/23 07:00 Room Air 03/07/23 03:15 Nasal Cannula 3 03/07/23 00:03 Room Air Laboratory Results Laboratory Results WBC 11.81 K/ul (4.8-10.8) H 03/07/23 06:04 RBC 4.95 M/uL (4.70-6.10) 03/07/23 06:04 Hgb 14.7 g/dl (14.0-18.0) 03/07/23 06:04 Hct 44.8 % (42.0-52.0) 03/07/23 06:04 MCV 90.5 fL (80.0-100.0) 03/07/23 06:04 MCH 29.7 pg (25.0-34.0) 03/07/23 06:04 MCHC 32.8 g/dL (32.0-36.0) 03/07/23 06:04 RDW Std Deviation 47.5 fL (36.4-46.3) H 03/07/23 06:04 RDW Coeff of Ton 14.4 % (11.5-14.5) 03/07/23 06:04 Plt Count 126 K/uL (130-400) L 03/07/23 06:04 MPV 11.4 fL (9.4-12.4) 03/07/23 06:04 Immature Gran % (Auto) 0.6 % 03/07/23 06:04 Neut % (Auto) 57.2 % 03/07/23 06:04 Lymph % (Auto) 22.1 % 03/07/23 06:04 Marin % (Auto) 16.9 % 03/07/23 06:04 Eos % (Auto) 2.3 % 03/07/23 06:04 Baso % (Auto) 0.9 % 03/07/23 06:04 Neut # (Auto) 6.75 K/uL (1.40-6.50) H 03/07/23 06:04 Lymph # (Auto) 2.61 K/uL (1.20-3.40) 03/07/23 06:04 Marin # (Auto) 2.00 K/uL (0.11-0.59) H 03/07/23 06:04 Eos # (Auto) 0.27 K/uL (0.00-0.50) 03/07/23 06:04 Baso # (Auto) 0.11 K/uL (0.00-0.20) 03/07/23 06:04 Immature Gran # (Auto) 0.07 K/uL (0.01-0.20) 03/07/23 06:04 PT 16.1 Seconds (9.0-12.0) H 03/05/23 05:45 INR 1.5 (0.9-1.1) H 03/05/23 05:45 APTT 85.7 Seconds (21.0-31.0) H* 03/07/23 06:04 PTT Ratio 3.0 03/07/23 06:04 Sodium 137 mmol/L (136-145) 03/07/23 06:04 Potassium 3.7 mmol/L (3.5-5.1) 03/07/23 06:04 Chloride 101 mmol/L (98-107) 03/07/23 06:04 Carbon Dioxide 31 mmol/L (21-32) 03/07/23 06:04 Anion Gap 5 (3-11) 03/07/23 06:04 BUN 18 mg/dl (6-23) 03/07/23 06:04 Creatinine 0.64 mg/dl (0.6-1.4) 03/07/23 06:04 Est Cr Clr Drug Dosing 134.9 ml/min 03/07/23 06:04 Est GFR ( Amer) 110.2 ml/min 03/07/23 06:04 Est GFR (Non-Af Amer) 95.1 ml/min 03/07/23 06:04 BUN/Creatinine Ratio 28.1 (10-20) H 03/07/23 06:04 Glucose 107 mg/dl (70-99(Fasting)) H 03/07/23 06:04 POC Glucose 124 mg/dl (70-99) H 03/07/23 10:58 Estimat Average Glucose 143 mg/dl 03/06/23 06:08 Hemoglobin A1c 6.6 % (4.5-5.6) H 03/06/23 06:08 Calcium 8.8 mg/dl (8.6-10.3) 03/07/23 06:04 Phosphorus 4.3 mg/dl (2.5-4.9) 03/06/23 06:08 Magnesium 2.1 mg/dl (1.7-2.4) 03/06/23 06:08 Total Bilirubin 0.9 mg/dl (0.2-1.0) 03/06/23 06:08 AST 42 U/L (13-39) H 03/06/23 06:08 ALT 18 U/L (7-52) 03/06/23 06:08 Alkaline Phosphatase 63 U/L (34-104) 03/06/23 06:08 Troponin I High Sens 4245.2 pg/ml (0-20) H* 03/06/23 06:08 Total Protein 6.6 gm/dl (6.0-8.3) 03/06/23 06:08 Albumin 3.7 gm/dl (3.4-5.0) 03/06/23 06:08 Globulin 2.9 gm/dl (2.5-4.0) 03/06/23 06:08 Albumin/Globulin Ratio 1.3 (0.9-2) 03/06/23 06:08 SARS-CoV-2 (PCR) NEGATIVE (Negative) 03/06/23 15:00 Impressions Chest X-Ray 03/05/23 05:43 XR chest 1V portable CLINICAL HISTORY: Chest pain, nonspecific TECHNIQUE: Single frontal radiograph of the chest was obtained. Comparison: Comparison is made to chest radiograph 05/15/2022 FINDINGS: No lines and tubes are seen. The cardiomediastinal silhouette is normal. Right lower lung airspace opacity is seen. Small right pleural effusion. IMPRESSION: Small right pleural effusion with underlying airspace opacity which represent atelectasis, pneumonia, and/or aspiration. ACT 112: Negative or not required by law. Electronically signed by: Doug Peralta M.D. 03/05/2023 9:15 AM
--- NOTE | 2023-03-07 11:50 | Discharge Summary ---
Date of Service March 07, 2023 Admission HPI Per Admitting Provider 77-year-old male with PMH of T2DM, MORALES/nocturnal hypoxemia on 2 L oxygen at home with sleep, HLD, paroxysmal A-fib on Coumadin [5 mg tablet 1.5 tab on Sa, 1 tablet daily rest of the days], chronic diastolic CHF, HTN, CAD status post stent, actinic keratosis, seizure disorder on Keppra and Lamictal, leukocytosis, thrombocytopenia presented to the ED 03/05 with complaint of chest tightness. Patient reports having pizza last night and then going to bed. He started having chest tightness on and off throughout the night. He took 3 Tums with no relief. He also took 3 nitroglycerin sprays (each 5 min apart) with no relief. At 3:30 AM in the morning, he took all his morning medications, still did not feel any better. Then he called the ambulance and got to the hospital. He describes chest tightness being worse at 8/10, radiating to his left shoulder, associated with some sweating, denies any nausea or palpitation. Patient does have a history of CAD status post stents. Patient denies any headache or dizziness, reports chronic dry cough for more than 6 months, denies palpitation/belly pain/acute changes in bowel or bladder habit. Patient reports his appetite has been at his baseline. Denies any febrile illness lately. Patient is still complaining of occasional chest tightness, his troponin has been uptrending, EKG without acute ST or T changes, will get EKG with chest tightness/pain, will trend troponin, consult cardiology. Patient denies using tobacco [smoking/chewing], drinks alcohol very occasionally, denies use of recreational drugs. CODE STATUS: DNR/DNI as per my discussion with the patient. Medications were reviewed with the patient. Plan of care discussed with the patient and he voiced understanding. Admission Exam Per Admitting Provider GENERAL: Alert and oriented x3. NAD, on RA. Obese class II. HEENT: No pallor, no icterus. Pupils equal, round and reactive to light. Oral mucosa moist. NECK: No JVD, no neck masses. HEART: S1 and S2 heard. irregular rate and rhythm. No murmur, no gallop. RESPIRATORY SYSTEM: Normal AP diameter. No accessory muscle use. No wheezing, no crackles. ABDOMEN: Soft, bowel sounds present, nontender, no distention. CENTRAL NERVOUS SYSTEM: No facial droop. Speech is clear. Obeys simple commands. Moves extremities. EXTREMITIES: Trace edema, no erythema seen. Principal Diagnosis NSTEMI Discharge Exam GENERAL: Alert and oriented x3. NAD, on RA. Obese class II. HEENT: No pallor, no icterus. Pupils equal, round and reactive to light. Oral mucosa moist. NECK: No JVD, no neck masses. HEART: S1 and S2 heard. irregular rate and rhythm. No murmur, no gallop. RESPIRATORY SYSTEM: Normal AP diameter. No accessory muscle use. No wheezing, no crackles. ABDOMEN: Soft, bowel sounds present, nontender, no distention. CENTRAL NERVOUS SYSTEM: No facial droop. Speech is clear. Obeys simple commands. Moves extremities. EXTREMITIES: Trace edema, no erythema seen. Discharge Data Allergies Allergy/AdvReac Type Severity Reaction Status Date / Time lisinopril Allergy Intermediate HIVES Verified 12/07/22 13:02 Consultations 03/05/23 09:57 Consult Cardiology Routine 03/05/23 11:09 ED Decision to Admit Stat Hospital Course (1) Acute chest pain: Plan NSTEMI History of paroxysmal A-fib, on Coumadin History of CAD,; [place] [facility] [place] in [place] with noted 70% in-stent restenosis of mid RCA and a chronic occlusion distally. Presents with chest discomfort since the morning. EKG on admission personally reviewed; atrial fibrillation with ventricular rate of 49; nonspecific ST segment changes. High sensitive troponin was 15 on admission; up trended to 4953; down trended to 4245 Patient was admitted to telemetry floor; started on heparin drip for NSTEMI. Aspirin and Lipitor were continued. Coumadin was kept on hold. No beta-arlyn was given due to low ventricular rate. Losartan spironolactone and Imdur was continued. Echocardiogram was done; no regional wall motion abnormalities were noted. EF was 55 to 60%. Given the technical complexities of his past cardiac catheterization, cardiology recommend patient is transferred to tertiary center for complex cardiac catheterization/PCI. Patient to be transferred to [facility] when bed is available. Accepting physician Dr. Adrian Walker Please note the above document was generated using voice recognition software. It may contain grammatical, syntax or spelling errors. Any formal questions or concerns about the content, text or information contained within the body of this dictation should be directly addressed to the provider for clarification Total Time Total Time Spent Total Time Spent (In Minutes): 35 Total Time Includes: Examination of the Patient, Discharge Planning, Medication Reconciliation, Communication With Other Providers and Other Discharge Plan Discharge Items Patient Disposition: Transfer Acute Care Hospital Reason For Visit: CHEST TIGHTNESS Discharge Diagnosis: NSTEMI Activity: Resume your previous activity Non-emergency contact: Primary Care Provider Call non-emergency contact if: you have any medication questions and your symptoms worsen Follow-up/Referrals: Domo Mcfarlane MD [Primary Care Provider] - Diet: Regular Sindhu Attending Provider Instructions: History of CAD,; [place] [facility] [place] in LAD with noted 70% in-stent restenosis of mid RCA and a chronic occlusion distally. Presents with chest discomfort since the morning. EKG on admission personally reviewed; atrial fibrillation with ventricular rate of 49; nonspecific ST segment changes. High sensitive troponin was 15 on admission; up trended to 4953; down trended to 4245 Patient was admitted to telemetry floor; started on heparin drip for NSTEMI. Aspirin and Lipitor were continued. Coumadin was kept on hold. No beta-arlyn was given due to low ventricular rate. Losartan spironolactone and Imdur was continued. Echocardiogram was done; no regional wall motion abnormalities were noted. EF was 55 to 60%. Given the technical complexities of his past cardiac catheterization, cardiology recommend patient is transferred to tertiary center for complex cardiac catheterization/PCI. Patient to be transferred to [facility]. Accepting physician Dr. Adrian Manley Machine Fitter Provider Instructions: Date of Service: March 06, 2023 Current Inpatient Medications Acetaminophen (Acetaminophen 325 Mg Tab) 650 mg PO Q4H PRN PRN Reason: Pain or Fever Stop: 04/04/23 09:56 Last Admin: 03/05/23 17:49 Dose: 650 mg Hydrocodone Bitart/Acetaminophen (Hydrocodone/Acetamophen 5/325mg Tab) 1 tab PO Q6H PRN PRN Reason: Pain Stop: 03/19/23 13:04 Last Admin: 03/06/23 10:39 Dose: 1 tab Al Hydrox/Mg Hydrox/Simethicone (Aluminum/Magnesium Susp 30 Ml Udc) 15 ml PO Q4H PRN PRN Reason: Dyspepsia Stop: 04/04/23 09:56 Albuterol (Albuterol Hfa 8 Gm Inhaler) 2 puffs INH Q4H PRN PRN Reason: Shortness Of Breath Stop: 04/04/23 13:04 Amlodipine Besylate (Amlodipine Besylate 5 Mg Tab) 2.5 mg PO QAM CRISTIANO Stop: 04/05/23 08:59 Last Admin: 03/06/23 08:13 Dose: 2.5 mg Artificial Tears (Artificial Tears) 1 drops OP Q4 PRN PRN Reason: Dry Eye(S) Stop: 04/04/23 13:11 Aspirin (Aspirin 81 Mg Ectab) 81 mg PO QAM CRISTIANO Stop: 04/05/23 08:59 Last Admin: 03/06/23 08:14 Dose: 81 mg Atorvastatin Calcium (Atorvastatin 40 Mg Tab) 80 mg PO PM CRISTIANO Stop: 04/04/23 20:59 Last Admin: 03/05/23 19:54 Dose: 80 mg Brimonidine Tartrate (Brimonidine Tartrate 0.2% 5ml) 1 drops OP BID CRISTIANO Stop: 04/04/23 20:59 Last Admin: 03/06/23 08:14 Dose: 1 drops Dextrose (Dextrose 50% 50 Ml Syringe) 25 - 50 ml IV UD PRN; Protocol PRN Reason: Hypoglycemia Protocol Stop: 04/04/23 09:56 Fluticasone/Vilanterol (Fluticasone/Vilanterol 100/25mcg 14 Puffs/Inhaler) 1 puffs INH QPM CRISTIANO; Protocol Stop: 04/04/23 20:59 Last Admin: 03/05/23 19:51 Dose: 1 puffs Glucagon (Glucagon For Inj 1 Mg Vial) 1 mg SQ UD PRN; Protocol PRN Reason: Hypoglycemia Protocol Stop: 04/04/23 09:56 Glucose (Glucose 10 Tab/Tube) 4 - 8 tab PO UD PRN; Protocol PRN Reason: Hypoglycemia Treatment Stop: 04/04/23 09:56 Glucose (Glucose 40% Gel 15 Gm Tube) 15 - 30 gm PO UD PRN; Protocol PRN Reason: Hypoglycemia Protocol Stop: 04/04/23 09:56 Heparin Sodium/Dextrose (Heparin Sodium/Dextrose) 25,000 units in 500 mls @ 20 mls/hr IV .Q24H [facility]; Protocol Stop: 04/04/23 09:29 Last Titration: 03/06/23 10:40 Dose: 1,000 units/hr, 20 mls/hr Insulin Aspart (Insulin Aspart Per Unit Charge) 0 units SC ACHS [facility] Stop: 04/04/23 11:29 Last Admin: 03/06/23 11:40 Dose: Not Given Insulin Glargine (Lantus Per Unit Charge) 5 units SQ BID [facility] Stop: 04/04/23 20:59 Last Admin: 03/06/23 08:15 Dose: Not Given Isosorbide Mononitrate (Isosorbide [place] Extended Rel 30 Mg Tabcr) 30 mg PO QAM [facility] Stop: 04/05/23 08:59 Last Admin: 03/06/23 08:15 Dose: 30 mg Lamotrigine (Lamotrigine 100 Mg Tab) 100 mg PO BID [facility] Stop: 04/04/23 20:59 Last Admin: 03/06/23 08:15 Dose: 100 mg Latanoprost (Latanoprost 0.005% Op Soln 2.5 Ml Btl) 1 drops OP HS [facility] Stop: 04/04/23 20:59 Last Admin: 03/05/23 20:44 Dose: 1 drops Levetiracetam (Levetiracetam 500 Mg Tab) 2,000 mg PO BID [facility] Stop: 04/04/23 20:59 Last Admin: 03/06/23 08:15 Dose: 2,000 mg Losartan Potassium (Losartan Potassium 25 Mg Tab) 25 mg PO QAM [facility] Stop: 04/05/23 08:59 Last Admin: 03/06/23 08:16 Dose: 25 mg Magnesium Hydroxide (Magnesium Hydroxide Susp 30 Ml Udc) 30 ml PO Q12H PRN PRN Reason: Constipation Stop: 04/04/23 09:56 Melatonin (Melatonin 3 Mg Tab) 3 mg PO HS PRN PRN Reason: Sleep Stop: 04/04/23 23:02 Last Admin: 03/05/23 23:56 Dose: 3 mg Miscellaneous (Carbohydrates For Hypoglycemia ) 15 - 30 gm PO UD PRN PRN Reason: Hypoglycemia Protocol Stop: 04/04/23 09:56 Nitroglycerin (Nitroglycerin Sl 0.4 Mg/Tab Tab) 0.4 mg SL Q5M PRN PRN Reason: Chest Pain Stop: 04/04/23 09:56 Pantoprazole Sodium (Pantoprazole 40 Mg Tab) 40 mg PO BID [facility] Stop: 04/04/23 13:04 Last Admin: 03/06/23 08:16 Dose: 40 mg Spironolactone (Spironolactone 12.5 Mg Tab) 12.5 mg PO QAM [facility] Stop: 04/05/23 08:59 Last Admin: 03/06/23 08:16 Dose: 12.5 mg Vitamin D (Cholecalciferol 1,000 Units 25 Mcg Tab) 1,000 units PO QAM [facility] Stop: 04/05/23 08:59 Last Admin: 03/06/23 08:15 Dose: 1,000 units Pending Studies at Discharge: No Stand-Alone Forms: My [facility] Skilled Items Patient informed of condition?: No DNR: Yes Discharge Level of Care: Other Communicable Disease: No Discharge Prognosis: Stable Lines: Peripheral IV Urinary Catheter: No Medications and DC Order Prescriptions: Continued latanoprost 0.005 % Drops 1 drp OPHTHALMIC (EYE) HS atorvastatin 80 mg Tablet 80 mg PO PM hydrocodone-acetaminophen 5-325 mg Tablet 1 tab PO Q6 PRN (Reason: Pain) isosorbide mononitrate 30 mg Tablet Extended Release 24 Hr 30 mg PO QAM amlodipine 5 mg Tablet 2.5 mg PO QAM aspirin 81 mg Tablet,Delayed Release (Dr/Ec) 81 mg PO QAM warfarin 5 mg Tablet 5 mg PO USEASDIRECTD Rx Instructions: coumadin 7.5mg po every Tuesday and tuesday and 5mg po all other days. losartan 25 mg Tablet 25 mg PO QAM nitroglycerin 0.4 mg Tablet, Sublingual 0.4 mg sublingual UD PRN (Reason: Angina) Patient Comments: Patient states "I've never head to use this yet" levetiracetam 750 mg Tablet 1,500 mg PO BID albuterol sulfate [Ventolin HFA] 90 mcg/actuation Hfa Aerosol Inhaler 2 puff INHALATION Q4 PRN (Reason: Shortness Of Breath) lamotrigine [Lamictal] 100 mg Tablet 100 mg PO BID white petrolatum-mineral oil 83-15 % Ointment 1 applic OPHTHALMIC (EYE) Q4 PRN (Reason: Dry Eye(S)) fluticasone propion-salmeterol 250-50 mcg/dose blister with device 1 inh INHALATION BID atenolol 25 mg Tablet 12.5 mg PO QAM levetiracetam 500 mg tablet 500 mg PO BID furosemide 20 mg tablet 20 mg PO DAILY Patient Comments: takes 2 tablets mon/wed/fri and 1 tablet all other days brimonidine 0.2 % Drops 1 drp OPHTHALMIC (EYE) BID spironolactone 25 mg Tablet 12.5 mg PO QAM omeprazole 20 mg Tablet,Delayed Release (Dr/Ec) 20 mg PO QAM Jardiance 10 mg Tablet 10 mg PO QAM cholecalciferol (vitamin D3) [Vitamin D3] 25 mcg (1,000 unit) Tablet 25 mcg PO QAM amoxicillin 500 mg Capsule 2,000 mg PO UD PRN (Reason: prior to dental procedures) Discharge Orders: Discharge Order (Routine); Ordered 03/07/23 Ordered By: Apollo Montano Admission Data Admit Date/Time: 03/05/23 09:57 Attending Provider: Apollo Montano Admit Provider: Arline Nava Primary Care Provider: Domo Mcfarlane Other Providers: Edwar Hatfield ; Arline Nava Other Interventions: Discharge Summary Assessment (RN) Last Done: 03/07/23 13:45
[2023-03-07] MEDS: HEPARIN SODIUM/DEXTROSE 25,000 UNITS/500 ML BAG IV SCH (12:04)
[2023-03-07 16:29] LABS: Partial Thromboplastin Ratio 1.7
[2023-03-07 16:33] LABS: Partial Thromboplastin Time 47.9 Seconds (21.0-31.0)
--- NOTE | 2023-03-07 20:08 | Electrocardiogram Report ---
Test Reason : Blood Pressure : / mmHG Vent. Rate : 049 BPM Atrial Rate : 000 BPM P-R Int : 000 ms QRS Dur : 100 ms QT Int : 428 ms P-R-T Axes : 000 -59 068 degrees QTc Int : 386 ms Atrial fibrillation with slow ventricular response Left axis deviation Nonspecific ST abnormality Abnormal ECG When compared with ECG of 15-MAY-2022 18:08, No significant change Confirmed by Murray Moreno ([id number]) on 03/07/2023 8:07:41 PM Referred By: Confirmed By:Murray Moreno
--- NOTE | 2023-03-07 20:25 | Electrocardiogram Report ---
Test Reason : Blood Pressure : / mmHG Vent. Rate : 059 BPM Atrial Rate : 000 BPM P-R Int : 000 ms QRS Dur : 104 ms QT Int : 410 ms P-R-T Axes : 000 -58 081 degrees QTc Int : 405 ms Atrial fibrillation with slow ventricular response Left axis deviation Possible Septal infarct , age undetermined Possible Inferior infarct Abnormal ECG When compared with ECG of 05-MAR-2023 05:40, No significant change Confirmed by Murray Moreno ([id number]) on 03/07/2023 8:25:42 PM Referred By: Domo Mcfarlane Confirmed By:Murray Moreno
--- NOTE | 2023-03-07 22:39 | Electrocardiogram Report ---
Test Reason : Blood Pressure : / mmHG Vent. Rate : 060 BPM Atrial Rate : 340 BPM P-R Int : 000 ms QRS Dur : 106 ms QT Int : 430 ms P-R-T Axes : 000 -60 -55 degrees QTc Int : 430 ms Atrial fibrillation Left axis deviation Inferior infarct , age undetermined Abnormal ECG When compared with ECG of 05-MAR-2023 07:48, Criteria for Septal infarct are no longer Present T wave inversion now evident in Inferior leads Nonspecific T wave abnormality no longer evident in Lateral leads Confirmed by Murray Moreno ([id number]) on 03/07/2023 10:38:49 PM Referred By: Domo Mcfarlane Confirmed By:Murray Moreno
--- NOTE | 2023-03-07 23:36 | Electrocardiogram Report ---
Test Reason : Blood Pressure : / mmHG Vent. Rate : 056 BPM Atrial Rate : 312 BPM P-R Int : 000 ms QRS Dur : 110 ms QT Int : 388 ms P-R-T Axes : 000 -41 -54 degrees QTc Int : 374 ms Atrial fibrillation with slow ventricular response Left axis deviation Inferior infarct (cited on or before 06-MAR-2023) Abnormal ECG When compared with ECG of 06-MAR-2023 06:06, Nonspecific T wave abnormality now evident in Anterolateral leads Confirmed by Murray Moreno ([id number]) on 03/07/2023 11:36:21 PM Referred By: Domo Mcfarlane Confirmed By:Murray Moreno
--- NOTE | 2023-03-08 18:43 | Electrocardiogram Report ---
Test Reason : Blood Pressure : / mmHG Vent. Rate : 074 BPM Atrial Rate : 081 BPM P-R Int : 000 ms QRS Dur : 108 ms QT Int : 390 ms P-R-T Axes : 000 -56 -15 degrees QTc Int : 432 ms Atrial fibrillation with premature ventricular or aberrantly conducted complexes Left axis deviation possible Inferior infarct (cited on or before 06-MAR-2023) Abnormal ECG When compared with ECG of 07-MAR-2023 06:12, Nonspecific T wave abnormality no longer evident in Anterolateral leads QT has lengthened Confirmed by Shailesh Deluca ([id number]) on 03/08/2023 6:43:51 PM Referred By: Domo Mcfarlane Confirmed By:Boris Deluca
== END 2023-03-07 16:30 | disposition short-term general hospital (02) | DRG 281 ==
LOC: ED 05:35 → SUATTDRO 09:57 → 2E 09:57

== ENCOUNTER 2025-02-23 08:56 | Inpatient (IN) ==
--- NOTE | 2025-02-23 10:15 | XRay Report ---
RIGHT KNEE 2 VIEWS; RIGHT TIBIA AND FIBULA 2 VIEWS CLINICAL HISTORY: Right leg injury. FINDINGS: AP and crosstable lateral views of the right knee are obtained with AP and lateral views of the right tibia and fibula. The skeletal structures are osteopenic. There is no radiographic evidenc e of right tibial or fibular fracture. No fracture is seen at the knee joint. There is moderate trico mpartmental degenerative joint space narrowing. A small joint effusion is observed. There are margina l osteophytes and patellar enthesophytes. Mild soft tissue swelling is seen around the knee. The ankl e joint is grossly maintained. There are large dorsal and plantar heel spurs. Atherosclerotic calcifi cation is seen in the regional arteries. IMPRESSION: 1. There is no radiographic evidence of right tibial or fibular fracture. 2. Soft tissue swelling with no fracture identified at the knee joint. 3. Osteopenia and degenerative change as above. 4. Heel spurs. Electronically signed by: Kwaku Cook M.D. 02/23/2025 10:14 AM
--- NOTE | 2025-02-23 11:10 | Emergency Department Note ---
Impression & Plan Lisfranc dislocation ED Provider Note NAME: KODY SANTILLAN Sr AGE: 79 SEX: M : 1945 ARRIVES VIA: Walk-In INFORMANT: Patient, ED PROVIDER(S): Varsha Alexander MD CHIEF COMPLAINT: Right lower extremity pain HPI: This is a 79-year-old male presenting for right lower extremity pain. Patient states that he had a fall. Notes pain to his knee and above into the hip. He reports no nausea, vomiting, head injury, neck, chest or upper extremity injuries/pain. He does report history of cellulitis to the right foot. He had an x-ray done previously which showed a possible foreign body but unclear. Patient is on Eliquis for atrial fibrillation ROS: See above HPI for pertinent positives & negatives. A total of 10 systems reviewed and were otherwise negative. PAST MEDICAL HISTORY: See Below PAST SURGICAL HISTORY: See Below FAMILY HISTORY: See Below SOCIAL HISTORY: See Below HOME MEDICATIONS: See Below ALLERGIES: See Below VITALS: See Below PHYSICAL EXAMINATION: General: resting comfortably in no acute distress Head: Normocephalic and atraumatic Eyes: Normal inspection, extraocular muscles intact Ear, nose, throat: Normal external exam Neck: Normal range of motion Respiratory: lungs clear to auscultation bilaterally Cardiovascular: Regular rate/rhythm, no murmur GI: soft, nontender, no guarding or rebound Extremities: Mildly tender right knee/hip, 2+ pulses, swelling to the medial aspect of the midfoot Neuro: The patient awake and alert, appropriately conversive, no focal deficits, symmetric faces Skin: Warm, dry, and intact MEDICAL DECISION MAKING: This is a 79-year-old male presents for right lower extremity pain after fall. Will do screening x-ray to assess for traumatic injury. Patient has cellulitis being treated in the outpatient setting as well as a new swollen area to his midfoot. -X-ray of the hip, tib-fib, knee are reassuring without signs of osseous fracture or dislocation - X-ray of the foot reveals age-indeterminate homolateral Lisfranc type injury with lateral displacement of the 1st through 5th metatarsals. There is also deformity at the base of the first metatarsal - Patient reevaluated, states he does not member specific injury but does note 1 week history of excruciating foot pain. - Discussed with orthopedic PAManoj who will evaluate the patient - Discussed with inpatient team for admission for this Lisfranc injury Differential diagnosis: Cellulitis, abscess, fracture, dislocation Independent History obtained from: Daughter Diagnostics interpreted by me: ECG: None Cardiac Monitoring: An order was placed for continuous cardiac monitoring. The monitor shows a rate of 80 with sinus rhythm. Past Med/Surg History Problem List (Updated 02/24/25 @ 07:35 by Varsha Alexander MD) Lisfranc dislocation (Acute) Fracture of foot bone, right, closed Bradycardia (Acute) ACS (acute coronary syndrome) (Acute) NSTEMI (non-ST elevated myocardial infarction) Acute coronary syndrome Absence seizure disorder (Chronic) Prediabetes (Chronic) Hyperprolactinemia (Chronic) New onset a-fib (Acute) Acute chest pain (Acute) Lower GI bleed Dyslipidemia (Chronic) Transient global amnesia (Chronic) Central sleep apnea (Chronic) Encounter for pre-operative examination Adenomatous polyps CHF (congestive heart failure) (Acute) Hypoxia (Acute) Acute UTI (urinary tract infection) (Acute) PAF (paroxysmal atrial fibrillation) CAD (coronary artery disease) Seizure disorder GERD (gastroesophageal reflux disease) (Chronic) Hyperlipidemia Hypertension (Chronic) Medical History Permanent atrial fibrillation Diverticular disease ASCVD (arteriosclerotic cardiovascular disease) Osteoarthritis Bulging lumbar disc Difficulty swallowing Diabetes mellitus, type 2 Glaucoma Tremor of right hand Singh's palsy Seizure 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 Escobar--on keppra/lamictal On anticoagulant therapy warfarin daily Sleep apnea 2L oxygen via N/C On home oxygen therapy 2L N/C at Surgical History History of excision of pilonidal cyst History of colonoscopy with polypectomy History of arthroscopy of right knee History of tooth extraction all upper teeth History of wisdom tooth extraction History of tonsillectomy History of heart artery stent x2--last 2005 per pt 2 stents total History of cardiac cath x2---1 prior to 2005 ([place] and then [place] [facility] [place] Family History Sister Family history of diabetes mellitus Sister Family history of diabetes mellitus Brother Family history of esophageal cancer Other No family history of adverse response to anesthesia Social History Smoking Status: Never smoker Second Hand Exposure: No; Do You Dip or Chew Tobacco: No; Hx Alcohol Use: No Hx Substance Use: No Preferred Language: Yi Communication Ability: Effective Literary Writer Required: No Beliefs That Will Affect Care: None marital status: Current Living Situation: Family Current Living Situation Comment: son and DIL live with him How many Children do You have: 2 Other Information That Helps Us Care for You: No Feels Safe at Home: Yes Safety Concerns: Feels Safe At This Time Assistive Devices: Cane Allergies Allergies Allergy/AdvReac Type Severity Reaction Status Date / Time lisinopril Allergy Intermediate HIVES Verified 02/23/25 12:10 Home Meds Home Medications Medication Instructions Recorded Confirmed albuterol sulfate 90 mcg/actuation 2 puff inhalation Q4 PRN Shortness 06/18/19 02/23/25 aerosol inhaler (Ventolin HFA) Of Breath amlodipine 5 mg tablet 2.5 mg PO QAM 06/18/19 02/23/25 atorvastatin 80 mg tablet 80 mg PO QAM 06/18/19 02/23/25 isosorbide mononitrate 30 mg 30 mg PO QAM 06/18/19 02/23/25 tablet,extended release 24 hr lamotrigine 100 mg tablet 100 mg PO QAM 06/18/19 02/23/25 (Lamictal) latanoprost 0.005 % eye drops 1 drp ophthalmic (eye) HS 06/18/19 02/23/25 levetiracetam 750 mg tablet 1,500 mg PO BID 06/18/19 02/23/25 losartan 25 mg tablet 25 mg PO QAM 06/18/19 02/23/25 white petrolatum-mineral oil 83 1 applic ophthalmic (eye) Q4 PRN 06/18/19 02/23/25 %-15 % eye ointment Dry Eye(S) levetiracetam 500 mg tablet 500 mg PO BID 05/15/22 02/23/25 amoxicillin 500 mg capsule 2,000 mg PO UD PRN prior to dental 12/07/22 02/23/25 procedures cholecalciferol (vitamin D3) 25 25 mcg PO BID 12/07/22 02/23/25 mcg (1,000 unit) tablet (Vitamin D3) spironolactone 25 mg tablet 12.5 mg PO QAM 12/07/22 02/23/25 apixaban 5 mg tablet (Eliquis) 5 mg PO BID 02/23/25 02/23/25 brinzolamide 1 %-brimonidine 0.2 % 1 drp ophthalmic (eye) HS 02/23/25 02/23/25 eye drops,suspension (Simbrinza) cephalexin 500 mg capsule 500 mg PO QID 02/23/25 02/23/25 clopidogrel 75 mg tablet 75 mg PO QAM 02/23/25 02/23/25 cyanocobalamin (vitamin B-12) 1,000 mcg PO DAILY 02/23/25 02/23/25 1,000 mcg tablet (Vitamin B-12) duloxetine 30 mg capsule,delayed 30 mg PO HS 02/23/25 02/23/25 release empagliflozin 25 mg tablet 12.5 mg PO QAM 02/23/25 02/23/25 (Jardiance) furosemide 40 mg tablet 40 mg PO QAM 02/23/25 02/23/25 metoprolol succinate 25 mg 25 mg PO QAM 02/23/25 02/23/25 tablet,extended release 24 hr nitroglycerin 400 mcg/spray 400 mcg sublingual DIRECTED PRN 02/23/25 02/23/25 translingual Chest Pain Results & Data (ED) Vital Signs Vital Signs - 24 hr 02/23/25 08:59 02/23/25 10:50 02/23/25 10:56 Temperature 36.8 C Temperature Source Skin Pulse Rate 79 77 Pulse Rate [Apical] 73 Pulse Rhythm [Apical] Regular Pulse Strength [Apical] Normal Respiratory Rate 20 20 Respiratory Effort / Characteristics Non-Labored Spontaneous Non-Labored Spontaneous Respiratory Depth Normal Normal Respiratory Pattern Regular Blood Pressure 142/93 H Blood Pressure [Left Arm] 147/93 H Blood Pressure Mean 109 Blood Pressure Mean [Left Arm] 111 Pulse Oximetry 92 92 Oxygen Delivery Method Room Air Room Air Sepsis Recent Fever Within 48 Hours No Sepsis New/Unexplained Change in Mental Status N/A Sepsis Action Taken by Nursing No Action Required 02/23/25 12:00 Temperature Temperature Source Pulse Rate Pulse Rate [Apical] 73 Pulse Rhythm [Apical] Regular Pulse Strength [Apical] Normal Respiratory Rate 18 Respiratory Effort / Characteristics Non-Labored Spontaneous Respiratory Depth Normal Respiratory Pattern Regular Blood Pressure Blood Pressure [Left Arm] 156/96 H Blood Pressure Mean Blood Pressure Mean [Left Arm] 116 Pulse Oximetry 93 Oxygen Delivery Method Room Air Sepsis Recent Fever Within 48 Hours Sepsis New/Unexplained Change in Mental Status Sepsis Action Taken by Nursing Laboratory Data 02/23/25 15:34 02/23/25 15:34 Administered Medications Duloxetine HCl (Duloxetine Hcl 30 Mg Cap) 30 mg PO HS CRISTIANO Stop: 03/25/25 20:59 Last Admin: 02/23/25 20:58 Dose: 30 mg Documented By: MINGO Insulin Aspart (Insulin Aspart Per Unit Charge) 0 units SC ACHS [facility] Stop: 03/25/25 16:51 Last Admin: 02/23/25 20:48 Dose: Not Given Documented By: MINGO Co-signed By: ABDIFATAH Admin: 02/23/25 17:26 Dose: Not Given Documented By: AUDI Latanoprost (Latanoprost 0.005% Op Soln 2.5 Ml Btl) 1 drops OP HS CRISTIANO Stop: 03/25/25 20:59 Last Admin: 02/23/25 20:58 Dose: 1 drops Documented By: MINGO Levetiracetam (Levetiracetam 500 Mg Tab) 1,500 mg PO BID CRISTIANO Stop: 03/25/25 20:59 Last Admin: 02/23/25 20:58 Dose: 1,500 mg Documented By: MINGO Levetiracetam (Levetiracetam 500 Mg Tab) 500 mg PO BID CRISTIANO Stop: 03/25/25 20:59 Last Admin: 02/23/25 20:58 Dose: 500 mg Documented By: LRA Imaging Data Radiologist's Impression: Knee X-Ray 02/23/25 09:49 RIGHT KNEE 2 VIEWS; RIGHT TIBIA AND FIBULA 2 VIEWS CLINICAL HISTORY: Right leg injury. FINDINGS: AP and crosstable lateral views of the right knee are obtained with AP and lateral views of the right tibia and fibula. The skeletal structures are osteopenic. There is no radiographic evidence of right tibial or fibular fracture. No fracture is seen at the knee joint. There is moderate tricompartmental degenerative joint space narrowing. A small joint effusion is observed. There are marginal osteophytes and patellar enthesophytes. Mild soft tissue swelling is seen around the knee. The ankle joint is grossly maintained. There are large dorsal and plantar heel spurs. Atherosclerotic calcification is seen in the regional arteries. IMPRESSION: 1. There is no radiographic evidence of right tibial or fibular fracture. 2. Soft tissue swelling with no fracture identified at the knee joint. 3. Osteopenia and degenerative change as above. 4. Heel spurs. Electronically signed by: Kwaku Cook M.D. 02/23/2025 10:14 AM Tibia/Fibula X-Ray 02/23/25 09:49 RIGHT KNEE 2 VIEWS; RIGHT TIBIA AND FIBULA 2 VIEWS CLINICAL HISTORY: Right leg injury. FINDINGS: AP and crosstable lateral views of the right knee are obtained with AP and lateral views of the right tibia and fibula. The skeletal structures are osteopenic. There is no radiographic evidence of right tibial or fibular fracture. No fracture is seen at the knee joint. There is moderate tricompartmental degenerative joint space narrowing. A small joint effusion is observed. There are marginal osteophytes and patellar enthesophytes. Mild soft tissue swelling is seen around the knee. The ankle joint is grossly maintained. There are large dorsal and plantar heel spurs. Atherosclerotic calcification is seen in the regional arteries. IMPRESSION: 1. There is no radiographic evidence of right tibial or fibular fracture. 2. Soft tissue swelling with no fracture identified at the knee joint. 3. Osteopenia and degenerative change as above. 4. Heel spurs. Electronically signed by: Kwaku Cook M.D. 02/23/2025 10:14 AM Discharge Plan Visit Data Chief Complaint: Leg Injury/Pain Stated Complaint: R LEG PAIN, UNABLE TO BEAR WEIGHT ED Provider: Varsha Alexander Discharge Problem: Lisfranc dislocation Patient Disposition: Admitted As Inpatient Condition: Fair Discharge Instructions Interventions: ED Discharge Assessment Last Done: 02/23/25 16:37 Discharge Problem: Lisfranc dislocation Qualifiers: Encounter type: initial encounter Laterality: right Qualified Code(s): S93.324A - Dislocation of tarsometatarsal joint of right foot, initial encounter
--- NOTE | 2025-02-23 11:41 | XRay Report ---
SINGLE VIEW PELVIS; 2 VIEWS RIGHT HIP CLINICAL HISTORY: Right hip pain. FINDINGS: An AP view of the pelvis is obtained with AP and frog-leg views of the right hip. Correlati on is made with pelvic CT dated 02/24/2016. The skeletal structures are osteopenic. There is no radiog raphic evidence of acute fracture involving the hips or bony pelvis. Moderate arthritic change and macie int space narrowing is seen in the hips. There is degenerative sclerosis of the sacroiliac joints. Bailey mbosacral spondylosis is partially imaged. The overlying soft tissues are within normal limits. There is atherosclerotic calcification of the femoral arteries. IMPRESSION: No acute bony abnormality is identified. Electronically signed by: Kwaku Cook M.D. 02/23/2025 11:40 AM
--- NOTE | 2025-02-23 12:01 | XRay Report ---
RIGHT FOOT 2 VIEWS CLINICAL HISTORY: Right foot pain. Cellulitis. Foreign body assessment. FINDINGS: AP and lateral views of the right foot are obtained. No prior studies are available for flory geiger at the time of dictation. The skeletal structures are osteopenic. There is evidence of a Lisf ranc type injury with lateral subluxation of the first through fifth metatarsals. There is also super ior subluxation of the base of the first metatarsal at the first tarsometatarsal joint. There is defo rmity at the base of the first metatarsal which may represent age-indeterminate fracture. Heterogeneo us sclerotic change is suggested within the anterior aspect of the medial cuneiform. There are large dorsal and plantar heel spurs. Soft tissue swelling is seen throughout the foot. Atherosclerotic calc ification is observed in the regional arteries. No radiodense foreign body is identified. IMPRESSION: 1. Age-indeterminate homolateral Lisfranc type injury with lateral displacement of the first through fifth metatarsals as above. Orthopedic evaluation will be required. 2. Deformity at the base of the first metatarsal may represent age indeterminate fracture. 3. Diffuse soft tissue edema. 4. No radiodense foreign body is identified. ACT 112: Positive. There are findings on this exam that require communication between the performing entity and the patient following Patient Test Result Information Act ([place] Act 112) guidelines. Electronically signed by: Kwaku Cook M.D. 02/23/2025 11:59 AM
--- NOTE | 2025-02-23 13:59 | History & Physical Report ---
Date of Service February 23, 2025 Assessment & Plan (1) Fracture of foot bone, right, closed: Plan 79M with PMH including Afib on eliquis, CAD s/p CABG on plavix, HFpEF, seizure disorder, NIDDM, HTN, HLD, ROBLES not on cpap who presents with R foot pain. #R foot pain -X rays showing R Lisfranc type injury with lateral displacement of the first through fifth metatarsals -Denies trauma but has peripheral neuropathy in his feet -Low suspicion for cellulitis at this time Plan -For OR. appreciate surgical input. Timing TBD -Hold home plavix and eliquis. Last dose evening 02/22 -Pain control -PT/OT after OR #Pre operative risk assessment -RCRI: 2, indicating a 5% risk of major cardiac event -METS: 2. no chest pain with exertion -Significant cardiac history but appears euvolemic -Medically and pharmacologically optimized for surgery -Further cardiac testing is unlikely to reduce surgical Risk -Proceed with surgery if indicated #PAF -Rate controlled on Toprol -Holding eliquis. resume CARLOS -Risks of stroke d/w patient and daughter #HFpEF -Trace b/l LE which daughter states is his baseline -No resp complaints. no orthopnea -TTE 03/06/23 reviewed, normal EF. no significant valvular abnormalities -Continue home lasix and GDMT #CAD -S/p CABG -Holding plavix -Continue high intensity statin -No chest pain #Seizure disorder -Last seizure 2010 per daughter -Follows with neuro as OP -Continue home lamictal and keppra #NIDDM -Continue SGLT2 -SSI BGM ACHS #History of leukocytosis and polycythemia -Recently seen by [facility] hematology and no major issues found per daughter -Labs today pending Greater than 70 minutes were spent discussing with ED, reviewing chart, labs, imaging, talking with patient, placing orders and writing documentation History of Present Illness Chief Complaint: R foot pain Primary Care Provider: Domo Mcfarlane MD Mr. Fuchs is a very pleasant 79M with PMH including Afib on eliquis, CAD s/p CABG on plavix, HFpEF, seizure disorder, NIDDM, HTN, HLD, ROBLES not on cpap who presents with R foot pain. He lives at home with his daughter. Started one week ago. There was erythema and he was started [facility] do[facility] without any improvement. He was then transitioned to keflex without improvement as well. He denies any falls before onset of pain and erythema but does endorse neuropathy in his feet. Otherwise he feels well and denies any complaints. Patient denies F/C, CP, palpitations, SOB, dyspnea, abd pain, N/V/D ED vitals stable Labs: pending Imaging: R foot: Lisfranc type injury with lateral displacement of the first through fifth metatarsals ED spoke with ortho SONJA who recommended he be admitted for surgery Allergies Allergy/AdvReac Type Severity Reaction Status Date / Time lisinopril Allergy Intermediate HIVES Verified 02/23/25 12:10 Home Medications Medication Instructions Recorded Confirmed Type albuterol sulfate 90 mcg/actuation 2 puff inhalation Q4 PRN Shortness 06/18/19 02/23/25 History aerosol inhaler (Ventolin HFA) Of Breath amlodipine 5 mg tablet 2.5 mg PO QAM 06/18/19 02/23/25 History atorvastatin 80 mg tablet 80 mg PO QAM 06/18/19 02/23/25 History isosorbide mononitrate 30 mg 30 mg PO QAM 06/18/19 02/23/25 History tablet,extended release 24 hr lamotrigine 100 mg tablet 100 mg PO QAM 06/18/19 02/23/25 History (Lamictal) latanoprost 0.005 % eye drops 1 drp ophthalmic (eye) HS 06/18/19 02/23/25 History levetiracetam 750 mg tablet 1,500 mg PO BID 06/18/19 02/23/25 History losartan 25 mg tablet 25 mg PO QAM 06/18/19 02/23/25 History white petrolatum-mineral oil 83 1 applic ophthalmic (eye) Q4 PRN 06/18/19 02/23/25 History %-15 % eye ointment Dry Eye(S) levetiracetam 500 mg tablet 500 mg PO BID 05/15/22 02/23/25 History amoxicillin 500 mg capsule 2,000 mg PO UD PRN prior to dental 12/07/22 02/23/25 History procedures cholecalciferol (vitamin D3) 25 25 mcg PO BID 12/07/22 02/23/25 History mcg (1,000 unit) tablet (Vitamin D3) spironolactone 25 mg tablet 12.5 mg PO QAM 12/07/22 02/23/25 History apixaban 5 mg tablet (Eliquis) 5 mg PO BID 02/23/25 02/23/25 History brinzolamide 1 %-brimonidine 0.2 % 1 drp ophthalmic (eye) HS 02/23/25 02/23/25 History eye drops,suspension (Simbrinza) cephalexin 500 mg capsule 500 mg PO QID 02/23/25 02/23/25 History clopidogrel 75 mg tablet 75 mg PO QAM 02/23/25 02/23/25 History cyanocobalamin (vitamin B-12) 1,000 mcg PO DAILY 02/23/25 02/23/25 History 1,000 mcg tablet (Vitamin B-12) duloxetine 30 mg capsule,delayed 30 mg PO HS 02/23/25 02/23/25 History release empagliflozin 25 mg tablet 12.5 mg PO QAM 02/23/25 02/23/25 History (Jardiance) furosemide 40 mg tablet 40 mg PO QAM 02/23/25 02/23/25 History metoprolol succinate 25 mg 25 mg PO QAM 02/23/25 02/23/25 History tablet,extended release 24 hr nitroglycerin 400 mcg/spray 400 mcg sublingual DIRECTED PRN 02/23/25 02/23/25 History translingual Chest Pain Past Med/Surg History Problem List (Updated 02/23/25 @ 14:06 by Edgard Larry DO) Fracture of foot bone, right, closed Bradycardia (Acute) ACS (acute coronary syndrome) (Acute) NSTEMI (non-ST elevated myocardial infarction) Acute coronary syndrome Absence seizure disorder (Chronic) Prediabetes (Chronic) Hyperprolactinemia (Chronic) New onset a-fib (Acute) Acute chest pain (Acute) Lower GI bleed Dyslipidemia (Chronic) Transient global amnesia (Chronic) Central sleep apnea (Chronic) Encounter for pre-operative examination Adenomatous polyps CHF (congestive heart failure) (Acute) Hypoxia (Acute) Acute UTI (urinary tract infection) (Acute) PAF (paroxysmal atrial fibrillation) CAD (coronary artery disease) Seizure disorder GERD (gastroesophageal reflux disease) (Chronic) Hyperlipidemia Hypertension (Chronic) Medical History Permanent atrial fibrillation Diverticular disease ASCVD (arteriosclerotic cardiovascular disease) Osteoarthritis Bulging lumbar disc Difficulty swallowing Diabetes mellitus, type 2 Glaucoma Tremor of right hand Singh's palsy Seizure 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 Escobar--on keppra/lamictal On anticoagulant therapy warfarin daily Sleep apnea 2L oxygen via N/C On home oxygen therapy 2L N/C at Surgical History History of excision of pilonidal cyst History of colonoscopy with polypectomy History of arthroscopy of right knee History of tooth extraction all upper teeth History of wisdom tooth extraction History of tonsillectomy History of heart artery stent x2--last 2005 per pt 2 stents total History of cardiac cath x2---1 prior to 2005 ([place]) and then 2005 (@ [facility] [place] Family History Sister Family history of diabetes mellitus Sister Family history of diabetes mellitus Brother Family history of esophageal cancer Other No family history of adverse response to anesthesia Social History Smoking Status: Never smoker Second Hand Exposure: No; Do You Dip or Chew Tobacco: No; Hx Alcohol Use: Yes Alcohol type: hard liquor Hx Substance Use: No Preferred Language: Faroese Communication Ability: Effective Patient Services Manager Required: No Beliefs That Will Affect Care: None marital status: Current Living Situation: Spouse Current Living Situation Comment: lives with How many Children do You have: 2 Feels Safe at Home: Yes Assistive Devices: Cane, Denture - Upper, Glasses and Oxygen - at Night Review of Systems Review of Systems: 14 point ROS negative unless stated in H PI Physical Exam Physical Exam: Vitals and labs reviewed General: Well appearing, NAD HEENT: EOMI, PERRLA Neck: Supple Cardiac: irregular rhythm. regular rate. no rubs gallops. systolic murmur Lungs: CTA no rhonchi wheezing or rales Abd: S NT ND BS positive : Defferred MSK: R foot erythema and TTP over metatarsals. ROM limited by pain. Ext: trace b/l LE Edema cyanosis Skin: Warm, Dry Neuro: AOx3 No focal deficits. Psych: Normal Mood Results & Data Results & Data Vital Signs (Past 12 Hours) Vital Signs Temp Pulse Pulse Resp BP BP Pulse Ox 02/23/25 12:00 73 18 156/96 H 93 02/23/25 10:56 73 20 147/93 H 92 02/23/25 10:50 77 02/23/25 08:59 36.8 C 79 20 142/93 H 92 O2 Del Method 02/23/25 12:00 Room Air 02/23/25 10:56 Room Air 02/23/25 10:50 02/23/25 08:59 Room Air Code Status & VTE Plan Code Status full
[2025-02-23 15:52] LABS: Hematocrit (blood only) 51.7 % (42.0-52.0); Hemoglobin 17.2 g/dl (14.0-18.0); Mean Corpuscular Hemoglobin 29.2 pg (25.0-34.0); Mean Corpuscular Volume 87.8 fL (80.0-100.0); Platelet Count 230 K/uL (130-400); RDW Standard Deviation 45.4 fL (36.4-46.3); Red Blood Count 5.89 M/uL (4.70-6.10); White Blood Count 20.81 K/ul (4.8-10.8)
[2025-02-23 16:13] LABS: Anion Gap 5.0 (3-11); Blood Urea Nitrogen 19.0 mg/dl (6-23); Calcium 9.9 mg/dl (8.6-10.3); Carbon Dioxide 33.0 mmol/L (21-32); Chloride 99.0 mmol/L (98-107); Creatinine Clr Calc Pharmacy 109.3 ml/min; Glucose 138.0 mg/dl (70-99(Fasting)); Potassium 4.8 mmol/L (3.5-5.1); Sodium 137.0 mmol/L (136-145)
[2025-02-23 16:21] LABS: INR 1.1 (0.9-1.1); Prothrombin Time 11.8 Seconds (9.0-12.0)
[2025-02-23 16:49] LABS: Immature Granulocytes # (auto) 0.44 K/uL (0.01-0.20); Immature Granulocytes % (auto) 2.1 %
[2025-02-23] MEDS ORDERED: ONDANSETRON INJ 2 MG/ML 2 ML VIAL IV PRN (16:52)
[2025-02-23] MEDS ORDERED: CARBOHYDRATES FOR HYPOGLYCEMIA PO PRN (16:52)
[2025-02-23] MEDS ORDERED: GLUCAGON FOR INJ 1 MG VIAL SQ PRN (16:52)
[2025-02-23] MEDS ORDERED: DEXTROSE 50% 50 ML SYRINGE IV PRN (16:52)
[2025-02-23] MEDS ORDERED: POLYETHYLENE (MIRALAX) 17 GM PACK PO PRN (16:52)
[2025-02-23] MEDS ORDERED: GLUCOSE 40% GEL 15 GM TUBE PO PRN (16:52)
[2025-02-23] MEDS ORDERED: ACETAMINOPHEN 325 MG TAB PO PRN (16:52)
[2025-02-23] MEDS ORDERED: GLUCOSE 10 TAB/TUBE PO PRN (16:52)
[2025-02-23] MEDS: INSULIN ASPART PER UNIT CHARGE SC SCH (17:26)
[2025-02-23] MEDS: levETIRAcetam 500 MG TAB PO SCH ×2 (20:58)
[2025-02-23] MEDS: LATANOPROST 0.005% OP SOLN 2.5 ML BTL OP SCH (20:58)
[2025-02-24] MEDS: LOSARTAN POTASSIUM 25 MG TAB PO SCH (08:14)
[2025-02-24] MEDS: lamoTRIgine 100 MG TAB PO SCH (08:15)
[2025-02-24] MEDS: METOPROLOL SUCC 25MG EXT REL TAB PO SCH (08:16)
[2025-02-24] MEDS: ISOSORBIDE MONO EXTENDED REL 30 MG TABCR PO SCH (08:18)
[2025-02-24] MEDS: FUROSEMIDE 40 MG TAB PO SCH (08:18)
[2025-02-24] MEDS: ATORVASTATIN 40 MG TAB PO SCH (08:19)
[2025-02-24] MEDS: SPIRONOLACTONE 12.5 MG TAB PO SCH (08:19)
[2025-02-24] MEDS: EMPAGLIFLOZIN 25 MG TAB PO SCH (08:19)
--- NOTE | 2025-02-24 08:30 | Orthopedic Consultation ---
Date of Service February 24, 2025 Assessment & Plan (1) Fracture of foot bone, right, closed: Update: Spoke with Dr Gross, plan to keep patient overnight for possible OR tomorrow. NPO midnight. Splint applied. CT foot pending. * Case/imaging reviewed and discussed with Dr Lassiter * Imaging and exam consistent with acute/subacute Lis Franc injury * Recommend evaluation and further management by Podiatry team, Dr Gross notified * No plan for OR today * Ok for diet * Splint to be applied * CT foot ordered for OR planning * Weight bearing status: NWB RLE * Daily treatment: Physical Therapy/ Occupational Therapy per protocol * Pain control * Disposition: TBD * Remainder care per primary team * Keep overnight for eval with Dr Gross and possible OR tomorrow. History of Present Illness Reason for Consultation: RIght foot pain Requesting Physician: . Attending Physician: Arline Nava MD .Patient is a 79 y/o male with Right foot pain. PMH including Afib on eliquis, CAD s/p CABG on plavix, HFpEF, seizure disorder, NIDDM, HTN, HLD, ROBLES not on cpap. Presents to hospital with ongoing right foot pain. Reports right foot pain for approximately 1 week, unsure regarding specific injury or trauma. Baseline neuropathy, limited pain at rest but increased pain and difficulty with any ambulation. Uses a cane at home. Due to pain presents to ED for work-up. Current workup including XR right foot demonstrating Lis Franc injury. Splint was not applied by ED team. Admitted to hospital medicine team secondary to ambulatory disfunction. Orthopedics consulted for management recommendations. At time of exam patient lying comfortably in bed, no acute distress. Reports minimal foot pain at rest but increased pain with attempted ambulation. Reports baseline tingling and numbness of foot from his neuropathy. No skin breakdown at area of fracture. Allergies Allergy/AdvReac Type Severity Reaction Status Date / Time lisinopril Allergy Intermediate HIVES Verified 02/23/25 12:10 Home Medications Medication Instructions Recorded Confirmed Type albuterol sulfate 90 mcg/actuation 2 puff inhalation Q4 PRN Shortness 06/18/19 02/23/25 History aerosol inhaler (Ventolin HFA) Of Breath amlodipine 5 mg tablet 2.5 mg PO QAM 06/18/19 02/23/25 History atorvastatin 80 mg tablet 80 mg PO QAM 06/18/19 02/23/25 History isosorbide mononitrate 30 mg 30 mg PO QAM 06/18/19 02/23/25 History tablet,extended release 24 hr lamotrigine 100 mg tablet 100 mg PO QAM 06/18/19 02/23/25 History (Lamictal) latanoprost 0.005 % eye drops 1 drp ophthalmic (eye) HS 06/18/19 02/23/25 History levetiracetam 750 mg tablet 1,500 mg PO BID 06/18/19 02/23/25 History losartan 25 mg tablet 25 mg PO QAM 06/18/19 02/23/25 History white petrolatum-mineral oil 83 1 applic ophthalmic (eye) Q4 PRN 06/18/19 02/23/25 History %-15 % eye ointment Dry Eye(S) levetiracetam 500 mg tablet 500 mg PO BID 05/15/22 02/23/25 History amoxicillin 500 mg capsule 2,000 mg PO UD PRN prior to dental 12/07/22 02/23/25 History procedures cholecalciferol (vitamin D3) 25 25 mcg PO BID 12/07/22 02/23/25 History mcg (1,000 unit) tablet (Vitamin D3) spironolactone 25 mg tablet 12.5 mg PO QAM 12/07/22 02/23/25 History apixaban 5 mg tablet (Eliquis) 5 mg PO BID 02/23/25 02/23/25 History brinzolamide 1 %-brimonidine 0.2 % 1 drp ophthalmic (eye) HS 02/23/25 02/23/25 History eye drops,suspension (Simbrinza) cephalexin 500 mg capsule 500 mg PO QID 02/23/25 02/23/25 History clopidogrel 75 mg tablet 75 mg PO QAM 02/23/25 02/23/25 History cyanocobalamin (vitamin B-12) 1,000 mcg PO DAILY 02/23/25 02/23/25 History 1,000 mcg tablet (Vitamin B-12) duloxetine 30 mg capsule,delayed 30 mg PO HS 02/23/25 02/23/25 History release empagliflozin 25 mg tablet 12.5 mg PO QAM 02/23/25 02/23/25 History (Jardiance) furosemide 40 mg tablet 40 mg PO QAM 02/23/25 02/23/25 History metoprolol succinate 25 mg 25 mg PO QAM 02/23/25 02/23/25 History tablet,extended release 24 hr nitroglycerin 400 mcg/spray 400 mcg sublingual DIRECTED PRN 02/23/25 02/23/25 History translingual Chest Pain Past Med/Surg History Problem List (Updated 02/24/25 @ 07:35 by Varsha Alexander MD) Lisfranc dislocation (Acute) Fracture of foot bone, right, closed Bradycardia (Acute) ACS (acute coronary syndrome) (Acute) NSTEMI (non-ST elevated myocardial infarction) Acute coronary syndrome Absence seizure disorder (Chronic) Prediabetes (Chronic) Hyperprolactinemia (Chronic) New onset a-fib (Acute) Acute chest pain (Acute) Lower GI bleed Dyslipidemia (Chronic) Transient global amnesia (Chronic) Central sleep apnea (Chronic) Encounter for pre-operative examination Adenomatous polyps CHF (congestive heart failure) (Acute) Hypoxia (Acute) Acute UTI (urinary tract infection) (Acute) PAF (paroxysmal atrial fibrillation) CAD (coronary artery disease) Seizure disorder GERD (gastroesophageal reflux disease) (Chronic) Hyperlipidemia Hypertension (Chronic) Medical History Permanent atrial fibrillation Diverticular disease ASCVD (arteriosclerotic cardiovascular disease) Osteoarthritis Bulging lumbar disc Difficulty swallowing Diabetes mellitus, type 2 Glaucoma Tremor of right hand Singh's palsy Seizure 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 Escobar--on keppra/lamictal On anticoagulant therapy warfarin daily Sleep apnea 2L oxygen via N/C On home oxygen therapy 2L N/C at hs Surgical History History of excision of pilonidal cyst History of colonoscopy with polypectomy History of arthroscopy of right knee History of tooth extraction all upper teeth History of wisdom tooth extraction History of tonsillectomy History of heart artery stent x2--last 2005 per pt 2 stents total History of cardiac cath x2---1 prior to 2005 ([place]) and then 2005 (@ [facility] [place]) Family History Sister Family history of diabetes mellitus Sister Family history of diabetes mellitus Brother Family history of esophageal cancer Other No family history of adverse response to anesthesia Social History Smoking Status: Never smoker Second Hand Exposure: No; Do You Dip or Chew Tobacco: No; Hx Alcohol Use: No Hx Substance Use: No Preferred Language: Kyrgyz Communication Ability: Effective Aluminum Siding Applicator Required: No Beliefs That Will Affect Care: None marital status: Current Living Situation: Family Current Living Situation Comment: son and DIL live with him How many Children do You have: 2 Other Information That Helps Us Care for You: No Feels Safe at Home: Yes Safety Concerns: Feels Safe At This Time Assistive Devices: Cane Review of Systems All systems reviewed & are unremarkable except as noted in HPI & below. Physical Exam . * General: Alert and oriented, no acute distress * Constitutional: well-developed, well-nourished. * Respiratory: Normal respiratory effort, no distress * Gastrointestinal: No tenderness to palpation, no rigidity or guarding. * Skin: No rash or lesion. * Neurologic: Grossly normal * Musculoskeletal: Right foot with obvious deformity at the 1st MTP joint, no skin breakdown or open wounds at area of deformity. Otherwise no overlying skin changes noted. TTP at fracture site/ 1st MTP joint region. Otherwise no tenderness throughout the lower leg or foot. AROM ankle flexion/extension, and toe ROM intact. Sensation intact plantar/dorsal foot. Brisk capillary refill. Results & Data Results & Data Laboratory Results . Diagnostic Findings . Knee X-Ray 02/23/25 09:49 RIGHT KNEE 2 VIEWS; RIGHT TIBIA AND FIBULA 2 VIEWS CLINICAL HISTORY: Right leg injury. FINDINGS: AP and crosstable lateral views of the right knee are obtained with AP and lateral views of the right tibia and fibula. The skeletal structures are osteopenic. There is no radiographic evidence of right tibial or fibular fracture. No fracture is seen at the knee joint. There is moderate tricompartmental degenerative joint space narrowing. A small joint effusion is observed. There are marginal osteophytes and patellar enthesophytes. Mild soft tissue swelling is seen around the knee. The ankle joint is grossly maintained. There are large dorsal and plantar heel spurs. Atherosclerotic calcification is seen in the regional arteries. IMPRESSION: 1. There is no radiographic evidence of right tibial or fibular fracture. 2. Soft tissue swelling with no fracture identified at the knee joint. 3. Osteopenia and degenerative change as above. 4. Heel spurs. Electronically signed by: Kwaku Cook M.D. 02/23/2025 10:14 AM Tibia/Fibula X-Ray 02/23/25 09:49 RIGHT KNEE 2 VIEWS; RIGHT TIBIA AND FIBULA 2 VIEWS CLINICAL HISTORY: Right leg injury. FINDINGS: AP and crosstable lateral views of the right knee are obtained with AP and lateral views of the right tibia and fibula. The skeletal structures are osteopenic. There is no radiographic evidence of right tibial or fibular fracture. No fracture is seen at the knee joint. There is moderate tricompartmental degenerative joint space narrowing. A small joint effusion is observed. There are marginal osteophytes and patellar enthesophytes. Mild soft tissue swelling is seen around the knee. The ankle joint is grossly maintained. There are large dorsal and plantar heel spurs. Atherosclerotic calcification is seen in the regional arteries. IMPRESSION: 1. There is no radiographic evidence of right tibial or fibular fracture. 2. Soft tissue swelling with no fracture identified at the knee joint. 3. Osteopenia and degenerative change as above. 4. Heel spurs. Electronically signed by: Kwaku Cook M.D. 02/23/2025 10:14 AM Foot X-Ray 02/23/25 10:52 RIGHT FOOT 2 VIEWS CLINICAL HISTORY: Right foot pain. Cellulitis. Foreign body assessment. FINDINGS: AP and lateral views of the right foot are obtained. No prior studies are available for comparison at the time of dictation. The skeletal structures are osteopenic. There is evidence of a Lisfranc type injury with lateral subluxation of the first through fifth metatarsals. There is also superior subluxation of the base of the first metatarsal at the first tarsometatarsal joint. There is deformity at the base of the first metatarsal which may represent age-indeterminate fracture. Heterogeneous sclerotic change is suggested within the anterior aspect of the medial cuneiform. There are large dorsal and plantar heel spurs. Soft tissue swelling is seen throughout the foot. Atherosclerotic calcification is observed in the regional arteries. No radiodense foreign body is identified. IMPRESSION: 1. Age-indeterminate homolateral Lisfranc type injury with lateral displacement of the first through fifth metatarsals as above. Orthopedic evaluation will be required. 2. Deformity at the base of the first metatarsal may represent age indeterminate fracture. 3. Diffuse soft tissue edema. 4. No radiodense foreign body is identified. ACT 112: Positive. There are findings on this exam that require communication between the performing entity and the patient following Patient Test Result Information Act ([place] Act 112) guidelines. Electronically signed by: Kwaku Cook M.D. 02/23/2025 11:59 AM Hip/Pelvis X-Ray 02/23/25 10:52 SINGLE VIEW PELVIS; 2 VIEWS RIGHT HIP CLINICAL HISTORY: Right hip pain. FINDINGS: An AP view of the pelvis is obtained with AP and frog-leg views of the right hip. Correlation is made with pelvic CT dated 02/24/2016. The skeletal structures are osteopenic. There is no radiographic evidence of acute fracture involving the hips or bony pelvis. Moderate arthritic change and joint space narrowing is seen in the hips. There is degenerative sclerosis of the sacroiliac joints. Lumbosacral spondylosis is partially imaged. The overlying soft tissues are within normal limits. There is atherosclerotic calcification of the femoral arteries. IMPRESSION: No acute bony abnormality is identified. Electronically signed by: Kwaku Cook M.D. 02/23/2025 11:40 AM PG Care Time/CCT Total # of Minutes Spent Total Time Spent with Patient: Total time spent is greater than 50% in coordination of care (as documented) at patient's floor/unit and/or counseling patient: [place] [address] IN/OBS CONSULT LVL 4,60M Patient Type New Medical Decision Making Moderate Complexity Diagnoses Fracture of foot bone, right, closed S92.901A
[2025-02-24 09:33] LABS: Hematocrit (blood only) 49.3 % (42.0-52.0); Hemoglobin 16.3 g/dl (14.0-18.0); Mean Corpuscular Hemoglobin 29.3 pg (25.0-34.0); Mean Corpuscular Volume 88.5 fL (80.0-100.0); Platelet Count 207 K/uL (130-400); RDW Standard Deviation 45.2 fL (36.4-46.3); Red Blood Count 5.57 M/uL (4.70-6.10); White Blood Count 15.13 K/ul (4.8-10.8)
[2025-02-24] MEDS: APIXABAN 5 MG TABLET PO SCH (09:57)
[2025-02-24] MEDS: CLOPIDOGREL BISULFATE 75 MG TAB PO SCH (09:58)
--- NOTE | 2025-02-24 13:53 | Hospitalist Progress Note ---
Date of Service February 24, 2025 Assessment & Plan (1) Fracture of foot bone, right, closed: Plan 79M with PMH including Afib on eliquis, CAD s/p CABG on plavix, HFpEF, seizure disorder, NIDDM, HTN, HLD, ROBLES not on cpap who presents with R foot pain. #R foot pain -X rays showing R Lisfranc type injury with lateral displacement of the first through fifth metatarsals -Denies trauma but has peripheral neuropathy in his feet -Low suspicion for cellulitis at this time Plan -For OR likely kevin. -Hold home plavix and eliquis. Last dose am 02/23 -Pain control -PT/OT after OR #Pre operative risk assessment -RCRI: 2, indicating a 5% risk of major cardiac event -METS: 2. no chest pain with exertion -Significant cardiac history but appears euvolemic -Medically and pharmacologically optimized for surgery -Further cardiac testing is unlikely to reduce surgical Risk -Proceed with surgery if indicated #PAF -Rate controlled on Toprol -Holding eliquis. resume CARLOS -Risks of stroke d/w patient #HFpEF -Trace b/l LE which daughter states is his baseline -No resp complaints. no orthopnea -TTE 03/06/23 reviewed, normal EF. no significant valvular abnormalities -Continue home lasix and GDMT #CAD -S/p CABG -Holding plavix -Continue high intensity statin -No chest pain #Seizure disorder -Last seizure 2010 per daughter -Follows with neuro as OP -Continue home lamictal and keppra #NIDDM: -Continue SGLT2. SSI BGM ACHS #History of leukocytosis and polycythemia: -Recently seen by [place] hematology and no major issues found per daughter Admission and Anticipated Discharge Date Admission Date: February 23, 2025 Subjective Patient was seen and examined at bedside. Patient was lying in bed, on room air, NAD, resting comfortably. Patient reports right lower extremity pain under control with pain medication. Patient denies fever/chest pain/shortness of breath/cough. Physical Exam Physical Exam: General: Well appearing, NAD HEENT: EOMI, PERRLA Neck: Supple Cardiac: irregular rhythm. regular rate. no rubs gallops. systolic murmur Lungs: CTA no rhonchi wheezing or rales Abd: S NT ND BS positive : Deferred MSK: R foot in dressing. ROM limited by pain. Ext: trace b/l LE Edema cyanosis Skin: Warm, Dry Neuro: AOx3 No focal deficits. Psych: Normal Mood Results & Data Results & Data Vital Signs (Past 12 Hours) Vital Signs Temp Pulse Resp BP Pulse Ox O2 Del Method O2 Flow Rate 02/24/25 07:07 36.6 C 80 20 152/99 H 96 Nasal Cannula 2
--- NOTE | 2025-02-24 14:57 | CT Scan Report ---
CT SCAN OF THE RIGHT FOOT WITHOUT IV CONTRAST CLINICAL HISTORY: Lisfranc injury. COMPARISON STUDY: Radiographs of the right foot dated 02/23/2025. TECHNIQUE: CT scan of the right foot is performed from the ankle to the base of the foot. Images are reviewed in the axial, sagittal, and coronal planes. IV contrast was not administered for this examin ation. 3-D reformats are created and assessed. A dose lowering technique was utilized adhering to the principles of ALARA. CT DOSE: 357.61 mGy.cm FINDINGS: The skeletal structures are osteopenic. There is no clear CT evidence of acute fracture. Th ere is an age indeterminant but chronic appearing homolateral Lisfranc type injury with lateral displ acement of the first through fifth metatarsals. There is approximately 11 mm of lateral displacement of the base of the first metatarsal, and an approximately 9 mm gap between the base of the first and second metatarsals. There is lateral displacement of the lateral cuneiform and the third metatarsal. The third tarsometatarsal articulation appears normally aligned. There is proximal migration of the s econd metatarsal which is located between the anterior aspect of the middle and lateral cuneiforms. T here is superior subluxation of the base of first metatarsal at the first tarsometatarsal joint. Ther e is fragmentation at the base of the first metatarsal, as well as within the anterior aspect of the medial cuneiform and the base of the lateral cuneiform. Numerous bone fragments are identified throug hout the midfoot with surrounding soft tissue edema. There are dorsal and plantar heel spurs. Soft ti ssue edema and subcutaneous fluid is seen throughout the foot. There is no evidence of organized flui d collection to suggest abscess on these unenhanced images. The ankle mortise is maintained. The Achi lles tendon is intact as visualized. There is loculated fluid around the anterior (extensor) tendons, best seen on axial image #23 and around the posterior tendons on axial image #24. There is advanced atherosclerotic calcification of the regional arteries. IMPRESSION: 1. There is evidence of a homolateral Lisfranc type injury as detailed above. This is age indetermina nt, but likely chronic. Orthopedic follow-up will be required. 2. There is a bony fragmentation with numerous displaced bone fragments throughout the midfoot as det rito above. This is likely chronic. A component of acute on chronic fracture would be impossible to exclude, specifically at the base of the lateral cuneiform. Clinical correlation will be required. 3. There is diffuse soft tissue edema and subcutaneous fluid identified around the ankle. Correlate c linically for evidence of cellulitis. No organized fluid collection is seen to suggest abscess. 4. There is loculated fluid seen around the anterior and posterior tendons. This is greatest involvin g the anterior tendons. Correlate clinically for evidence of tenosynovitis. The sterility of this flu id cannot be assessed by imaging. ACT Negative or not required by law. law. Electronically signed by: Kwaku Cook M.D. 02/24/2025 2:55 PM
[2025-02-25 07:15] LABS: Hematocrit (blood only) 47.7 % (42.0-52.0); Hemoglobin 16.2 g/dl (14.0-18.0); Mean Corpuscular Hemoglobin 29.8 pg (25.0-34.0); Mean Corpuscular Volume 87.7 fL (80.0-100.0); Platelet Count 200 K/uL (130-400); RDW Standard Deviation 44.3 fL (36.4-46.3); Red Blood Count 5.44 M/uL (4.70-6.10); White Blood Count 15.83 K/ul (4.8-10.8)
[2025-02-25 07:42] LABS: Anion Gap 5.0 (3-11); Blood Urea Nitrogen 18.0 mg/dl (6-23); Calcium 9.1 mg/dl (8.6-10.3); Carbon Dioxide 32.0 mmol/L (21-32); Chloride 100.0 mmol/L (98-107); Creatinine Clr Calc Pharmacy 109.3 ml/min; Glucose 113.0 mg/dl (70-99(Fasting)); Magnesium 2.4 mg/dl (1.7-2.4); Potassium 3.9 mmol/L (3.5-5.1); Sodium 137.0 mmol/L (136-145)
--- NOTE | 2025-02-25 14:27 | Hospitalist Progress Note ---
Date of Service February 25, 2025 Assessment & Plan (1) Fracture of foot bone, right, closed: Plan 79M with PMH including Afib on eliquis, CAD s/p CABG on plavix, HFpEF, seizure disorder, NIDDM, HTN, HLD, ROBLES not on cpap who presents with R foot pain. #R foot pain -X rays showing R Lisfranc type injury with lateral displacement of the first through fifth metatarsals -Denies trauma but has peripheral neuropathy in his feet -Low suspicion for cellulitis at this time Plan - Discussed with podiatry, no plan for OR today, will reevaluate in a.m. for OR. Continue to hold blood thinners until then. -Hold home plavix and eliquis. Last dose am 02/23 -Pain control -PT/OT when able w/ clearance from podiatry. #Pre operative risk assessment -RCRI: 2, indicating a 5% risk of major cardiac event -METS: 2. no chest pain with exertion -Significant cardiac history but appears euvolemic -Medically and pharmacologically optimized for surgery -Further cardiac testing is unlikely to reduce surgical Risk -Proceed with surgery if indicated #PAF -Rate controlled on Toprol -Holding eliquis. resume CARLOS -Risks of stroke d/w patient #HFpEF -Trace b/l LE which daughter states is his baseline -No resp complaints. no orthopnea -TTE 03/06/23 reviewed, normal EF. no significant valvular abnormalities -Continue home lasix and GDMT #CAD -S/p CABG -Holding plavix -Continue high intensity statin -No chest pain #Seizure disorder -Last seizure 2010 per daughter -Follows with neuro as OP -Continue home lamictal and keppra #NIDDM: -Continue SGLT2. SSI BGM ACHS #History of leukocytosis and polycythemia: -Recently seen by [place] hematology and no major issues found per daughter Admission and Anticipated Discharge Date Admission Date: February 23, 2025 Subjective Patient was seen and examined at bedside. Patient was lying in bed, on room air, NAD, resting comfortably. Patient reports right lower extremity pain improved, no pain even w/ walking to restroom. Patient denies fever/chest pain/shortness of breath/cough. Physical Exam Physical Exam: General: Well appearing, NAD HEENT: EOMI, PERRLA Neck: Supple Cardiac: irregular rhythm. regular rate. no rubs gallops. systolic murmur Lungs: CTA no rhonchi wheezing or rales Abd: S NT ND BS positive : Deferred MSK: R foot in dressing. ROM limited by pain. Ext: trace b/l LE Edema Skin: Warm, Dry Neuro: AOx3 No focal deficits. Psych: Normal Mood Results & Data Results & Data Vital Signs (Past 12 Hours) Vital Signs Temp Pulse Resp BP BP Pulse Ox O2 Del Method 02/25/25 12:36 36.6 C 78 15 158/92 H 95 Room Air 02/25/25 08:41 Room Air 02/25/25 07:23 36.7 C 75 16 121/77 97 Room Air 02/25/25 07:09 36.7 C 77 18 125/76 93 Room Air
--- NOTE | 2025-02-25 16:48 | Podiatry Consultation ---
Date of Consultation February 25, 2025 Assessment & Plan (1) Lisfranc dislocation: Encounter type: initial encounter Laterality: right Qualified Code(s): S93.324A - Dislocation of tarsometatarsal joint of right foot, initial encounter (2) Fracture of foot bone, right, closed: Encounter type: initial encounter Qualified Code(s): S92.901A - Unspecified fracture of right foot, initial encounter for closed fracture (3) Charcot foot due to diabetes mellitus: Plan Homolateral Lisfranc dislocation of the right foot: Patient evaluated resting comfortably in hospital bed. Denies pain to the right foot. Patient does not feel that the change in the architecture of his foot, however long ago it may have occurred, has affected his gait. Reports a relatively antalgic gait and uses a walker for ambulation. With loss of protective sensation and CT results reviewed showing "likely chronic" homolateral Lisfranc injury believe it is likely that the midfoot dislocation is due at least in part to Charcot neuroarthropathy. Right foot is evaluated with no signs of open wound or external injury. Posterior splint is removed and offloading dressing applied to reduce pressure surrounding the medial prominence at the medial aspect of the cuneiform on the midfoot. -Consult placed with orthotics to have patient fit with a tall cam walker with offloading specific to the medial midfoot. -Current plan is to reevaluate the soft tissues of the right foot tomorrow morn ing and as long as there is no signs of soft tissue irritation or ischemic changes caused by tenting of the skin I will have patient fit with a cam walker and follow-up as an outpatient for surgical planning as needed. -Should patient show any signs of a failing soft tissue envelope in the right foot will require some level of deformity reduction with pinning of the unstable joints. Order placed for arterial duplex ultrasound given calcification of vessels and possible need for surgical intervention of the right foot. Plan to keep patient n.p.o. at midnight tonight and reevaluate foot in the morning. Patient's case discussed with hospitalist and orthopedic teams. Thank you for consulting podiatry to aid in the care of this patient. Will continue to follow while he remains in house and recommended follow-up in the diabetic foot clinic within 2 weeks of discharge. History of Present Illness Reason for Consultation: Lisfranc injury right foot Attending Physician: Arline Nava MD History of Present Illness Chai is a 79-year-old male who presented to [facility] at the urging of his daughter who is a nurse for evaluation following a fall approximately a week ago with pain to the right lower extremity specifically the right foot. Reports swelling to the right midfoot however pain has resolved by the time of evaluation today. He had an x-ray of his hip, tib-fib, knee without signs of fracture or dislocation. X-ray of the right foot revealed homolateral Lisfranc type injury with lateral displacement of the 1st through 5th metatarsals.CT results reviewed showing "likely chronic" homolateral Lisfranc injury. Patient evaluated by orthopedics over the weekend and placed in a well- padded posterior splint to the right lower extremity. Allergies Allergy/AdvReac Type Severity Reaction Status Date / Time lisinopril Allergy Intermediate HIVES Verified 02/23/25 12:10 Home Medications Medication Instructions Recorded Confirmed Type albuterol sulfate 90 mcg/actuation 2 puff inhalation Q4 PRN Shortness 06/18/19 02/23/25 History aerosol inhaler (Ventolin HFA) Of Breath amlodipine 5 mg tablet 2.5 mg PO QAM 06/18/19 02/23/25 History atorvastatin 80 mg tablet 80 mg PO QAM 06/18/19 02/23/25 History isosorbide mononitrate 30 mg 30 mg PO QAM 06/18/19 02/23/25 History tablet,extended release 24 hr lamotrigine 100 mg tablet 100 mg PO QAM 06/18/19 02/23/25 History (Lamictal) latanoprost 0.005 % eye drops 1 drp ophthalmic (eye) HS 06/18/19 02/23/25 History levetiracetam 750 mg tablet 1,500 mg PO BID 06/18/19 02/23/25 History losartan 25 mg tablet 25 mg PO QAM 06/18/19 02/23/25 History white petrolatum-mineral oil 83 1 applic ophthalmic (eye) Q4 PRN 06/18/19 02/23/25 History %-15 % eye ointment Dry Eye(S) levetiracetam 500 mg tablet 500 mg PO BID 05/15/22 02/23/25 History amoxicillin 500 mg capsule 2,000 mg PO UD PRN prior to dental 12/07/22 02/23/25 History procedures cholecalciferol (vitamin D3) 25 25 mcg PO BID 12/07/22 02/23/25 History mcg (1,000 unit) tablet (Vitamin D3) spironolactone 25 mg tablet 12.5 mg PO QAM 12/07/22 02/23/25 History apixaban 5 mg tablet (Eliquis) 5 mg PO BID 02/23/25 02/23/25 History brinzolamide 1 %-brimonidine 0.2 % 1 drp ophthalmic (eye) HS 02/23/25 02/23/25 History eye drops,suspension (Simbrinza) cephalexin 500 mg capsule 500 mg PO QID 02/23/25 02/23/25 History clopidogrel 75 mg tablet 75 mg PO QAM 02/23/25 02/23/25 History cyanocobalamin (vitamin B-12) 1,000 mcg PO DAILY 02/23/25 02/23/25 History 1,000 mcg tablet (Vitamin B-12) duloxetine 30 mg capsule,delayed 30 mg PO HS 02/23/25 02/23/25 History release empagliflozin 25 mg tablet 12.5 mg PO QAM 02/23/25 02/23/25 History (Jardiance) furosemide 40 mg tablet 40 mg PO QAM 02/23/25 02/23/25 History metoprolol succinate 25 mg 25 mg PO QAM 02/23/25 02/23/25 History tablet,extended release 24 hr nitroglycerin 400 mcg/spray 400 mcg sublingual DIRECTED PRN 02/23/25 02/23/25 History translingual Chest Pain Patient History Medical History Permanent atrial fibrillation Diverticular disease ASCVD (arteriosclerotic cardiovascular disease) Osteoarthritis Bulging lumbar disc Difficulty swallowing Diabetes mellitus, type 2 Glaucoma Tremor of right hand Singh's palsy Seizure 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 Escobar--on keppra/lamictal On anticoagulant therapy warfarin daily Sleep apnea 2L oxygen via N/C On home oxygen therapy 2L N/C at hs Surgical History History of excision of pilonidal cyst History of colonoscopy with polypectomy History of arthroscopy of right knee History of tooth extraction all upper teeth History of wisdom tooth extraction History of tonsillectomy History of heart artery stent x2--last 2005 per pt 2 stents total History of cardiac cath x2---1 prior to 2005 [place] and then [place] [facility] [place] Family History Sister Family history of diabetes mellitus Sister Family history of diabetes mellitus Brother Family history of esophageal cancer Other No family history of adverse response to anesthesia Social History Smoking Status: Never smoker Second Hand Exposure: No; Do You Dip or Chew Tobacco: No; Hx Alcohol Use: No Hx Substance Use: No Preferred Language: [place] Communication Ability: Effective Grove Superintendent Required: No Beliefs That Will Affect Care: None marital status: Current Living Situation: Family Current Living Situation Comment: son and DIL live with him How many Children do You have: 2 Other Information That Helps Us Care for You: No Feels Safe at Home: Yes Safety Concerns: Feels Safe At This Time Assistive Devices: Scooter/Electric Scooter and Walker Review of Systems Review of Systems: Denies pain in the right foot. Denies nausea, vomiting, fever, chills. All other systems reviewed and negative unless otherwise stated in HPI. Physical Exam Physical Exam: Const: Appears well developed and well nourished. No signs of acute distress present. CV: Extremities: No cyanosis or edema. Capillary refill time is less than 2 seconds all digits of the bilateral foot. Posterior tibial and dorsalis pedis pulses are nonpalpable bilateral. Lymph: No palpable or visible regional lymphadenopathy. Neuro: Loss of protective sensation bilateral foot and ankle Psych: Mood/Affect: Mood is normal. Affect is normal. Cognition: Orientation is intact to person, place and time. Focused lower extremity musculoskeletal exam: Leg: No pain with compression of the calf muscle. Feet: Right foot with loss of medial arch height. Skin is under mild tension compared to surrounding soft tissues over the medial cuneiform with lateral dislocation of the first metatarsal base. Skin over the medial cuneiform is blanchable with a capillary refill time 2 to 3 seconds. No ecchymosis. No pain to palpation of the right foot. Though the first met cuneiform joint is dislocated it is relatively stable in its current location and unable to distract or shift dorsally or plantarly suggesting that it is likely been in th is position for some time and allowed to develop fibrosis. No signs of external injury. Mild increased warmth of the right foot compared to the left with mild edema and erythema. Results & Data Vital Signs (Past 12 Hours) Vital Signs Temp Pulse Resp BP BP Pulse Ox O2 Del Method 02/25/25 12:36 36.6 C 78 15 158/92 H 95 Room Air 02/25/25 08:41 Room Air 02/25/25 07:23 36.7 C 75 16 121/77 97 Room Air 02/25/25 07:09 36.7 C 77 18 125/76 93 Room Air Laboratory Results White blood count 15.[address] right foot 02/24/2025: IMPRESSION: 1. There is evidence of a homolateral Lisfranc type injury as detailed above. This is age indeterminant, but likely chronic. Orthopedic follow-up will be required. 2. There is a bony fragmentation with numerous displaced bone fragments throughout the midfoot as detailed above. This is likely chronic. A component of acute on chronic fracture would be impossible to exclude, specifically at the base of the lateral cuneiform. Clinical correlation will be required. 3. There is diffuse soft tissue edema and subcutaneous fluid identified around the ankle. Correlate clinically for evidence of cellulitis. No organized fluid collection is seen to suggest abscess. 4. There is loculated fluid seen around the anterior and posterior tendons. This is greatest involving the anterior tendons. Correlate clinically for evidence of tenosynovitis. The sterility of this fluid cannot be assessed by imaging. PG Care Time/CCT Total # of Minutes Spent Total Time Spent with Patient: Total time spent is greater than 50% in coordination of care (as documented) at patient's floor/unit and/or counseling patient: Coding Level of Care Code 65742 INT INP/OBS CARE 3/75MIN Diagnoses Lisfranc dislocation S93.324A Encounter type: initial encounter Laterality: right Closed fracture of right foot, initial encounter S92.901A Encounter type: initial encounter Charcot foot due to diabetes mellitus E11.610
--- NOTE | 2025-02-26 02:53 | Ultrasound Report ---
Exam(s): US ARTERIAL RIGHT LOWER EXTREMITY EXAM: US Duplex Right Lower Extremity Arteries CLINICAL HISTORY: Reason for exam: Possible need for surgical reconstruction right. TECHNIQUE: Real-time duplex ultrasound scan of the right lower extremity arteries integrating B-mode two-dimensional vascular structure, Doppler spectral analysis and color flow Doppler imaging. COMPARISON: No relevant prior studies available. FINDINGS: Right common femoral artery: The right common femoral artery demonstrates a triphasic waveform, 55 cm/sec. Right deep femoral artery: Right deep femoral artery, triphasic waveform, 54 cm/sec. Right superficial femoral artery: Right superficial femoral artery, triphasic waveform, 92, 77, 69, and 55 cm/sec. Right popliteal artery: Right popliteal artery, triphasic waveform, 44 and 41 cm/sec. Right calf/foot arteries: Right anterior tibial artery, triphasic waveform, 45 and 54 cm/sec proximal, monophasic with very slow flow in the mid anterior tibial artery and occlusion distally. Right posterior tibial artery, multiphasic waveform, 53 and 68 cm/sec proximally, obscured distally. Right peroneal artery, multiphasic waveform, 60 cm/sec. Soft tissues: Bandaging over the lower leg. IMPRESSION: Right anterior tibial artery, triphasic waveform, 45 and 54 cm/sec proximal, monophasic with very slow flow in the mid anterior tibial artery and occlusion distally. The dorsalis pedis is obscured. Communications: Call Doctor Above results Electronically signed by: Juan Medina MD 02/26/25 02:52 AM
--- NOTE | 2025-02-26 03:24 | Communication Note ---
Date of Service: February 26, 2025 S/O: Received a call from Aethon about the result for the patient's US Duplex of pt's r. lower extremity. The results showed a DVT of the r. anterior tibial artery with an occlusion distally and slow flow in mid r. anterior tibial artery. A/P: Patient already on Eliquis, 5 mg, PO, BID. Could consider increasing the dosage of Eliquis to 10 mg, PO, BID for 7 days, but likely of little benefit. This could be considered a failure of Eliquis, since pt has been on it long-term (since at least December,) and possibly indicate another anti-coagulant drug should be trialed. Daytime provider can make that decision. attending addendum: change to heparin drip, and consult vascular surgery in the am
[2025-02-26] MEDS ORDERED: Nursing to Pharmacy Communication SCH ×2 (07:15→10:30)
[2025-02-26 08:25] LABS: Anion Gap 5.0 (3-11); Calcium 9.3 mg/dl (8.6-10.3); Carbon Dioxide 30.0 mmol/L (21-32); Chloride 102.0 mmol/L (98-107); Potassium 4.1 mmol/L (3.5-5.1); Sodium 137.0 mmol/L (136-145)
[2025-02-26 08:30] LABS: Blood Urea Nitrogen 18.0 mg/dl (6-23); Creatinine Clr Calc Pharmacy 105.1 ml/min; Glucose 128.0 mg/dl (70-99(Fasting))
[2025-02-26] MEDS: CLOPIDOGREL BISULFATE 75 MG TAB PO SCH (09:32)
[2025-02-26] MEDS: APIXABAN 5 MG TABLET PO SCH (09:32)
[2025-02-26] MEDS: INSULIN ASPART PER UNIT CHARGE SC SCH ×2 (09:35→11:51)
[2025-02-26 14:55] VITALS: BP 111/72; RESP 16; TEMP 97.5; O2SAT 94
--- NOTE | 2025-02-26 15:39 | Discharge Summary ---
Date of Service February 26, 2025 Admission HPI Per Admitting Provider Mr. Fuchs is a very pleasant 79M with PMH including Afib on eliquis, CAD s/p CABG on plavix, HFpEF, seizure disorder, NIDDM, HTN, HLD, ROBLES not on cpap who presents with R foot pain. He lives at home with his daughter. Started one week ago. There was erythema and he was [facility] without any improvement. He was then transitioned to keflex without improvement as well. He denies any falls before onset of pain and erythema but does endorse neuropathy in his feet. Otherwise he feels well and denies any complaints. Patient denies F/C, CP, palpitations, SOB, dyspnea, abd pain, N/V/D ED vitals stable Labs: pending Imaging: R foot: Lisfranc type injury with lateral displacement of the first through fifth metatarsals ED spoke with ortho SONJA who recommended he be admitted for surgery Admission Exam Per Admitting Provider Vitals and labs reviewed General: Well appearing, NAD HEENT: EOMI, PERRLA Neck: Supple Cardiac: irregular rhythm. regular rate. no rubs gallops. systolic murmur Lungs: CTA no rhonchi wheezing or rales Abd: S NT ND BS positive : Defferred MSK: R foot erythema and TTP over metatarsals. ROM limited by pain. Ext: trace b/l LE Edema cyanosis Skin: Warm, Dry Neuro: AOx3 No focal deficits. Psych: Normal Mood Principal Diagnosis Fracture of foot bone, right, closed: Discharge Exam General: Well appearing, NAD HEENT: EOMI, PERRLA Neck: Supple Cardiac: irregular rhythm. regular rate. no rubs gallops. systolic murmur Lungs: CTA no rhonchi wheezing or rales Abd: S NT ND BS positive : Deferred MSK: R foot in dressing. ROM limited by pain. Distal neurovascular status wnl/no discoloration, pulses intact on Rt foot. Ext: trace b/l LE Edema Skin: Warm, Dry Neuro: AOx3 No focal deficits. Psych: Normal Mood Discharge Data Allergies Allergy/AdvReac Type Severity Reaction Status Date / Time lisinopril Allergy Intermediate HIVES Verified 02/23/25 12:10 Consultations 02/23/25 14:00 ED Decision to Admit Stat 02/23/25 17:07 Consult Orthopedic Surgery Routine Ordered Studies 02/24/25 09:59 CT foot RT wo con Routine 02/25/25 21:43 US arterial duplex LE RT Routine Hospital Course (1) Fracture of foot bone, right, closed: Plan 79M with PMH including Afib on eliquis, CAD s/p CABG on plavix, HFpEF, seizure disorder, NIDDM, HTN, HLD, ROBLES not on cpap who presents with R foot pain. #R foot pain -X rays showing R Lisfranc type injury with lateral displacement of the first through fifth metatarsals -Denies trauma but has peripheral neuropathy in his feet -Low suspicion for cellulitis at this time -Podiatry ordered RLE arterial Doppler which showed abnormal study. Discussed w/ dr enriquez, recommends no surgical intervention /no need to change anticoagulation and ok for discharge. Plan - Discussed with podiatry, no plan for OR inpatient, will reevaluate as OP possibly would like conservative Mx. - c/w home blood thinners. - Pt reports pain controlled well. - d/w podiatry ok for dc w/ walking boot. - pt to c/w OP PT. - Pt advised to f/u w/ vascular sx for RLE arterial findings f/u upon discharge. #PAF -Rate controlled on Toprol. c/w eliquis. #HFpEF -Trace b/l LE which daughter states is his baseline -No resp complaints. no orthopnea -TTE 03/06/23 reviewed, normal EF. no significant valvular abnormalities -Continue home lasix and GDMT #CAD -S/p CABG -c/w plavix -Continue high intensity statin -No chest pain #Seizure disorder -Last seizure 2010 per daughter -Follows with neuro as OP -Continue home lamictal and keppra #NIDDM: -Continue SGLT2. SSI BGM ACHS #History of leukocytosis and polycythemia: -[facility] and no major issues found per daughter Following instructions were communicated to patient's daughter over the phone. Patient is being discharged with following instructions at the point of discharge: Follow-up with your primary care physician within a week time and likely you will need labs CBC/CMP/magnesium/phosphorus. Follow-up with podiatry in 1 to 2 weeks time upon discharge. Due to concern of partial arterial occlusion in your right lower extremity, recommend that you follow-up with vascular surgery in 2 to 4 weeks time upon discharge. Maintain compliance with your Eliquis and Plavix. Monitor for distal discoloration/pain/decreased pulses and report to emergency if such happens. While on Plavix, avoid [id number] omeprazole as it decreases the efficacy of Plavix. Continue with physical therapy upon discharge. Take your medications as prescribed. Please make sure that you are able to get your medications today by calling your pharmacy before you leave the hospital so that your treatment continuity is not broken. Home Health Attestation I certify that this patient is under my care and that I, or a physicians personal assistant working with me, had a face to-face encounter that meets the home health [id number] encounter requirements with this patient. The encounter with the patient was in whole, or in part, for the following medical condition, which is the primary reason for home health care (list medical condition): I certify that, based on my findings, the following services are medically necessary home health services: My clinical findings support the need for the above services because: Further, I certify that my clinical findings support that this patient is homebound (i.e. absences from home require considerable and taxing effort and are for medical reasons or adventism services or infrequently or of short duration when for other reasons) because: Certification for Home Health Services: Based on the above findings, I certify that this patient is confined to the home and needs intermittent halfway care, physical therapy and/or speech therapy or continues to need occupational therapy. The patient is under my care, and I have initiated the establishment of the plan of care. This patient will be followed by a physician who will periodically review the plan of care. Total Time Total Time Spent Total Time Spent (In Minutes): 45 Discharge Plan Discharge Items Patient Disposition: Home - Self-Care Reason For Visit: ANKLE PAIN Discharge Diagnosis: Fracture of foot bone, right, closed: Condition on Discharge: Fair Activity: As commented below Activity Comment: continue with physical therapy upon discharge Non-emergency contact: Primary Care Provider Call non-emergency contact if: you have any medication questions Follow-up/Referrals: Domo Mcfarlane MD [Primary Care Provider] - Tad Gale [Physician Duty Engineer] - (Date & Time 03/07/2025 12:30 PM Provider: Tad Gale PA-C Cardiology [facility] ) Jameson Gross DPM [Surgeon] - Diet: Carb Consistent or DM2 Addtl Attending Provider Instructions: Follow-up with your primary care physician within a week time and likely you will need labs CBC/CMP/magnesium/phosphorus. Follow-up with podiatry in 1 to 2 weeks time upon discharge. Due to concern of partial arterial occlusion in your right lower extremity, recommend that you follow-up with vascular surgery in 2 to 4 weeks time upon discharge. Maintain compliance with your Eliquis and Plavix. Monitor for distal discoloration/pain/decreased pulses and report to emergency if such happens. While on Plavix, avoid [id number] omeprazole as it decreases the efficacy of Plavix. Continue with physical therapy upon discharge. Take your medications as prescribed. Please make sure that you are able to get your medications today by calling your pharmacy before you leave the hospital so that your treatment continuity is not broken. Pending Studies at Discharge: No Stand-Alone Forms: [facility], Smoking Cessation Medications and DC Order Prescriptions: Continued latanoprost 0.005 % Drops 1 drp OPHTHALMIC (EYE) HS atorvastatin 80 mg Tablet 80 mg PO QAM isosorbide mononitrate 30 mg Tablet Extended Release 24 Hr 30 mg PO QAM amlodipine 5 mg Tablet 2.5 mg PO QAM losartan 25 mg Tablet 25 mg PO QAM levetiracetam 750 mg Tablet 1,500 mg PO BID Rx Instructions: Take w/ 500mg to equal 2000mg by mouth twice daily albuterol sulfate [Ventolin HFA] 90 mcg/actuation Hfa Aerosol Inhaler 2 puff INHALATION Q4 PRN (Reason: Shortness Of Breath) lamotrigine [Lamictal] 100 mg Tablet 100 mg PO QAM white petrolatum-mineral oil 83-15 % Ointment 1 applic OPHTHALMIC (EYE) Q4 PRN (Reason: Dry Eye(S)) levetiracetam 500 mg tablet 500 mg PO BID Rx Instructions: Take w/ 1500mg (750mg x 2) to equal 2000mg by mouth twice daily spironolactone 25 mg Tablet 12.5 mg PO QAM cholecalciferol (vitamin D3) [Vitamin D3] 25 mcg (1,000 unit) Tablet 25 mcg PO BID amoxicillin 500 mg Capsule 2,000 mg PO UD PRN (Reason: prior to dental procedures) furosemide 40 mg tablet 40 mg PO QAM cyanocobalamin (vitamin B-12) [Vitamin B-12] 1,000 mcg Tablet 1,000 mcg PO DAILY clopidogrel 75 mg tablet 75 mg PO QAM nitroglycerin 400 mcg/spray [place],Non-Aerosol 400 mcg sublingual DIRECTED PRN (Reason: Chest Pain) metoprolol succinate 25 mg tablet extended release 24 hr 25 mg PO QAM duloxetine 30 mg capsule,delayed release(DR/EC) 30 mg PO HS Eliquis 5 mg tablet 5 mg PO BID Simbrinza 1-0.2 % Drops,Suspension 1 drp OPHTHALMIC (EYE) HS Jardiance 25 mg tablet 12.5 mg PO QAM Discontinued cephalexin [Keflex] 500 mg Capsule 500 mg PO QID Rx Instructions: Start Date 02/21/25 x7 day supply Discharge Orders: Discharge Order (Routine); Ordered 02/26/25 Ordered By: Arline Nava Admission Data Admit Date/Time: 02/23/25 13:53 Attending Provider: Arline Nava Admit Provider: Edgard Larry Primary Care Provider: Domo Mcfarlane Other Providers: Edgard Larry; Thanh Lassiter; [facility]
[2025-02-26 16:09] VITALS: PULSE 87
--- NOTE | 2025-02-26 22:23 | Podiatry Progress Note ---
Date of Service February 26, 2025 Assessment & Plan (1) Charcot foot due to diabetes mellitus: Plan: Duplex arterial ultrasound 02/25/2025: Monophasic with very slow flow in the mid anterior tibial artery and occlusion distally. Dorsalis pedis artery is obscured. Discussed with hospitalist team patient will continue current anticoagulation on Eliquis with no plan for surgical intervention from a vascular standpoint. Patient evaluated hospital bed this morning with no signs of soft tissue disruption to the right foot. Okay for discharge from podiatry standpoint following cam boot fitting and evaluation by PT/OT. Patient is encouraged to minimize ambulation when possible and use walker at all times when ambulating for support with CAM boot in place. Will reevaluate right foot as an outpatient to determine if surgical intervention is required. Patient to follow-up in the diabetic foot clinic within 2 weeks of discharge. (2) Lisfranc dislocation: (3) Fracture of foot bone, right, closed: Admission and Anticipated Discharge Date Admission Date: February 23, 2025 Subjective Patient seen this morning resting comfortably in hospital bed. Denies pain to the right foot. Denies issues with ambulation to the restroom. Awaiting cam boot and PT OT evaluation. Review of Systems Review of Systems: Denies pain in the right foot. Denies nausea, vomiting, fever, chills. All other systems reviewed and negative unless otherwise stated in HPI. Physical Exam Physical Exam: Const: Appears well developed and well nourished. No signs of acute distress present. CV: Extremities: No cyanosis or edema. Capillary refill time is less than 2 seconds all digits of the bilateral foot. Posterior tibial and dorsalis pedis pulses are nonpalpable bilateral. Lymph: No palpable or visible regional lymphadenopathy. Neuro: Loss of protective sensation bilateral foot and ankle Psych: Mood/Affect: Mood is normal. Affect is normal. Cognition: Orientation is intact to person, place and time. Focused lower extremity musculoskeletal exam: Leg: No pain with compression of the calf muscle. Feet: Right foot with loss of medial arch height. Skin over the medial cune iform is blanchable with a capillary refill time 2 to 3 seconds. No ecchymosis. No pain to palpation of the right foot. Though the first met cuneiform joint is dislocated it is relatively stable in its current location and unable to distract or shift dorsally or plantarly suggesting that it is likely been in this position for some time and allowed to develop fibrosis. No signs of external injury. Mild increased warmth of the right foot compared to the left with mild edema and erythema. Results & Data Results & Data Vital Signs (Past 12 Hours) Vital Signs Temp Pulse Pulse Resp BP BP Pulse Ox 02/26/25 16:04 36.4 C L 87 72 16 111/72 130/77 94 02/26/25 14:53 36.4 C L 72 16 111/72 94 O2 Del Method 02/26/25 16:04 02/26/25 14:53 Room Air Coding Level of Care Code 94917 SUB INP/OBS CARE 235MIN Diagnoses Charcot foot due to diabetes mellitus E11.610 Lisfranc dislocation S93.324A Encounter type: initial encounter Laterality: right Closed fracture of right foot, initial encounter S92.901A Encounter type: initial encounter (2) Lisfranc dislocation Encounter type: initial encounter Laterality: right Qualified Code(s): S93.324A - Dislocation of tarsometatarsal joint of right foot, initial encounter (3) Fracture of foot bone, right, closed Encounter type: initial encounter Qualified Code(s): S92.901A - Unspecified fracture of right foot, initial encounter for closed fracture
== END 2025-02-26 17:42 | disposition home or self-care (01) | DRG 563 ==
LOC: ED 08:56 → SUATTDRO 13:53 → 3N 13:53